=== PATIENT | male | born 1980 | race Caucasian/White ===

== ENCOUNTER 2018-07-22 00:19 | Emergency (ER) | payer OTHER, SELFPAY ==
[2018-07-22 00:20] VITALS: BP 138/93; PULSE 79; RESP 16; TEMP 35.9; O2SAT 98; BMI 34.6
--- NOTE | 2018-07-22 00:22 | ED.RN ---
RN CALLED FOR EKG, NO OLD EKGS IN MUSE
--- NOTE | 2018-07-22 01:10 | EKG12_ITS ---
Test Reason : PALPITATIONS Blood Pressure : / mmHG Vent. Rate : 069 BPM Atrial Rate : 069 BPM P-R Int : 162 ms QRS Dur : 092 ms QT Int : 386 ms P-R-T Axes : 005 063 045 degrees QTc Int : 413 ms Normal sinus rhythm Normal ECG Confirmed by INGRIS RICHMOND, RICKY ([id number]), newspaper editor DONNA AVELAR ([id number]) on 07/24/2018 1:27:05 PM Referred By: [email or web address] Confirmed By:RICKY AMADO MD
[2018-07-22 01:23] LABS: Absolute Lymphocyte Count 3.02 X10^3/ul (0.83-4.51); Absolute Neutrophil Count 2.2 X10^3/uL (2.0-7.7); Basophil# 0.04 X10^3/uL; Basophil% 0.6 % (0-1); Eosinophil# 0.26 X10^3/uL; Eosinophils% 4.1 % (0-5); Hematocrit 42.5 % (40-54); Hemoglobin 14.1 g/dl (13.0-16.5); Lymphocyte # 3.02 X10^3/ul (4.0); Mean Corp Hgb Conc 33.2 g/gl (32-36); Mean Corpuscular Hgb 27.8 pg (27.0-32.0); Mean Corpuscular Volume 83.8 fL (80-94); Mean Platelet Vol. 9.9 fl (6.2-12.0); Monocyte# 0.72 X10^3/uL; Monocyte% 11.4 % (0-10); Neutrophil # 2.24 X10^3/uL (2.7-7.7); Neutrophil % 35.7 % (47-70); Platelet Count 255 K/mm3 (150-450); RBC Distribution Width CV 13.6 % (11.6-14.6); RBC Distribution Width SD 40.9 fl (35.1-43.9); Red Blood Count 5.07 M/mm3 (4.6-6.2); White Blood Count 6.3 K/mm3 (4.4-11.0)
[2018-07-22 01:28] LABS: POSITIVE COUNT NO; POSITIVE DIFFERENTIAL NO; POSITIVE MORPHOLOGY NO
[2018-07-22 01:42] LABS: Anion Gap 4 (5-15); BUN 17 mg/dL (7-18); BUN/Creat Ratio 15.3 RATIO (10-20); Calcium,Total 8.9 mg/dL (8.5-10.1); Chloride 106 mmol/L (98-107); Creatinine, Serum 1.11 mg/dL (0.70-1.30); EST Glomerular Filtration Rate 78 mL/min (>60); Est Glom Filt Rate - Afr Amer 95 mL/min (>60); Estimated Creatinine Clearance 89.35 ml/min; Glucose 107 mg/dL (74-106); Magnesium 2.2 mg/dL (1.6-2.6); Potassium 3.9 mmol/L (3.5-5.1); Sodium Level 139 mmol/L (136-145); Thyroid Stim Hormone (TSH) 2.75 uIU/mL (0.358-3.74)
--- NOTE | 2018-07-22 02:02 | ED.DCSUM_ITS ---
- ER Visit Summary Date of Service: 07/22/18 Chief Complaint: Palpitations History of Present Illness: The patient is a 38 M who presents with palpitations. The began about 1-1/2 weeks ago. He denies any chest pain shortness of breath nausea vomiting diarrhea. No fever. He drinks a couple of sodas a week. He has low caffeine intake. He does not drink energy drinks or coffee. No history of prior similar symptoms. He denies any illicit drug use. Physical Examination: Afebrile vitals normal Moist mucous membranes Heart regular rate and rhythm Lungs are clear Abdomen soft Alert Test Results: EKG shows normal sinus rhythm at a rate of 69. CBC BMP normal. TSH normal. Magnesium normal. Emergency Department Course and Treatment: Patient has had normal rhythm on cardiac monitoring here and EKG is normal. Laboratory studies normal. He was advised that symptoms could be related to process such as PACs or PVCs. He was advised to follow-up with his primary care physician. He was advised if symptoms continue he may benefit from outpatient cardiac monitoring. He understands return for new or worsening symptoms. He was discharged. Treatment Plan: [] Disposition: Discharge Impression: Palpitations This note was generated with [employer] dictation software. It may contain incorrect words, spelling, and punctuation that were not noted in review of the chart prior to signing ED Disposition - Plan for ED Patient: Referrals: Lindy Cleveland DO [Primary Care Provider] -
--- NOTE | 2018-07-22 02:02 | ED.DEP ---
ED Disposition - Plan for ED Patient: Instructions: ED Palpitations Referrals: Lindy Cleveland DO [Primary Care Provider] -
[2018-07-22 02:09] VITALS: BP 124/81; PULSE 72; RESP 16; O2SAT 99
== END 2018-07-22 02:10 | disposition home or self-care (01) ==
LOC: ED 01:12
PROVIDERS: Emergency Provider Emergency Medicine
DX: R00.2 Palpitations (principal)
CPT/HCPCS: 80048; 83735; 84443; 85025; 93005; 99283; A4216

== ENCOUNTER → 2023-05-30 | Outpatient (CLI) | payer OTHER, SELFPAY ==
[2023-05-30 17:21] LABS: Bacteria 0 SEEN /hpf (None Seen); Mucous, Urine 0 SEEN /hpf (<or=2+); White Blood Cells 0 SEEN /hpf (0-5)
[2023-05-30 17:33] LABS: Color, Urine Yellow (Yellow); Glucose, Dipstick Normal (Normal); Ketone-Dipstick Negative (Negative); Leukocyte Esterase-Dipstick Negative /ul (Negative); Nitrite-Dipstick Negative (Negative); Occult Blood-Urine 10 /ul (Negative); Protein-Dipstick Negative (Negative); Urine Bilirubin Dipstick Negative (Negative); Urine Clarity Clear (Clear); Urine Urobilinogen Normal (Normal)
[2023-05-30 17:37] LABS: Absolute Lymphocyte Count 3.13 X10^3/uL (0.83-4.51); Absolute Neutrophil Count 4.9 X10^3/uL (2.0-7.7); Basophil# 0.05 X10^3/uL; Basophil% 0.6 % (0-1); Eosinophil# 0.26 X10^3/uL; Eosinophils% 2.9 % (0-5); Hematocrit 44.5 % (40-54); Hemoglobin 14.1 g/dL (13.0-16.5); Lymphocyte # 3.13 X10^3/ul (0.83-4.51); Lymphocyte % 35.4 % (19-41); Mean Corp Hgb Conc 31.7 g/dL (32-36); Mean Corpuscular Volume 85.2 fL (80-94); Mean Platelet Vol. 9.2 fl (6.2-12.0); Monocyte# 0.49 X10^3/uL; Monocyte% 5.5 % (0-10); NRBC Flagged by Analyzer 0 % (0-5); Neutrophil % 55.4 % (47-70); Platelet Count 295 K/mm3 (150-450); RBC Distribution Width CV 13.3 % (11.6-14.6); RBC Distribution Width SD 41.3 fl (35.1-43.9); Red Blood Count 5.22 M/mm3 (4.6-6.2); White Blood Count 8.9 K/mm3 (4.4-11.0)
[2023-05-30 17:49] LABS: Red Blood Cells-Urine 0-5 SEEN /hpf (0-5); Squamous Epithelial Cells - UA 0-5 SEEN /hpf (0-5)
[2023-05-30 18:20] LABS: ALB/GLOB Ratio 1.3 RATIO (0.9-2.4); AST(SGOT) 18 U/L (15-37); Alanine Aminotransfer ALT/SGPT 40 U/L (16-61); Albumin, Serum 4.2 g/dL (3.2-5.0); Alkaline Phosphatase 75 U/L (45-117); Anion Gap 1 (5-15); BUN 16 mg/dL (7-18); BUN/Creat Ratio 15.1 RATIO (10-20); Calcium,Total 9.4 mg/dL (8.5-10.1); Chloride 105 mmol/L (98-107); Cholesterol 162 mg/dL (200); Creatinine, Serum 1.06 mg/dL (0.70-1.30); EST Glomerular Filtration Rate 81 mL/min (>60); Est Glom Filt Rate - Afr Amer 98 mL/min (>60); Globulin 3.2 g/dL (2.2-4.2); Glucose 96 mg/dL (74-106); High Density Lipoprotein 65 mg/dL; PSA,Total- Diagnostic 0.75 ng/mL (0.0-4.0); Potassium 3.9 mmol/L (3.5-5.1); Protein, Total 7.4 g/dL (6.4-8.2); Sodium Level 135 mmol/L (136-145); Triglycerides 121 mg/dL; Very Low Density Lipoprotein 24 mg/dL (5-40)
--- OUTSIDE RECORDS SUMMARY | 2023-05-30 20:04 | XMS RPT_ITS | CCD ---
Author Name Unknown Address [address] [place] [address] Organization [facility] Care Team Providers Care Supply Chain Consultant Name Role Phone DR LINDY CLEVELAND DO Primary Care Physician Lindy Cleveland DO Primary Care Provider LINDY CLEVELAND Primary Care Unavailable LINDY CLEVELAND Primary Care Unavailable Allergies Allergy Classification Reported Allergen(s) Allergy Type Date of Onset Reaction(s) Facility (2 sources) environmental [Other] Propensity to adverse reactions 6 [facility] (1 source) OTHER; Translations: [OTHER] Propensity to adverse reactions (disorder) 6 [facility] Rep[facility] Medications Current Medications Medication Drug Class(es) Dates Sig (Normalized) Sig (Original) doxycycline monohydrate 100 mg oral tablet (1 source) Tetracycline-clas s Drug Start: 08-27-2022 End: 09-01-2022 take 1 tablet by mouth twice daily doxycycline monohydrate 100 mg tablet Take 1 tablet by mouth twice daily for 5 days. 10 tablet 0 08/27/2022 09/01/2022 Active Completed/Discontinued Medications Medication Drug Class(es) Dates Sig (Normalized) Sig (Original) [id number] 200 actuat albuterol 0.09 mg/actuat metered dose inhaler (2 sources) beta2-Adrenergic Agonist Start: 09-21-2006 take 2 puff(s) by inhalation every four hours as needed for cough Albuterol Sulfate (PROVENTIL HFA) 90 mcg/Actuation INHALATION HFAA Indications: Allergic rhinitis, cause unspecified 2 puffs every four hours as needed for cough, wheezing , chest tightness or shortness of breath and 15-20 minutes pre-exercise. Use with spacer. 1 2 09/21/2006 Active Problems Problem Classification Problem Date Documented Da te Episodic/Chronic Other upper respiratory infections (1 source) Chronic sinusitis; Translations: [Chronic sinusitis, unspecified] Chronic Other upper respiratory infections (1 source) Acute upper respiratory infection; Translations: [Acute upper respiratory infection, unspecified] 02-25-2023 Episodic Results Test Name Value Interpretation Reference Range Facil ity Vital Signs Date Time Vital Sign Value Performing Clinician Yohan jenkins 02-25-2023 09:16-0400 Body temperature 99.3 [degF] Mayra Avalos EVENT SECURITY OFFICER.REFUSE LABORER Work Phone: [facility] 02-25-2023 09:16-0400 Body weight 107.41 kg Mayra Avalos EVENT SECURITY OFFICER.REFUSE LABORER Work Phone: [facility] 02-25-2023 09:16-0400 Diastolic blood pressure 84 mm[Hg] Mayra Avalos EVENT SECURITY OFFICER.REFUSE LABORER Work Phone: [facility] 02-25-2023 09:16-0400 Heart rate 88 /min Mayra Avalos EVENT SECURITY OFFICER.REFUSE LABORER Work Phone: [facility] 02-25-2023 09:16-0400 Respiratory rate 16 /min Mayra Avalos EVENT SECURITY OFFICER.REFUSE LABORER Work Phone: [facility] 02-25-2023 09:16-0400 SaO2% (BldA) [Mass fraction] 95 % Mayra Avalos EVENT SECURITY OFFICER.REFUSE LABORER Work Phone: [facility] 02-25-2023 09:16-0400 Systolic blood pressure 132 mm[Hg] Mayra Avalos EVENT SECURITY OFFICER.REFUSE LABORER Work Phone: [facility] 08-27-2022 14:54-0400 Body temperature 98.4 [degF] Krislyn Aberegg PA Work Phone: [facility] 08-27-2022 14:54-0400 Body weight 110.41 kg Krislyn Aberegg PA Work Phone: [facility] 08-27-2022 14:54-0400 Diastolic blood pressure 82 mm[Hg] Krislyn Aberegg PA Work Phone: [facility] 08-27-2022 14:54-0400 Heart rate 90 /min Krislyn Aberegg PA Work Phone: [facility] 08-27-2022 14:54-0400 Respiratory rate 16 /min Krislyn Aberegg PA Work Phone: [facility] 08-27-2022 14:54-0400 SaO2% (BldA) [Mass fraction] 96 % Krislyn Aberegg PA Work Phone: [facility] 08-27-2022 14:54-0400 Systolic blood pressure 128 mm[Hg] Krislyn Aberegg PA Work Phone: [facility] Encounters Encounter Date Encounter Type Care Provider Facility Start: 02-25-2023 End: 02-25-2023 ambulatory LINDYKRISTOPHER CLEVELAND Facility:[facility] Start: 02-25-2023 End: 02-25-2023 Patient encounter procedure Mayra Avalos APRN.CNP Work Phone: [facility] Procedures Date Procedure Procedure Detail Performing Clinician Start: 02-25-2023 STREP A MOLECULAR (POC) Mayra Avalos APRN.REFUSE LABORER Work Phone: Plan of Treatment Date Care Activity Detail Author Start: 12-23-2022 Influenza vaccination [facility] Start: 04-24-2022 DEPRESSION ASSESSMENT DEPRESSION ASS ESSMENT [facility] Start: 2014 Lipid 1996 panel - S jose miguel or Plasma Lipid Screening [facility] Start: 2014 LIPID SCREEN LIPID SCREEN [facility] Start: 1998 Urine microalbumin profile DTAP,TDAP ,TD (1 - Tdap) [facility] Start: 08-27-1997 Urine microalbumin profile DTa P,Tdap,Td Vaccine (2 - Tdap) [facility] Start: 1997 HEPATITIS C SCREENING HEPATITIS C SC REENING [facility] Start: 1997 HIV SCREENING HIV SCREENING [facility] Start: 1979 COVID-19 VACCINE (#1) COVID-19 VACCI NE (#1) [facility] Start: 1979 HEPATITIS B (1 of 3 - 3-dose series) HEPATITIS B (1 of 3 - 3-dose series) [facility] Immunizations Immunization Date Immunization Notes Care Provider Lisa taylor 02-27-2016 influenza virus vaccine, unspecified formulation Mayra Avalos APRN.REFUSE LABORER Work Phone: [facility] 01-24-2009 influenza virus vaccine, unspecified formulation Jeremie GONZALEZ Work Phone: [facility] Work Phone: Payers Date Payer Category Payer Unknown [employer] [id number] 2020-Present [phone] [address] [place] [address] PPO [id number] 2020 Unknown [id number] Social History Date Type Detail Facility Never smoker [facility] Sex Assigned At Male [facility] Start: 08-27-2022 Tobacco smoking stat [facility] Never smoked tobacco [facility] Start: 08-27-2022 Tobacco use and exposure Smokeless tobacco non-user [facility] Start: 08-27-2022 End: 02-25-2023 Alcohol intake Current non-drinker of alcohol (finding) [facility] Start: 1980 Sex Assigned At Not on file [facility] Start: 11-05-2020 End: 02-25-2023 History of Social function [facility] Start: 11-05-2020 End: 02-25-2023 Tobacco use panel [facility] National Score (1-100), lower number is lower risk Not on file [facility] Progress note 02-25-2023 Note Date & Type Note Facility 02-25-2023 Note HNO ID: [id number] Author: Mayra Avalos APRN.CNP Service: ? Author Type: Nurse Practitioner Type: Progress Notes Filed: 02/25/2023 9:43 AM Note Text: This note was created using NoteWriter. Subjective Bryant Marks is a 42 year old male. 42 year old male with PMH GERD presents for illness. Acute onset 4 days ago +sore throat +cough +congestion + headache +stuffy nose +body aches +chills Denies N/V/D Denies fever Has used Mucinex Ibuprofen Denies tobacco usage. The history is provided by the patient. No customs collector was used. Cough This is a new problem. The current episode started more than 2 days ago. The problem occurs constantly. The problem has not changed since onset.The cough is Non-productive. There has been no fever. Associated symptoms include chills, ear congestion, headaches, rhinorrhea, sore throat and myalgias. Pertinent negatives include no chest pain, no sweats, no weight loss, no ear pain, no shortness of breath, no wheezing and no eye redness. He has tried decongestants for the symptoms. The treatment provided no relief. He is not a smoker. His past medical history does not include bronchitis, pneumonia, bronchiectasis, COPD, emphysema or asthma. History reviewed. No pertinent past medical history. No past surgical history on file. ALLERGIES Environmental [Other] MEDICATIONS OMEPRAZOLE (PRILOSEC ORAL) Take by mouth. CETIRIZINE HCL (ZYRTEC ORAL) Take by mouth. (Patient not taking: Reported on 11/05/2020 ) clotrimazole (ANTIFUNGAL, CLOTRIMAZOLE,) 1 % cream Apply 1 application to affected area twice daily. (Patient not taking: Reported on 11/05/2020 ) cetirizine-pseudoephedrine (ZYRTEC-D) 5-120 mg ORAL Tb12 one tablet twice a day as needed (Patient not taking: Reported on 11/05/2020) mometasone (NASONEX) 50 mcg/Actuation NASAL Gackle 2 sprays in each nostril once a day (Patient not taking: Reported on 11/05/2020) Albuterol Sulfate (PROVENTIL HFA) 90 mcg/Actuation INHALATION HFAA 2 puffs every four hours as needed for cough, wheezing , chest tightness or shortness of breath and 15-20 minutes pre-exercise. Use with spacer. (Patient not taking: Reported on 11/05/2020) FAMILY HISTORY Problem Relation Age of Onset Prostate Cancer Paternal Grandfather Diabetes Maternal Grandmother Hypertension Father Social History Tobacco Use Smoking status: Never Smokeless tobacco: Never Substance Use Topics Alcohol use: No Drug use: No Review of Systems Constitutional: Positive for chills and fatigue. Negative for activity change and weight loss. HENT: Positive for congestion, rhinorrhea, sinus pressure, sinus pain and sore throat. Negative for ear pain. Eyes: Negative for pain, discharge, redness and itching. Respiratory: Positive for cough. Negative for shortness of breath and wheezing. Cardiovascular: Negative for chest pain. Gastrointestinal: Negative for abdominal pain, diarrhea, nausea and vomiting. Musculoskeletal: Positive for myalgias. Skin: Negative for color change, pallor and rash. Allergic/Immunologic: Negative for environmental allergies, food allergies and immunocompromised state. Neurological: Positive for headaches. Negative for dizziness and facial asymmetry. Hematological: Negative for adenopathy. Does not bruise/bleed easily. Psychiatric/Behavioral: Negative for agitation and behavioral problems. Objective BP 132/84 Pulse 88 Temp 37.4 ?C (99.3 ?F) (Tympanic) Resp 16 Wt 107.4 kg (236 lb 12.8 oz) SpO2 95% Physical Exam Vitals and nursing note reviewed. Constitutional: General: He is not in acute distress. Appearance: Normal appearance. He is not ill-appearing, toxic-appearing or diaphoretic. HENT: Head: Normocephalic and atraumatic. Right Ear: External ear normal. Left Ear: External ear normal. Nose: Nose normal. No congestion or rhinorrhea. Mouth/Throat: Mouth: Mucous membranes are moist. Pharynx: Oropharynx is clear. Posterior oropharyngeal erythema present. No oropharyngeal exudate. Eyes: General: Right eye: No discharge. Left eye: No discharge. Extraocular Movements: Extraocular movements intact. Conjunctiva/sclera: Conjunctivae normal. Pupils: Pupils are equal, round, and reactive to light. Cardiovascular: Rate and Rhythm: Normal rate and regular rhythm. Pulses: Normal pulses. Heart sounds: Normal heart sounds. No murmur heard. No friction rub. No gallop. Pulmonary: Effort: Pulmonary effort is normal. No respiratory distress. Breath sounds: Normal breath sounds. No stridor. No wheezing, rhonchi or rales. Chest: Chest wall: No tenderness. Abdominal: General: Abdomen is flat. There is no distension. Palpations: Abdomen is soft. There is no mass. Tenderness: There is no abdominal tenderness. There is no guarding or rebound. Hernia: No hernia is present. Musculoskeletal: General: No swelling, tenderness, deformity or signs of inj (more content not included)... [facility] History of Present illness Narrative 02-25-2023 Mayra Avalos APRN.REFUSE LABORER - 02/25/2023 9:25 AM EDT Note Date & Type Note Facility 02-25-2023 History of Presen t illness Narrative This note was created using [employer]. Subjective Bryant Marks is a 42 year old male. 42 year old male with PMH GERD presents for illness. Acute onset 4 days ago +sore throat +cough +congestion + headache +stuffy nose +body aches +chills Denies N/V/D Denies fever Has used Mucinex Ibuprofen Denies tobacco usage. The history is provided by the patient. No customs collector was used. Cough This is a new problem. The current episode started more than 2 days ago. The problem occurs constantly. The problem has not changed since onset.The cough is Non-productive. There has been no fever. Associated symptoms include chills, ear congestion, headaches, rhinorrhea, sore throat and myalgias. Pertinent negatives include no chest pain, no sweats, no weight loss, no ear pain, no shortness of breath, no wheezing and no eye redness. He has tried decongestants for the symptoms. The treatment provided no relief. He is not a smoker. His past medical history does not include bronchitis, pneumonia, bronchiectasis, COPD, emphysema or asthma. History reviewed. No pertinent past medical history. No past surgical history on file. ALLERGIES Environmental [Other] MEDICATIONS OMEPRAZOLE (PRILOSEC ORAL) Take by mouth. CETIRIZINE HCL (ZYRTEC ORAL) Take by mouth. (Patient not taking: Reported on 11/05/2020 ) clotrimazole (ANTIFUNGAL, CLOTRIMAZOLE,) 1 % cream Apply 1 application to affected area twice daily. (Patient not taking: Reported on 11/05/2020 ) cetirizine-pseudoephedrine (ZYRTEC-D) 5-120 mg ORAL Tb12 one tablet twice a day as needed (Patient not taking: Reported on 11/05/2020) mometasone (NASONEX) 50 mcg/Actuation NASAL Gackle 2 sprays in each nostril once a day (Patient not taking: Reported on 11/05/2020) Albuterol Sulfate (PROVENTIL HFA) 90 mcg/Actuation INHALATION HFAA 2 puffs every four hours as needed for cough, wheezing , chest tightness or shortness of breath and 15-20 minutes pre-exercise. Use with spacer. (Patient not taking: Reported on 11/05/2020) FAMILY HISTORY Problem Relation Age of Onset Prostate Cancer Paternal Grandfather Diabetes Maternal Grandmother Hypertension Father Social History Tobacco Use Smoking status: Never Smokeless tobacco: Never Substance Use Topics Alcohol use: No Drug use: No Review of Systems Constitutional: Positive for chills and fatigue. Negative for activity change and weight loss. HENT: Positive for congestion, rhinorrhea, sinus pressure, sinus pain and sore throat. Negative for ear pain. Eyes: Negative for pain, discharge, redness and itching. Respiratory: Positive for cough. Negative for shortness of breath and wheezing. Cardiovascular: Negative for chest pain. Gastrointestinal: Negative for abdominal pain, diarrhea, nausea and vomiting. Musculoskeletal: Positive for myalgias. Skin: Negative for color change, pallor and rash. Allergic/Immunologic: Negative for environmental allergies, food allergies and immunocompromised state. Neurological: Positive for headaches. Negative for dizziness and facial asymmetry. Hematological: Negative for adenopathy. Does not bruise/bleed easily. Psychiatric/Behavioral: Negative for agitation and behavioral problems. Objective BP 132/84 Pulse 88 Temp 37.4 C (99.3 F) (Tympanic) Resp 16 Wt 107.4 kg (236 lb 12.8 oz) SpO2 95% Physical Exam Vitals and nursing note reviewed. Constitutional: General: He is not in acute distress. Appearance: Normal appearance. He is not ill-appearing, toxic-appearing or diaphoretic. HENT: Head: Normocephalic and atraumatic. Right Ear: External ear normal. Left Ear: External ear normal. Nose: Nose normal. No congestion or rhinorrhea. Mouth/Throat: Mouth: Mucous membranes are moist. Pharynx: Oropharynx is clear. Posterior oropharyngeal erythema present. No oropharyngeal exudate. Eyes: General: Right eye: No discharge. Left eye: No discharge. Extraocular Movements: Extraocular movements intact. Conjunctiva/sclera: Conjunctivae normal. Pupils: Pupils are equal, round, and reactive to light. Cardiovascular: Rate and Rhythm: Normal rate and regular rhythm. Pulses: Normal pulses. Heart sounds: Normal heart sounds. No murmur heard. No friction rub. No gallop. Pulmonary: Effort: Pulmonary effort is normal. No respiratory distress. Breath sounds: Normal breath sounds. No stridor. No wheezing, rhonchi or rales. Chest: Chest wall: No tenderness. Abdominal: General: Abdomen is flat. There is no distension. Palpations: Abdomen is soft. There is no mass. Tenderness: There is no abdominal tenderness. There is no guarding or rebound. Hernia: No hernia is present. Musculoskeletal: General: No swelling, tenderness, deformity or signs of injury. Normal range of motion. Cervical back: Normal range of motion and neck supple. No rigidity or tenderness. Right lower leg: No edema. Left lower leg: No edema. Lymphadenopathy: Cervical: Cervical adenopathy present. Skin: General: Skin is warm and dry. Capillary Refill: Capillary refill takes less than 2 seconds. Coloration: Skin is not jaundiced or pale. Findings: No bruising, lesion or rash. Neurological: General: No focal deficit present. Mental Status: He is alert and oriented to person, place, and time. Cranial Nerves: No cranial nerve deficit. Sensory: No sensory deficit. Motor: No weakness. Coordination: Coordination normal. Gait: Gait normal. Deep Tendon Reflexes: Reflexes normal. Psychiatric: Mood and Affect: Mood normal. Behavior: Behavior normal. Thought Content: Thought content normal. Assessment and Plan ASSESSMENT/PLAN: 1. URI, acute - ICD9: 465.9, ICD10: J06.9 - Discussed viral etiology and rationale for treatment. - Group A strep molecular testing negative - Symptomatic treatment with prn analgesia - Supportive care with fluids and rest - The patient may also use OTC cough and cold meds as needed, warm salt water gargles, throat lozenges and/or OTC throat spray as needed, and nasal saline gtts and suction prn. - Follow up in 3-5 days if symptoms persist or sooner if worsening of symptoms - STREP A MOLECULAR (POC) Mayra Avalos APRN.PENNIE documented in this encounter [facility] Progress note 08-27-2022 Note Date & Type Note Facility 08-27-2022 Note HNO ID: [id number] Author: LISA Berry Service: ? Author Type: Physician Tapper Hand Type: Progress Notes Filed: 08/27/2022 3:05 PM Note Text: This note was created using [employer]. Subjective Bryant Marks is a 42 year old male. HPI 42-year-old male presents for congestion, cough. Patient states he has had congestion cough for about 3 weeks. He has had some sinus congestion. He does have environmental allergies. States he has had a cough for about 3 weeks as well. He has been coughing up some phlegm. He has been taking Mucinex and Motrin. No fevers. No chest pain or shortness of breath. No history of asthma or COPD. No vomiting or diarrhea. No other complaints History reviewed. No pertinent past medical history. No past surgical history on file. ALLERGIES Environmental [Other] MEDICATIONS OMEPRAZOLE (PRILOSEC ORAL) Take by mouth. doxycycline monohydrate 100 mg tablet Take 1 tablet by mouth twice daily for 5 days. CETIRIZINE HCL (ZYRTEC ORAL) Take by mouth. (Patient not taking: Reported on 11/05/2020 ) clotrimazole (ANTIFUNGAL, CLOTRIMAZOLE,) 1 % cream Apply 1 application to affected area twice daily. (Patient not taking: Reported on 11/05/2020 ) cetirizine-pseudoephedrine (ZYRTEC-D) 5-120 mg ORAL Tb12 one tablet twice a day as needed (Patient not taking: Reported on 11/05/2020) mometasone (NASONEX) 50 mcg/Actuation NASAL Gackle 2 sprays in each nostril once a day (Patient not taking: Reported on 11/05/2020) Albuterol Sulfate (PROVENTIL HFA) 90 mcg/Actuation INHALATION HFAA 2 puffs every four hours as needed for cough, wheezing , chest tightness or shortness of breath and 15-20 minutes pre-exercise. Use with spacer. (Patient not taking: Reported on 11/05/2020) FAMILY HISTORY Problem Relation Age of Onset Prostate Cancer Paternal Grandfather Diabetes Maternal Grandmother Hypertension Father Social History Tobacco Use Smoking status: Never Smokeless tobacco: Never Substance Use Topics Alcohol use: No Drug use: No Review of Systems Constitutional: Negative for chills and fever. HENT: Positive for congestion. Negative for sore throat. Respiratory: Positive for cough. Negative for shortness of breath. Gastrointestinal: Negative for diarrhea and vomiting. Objective BP 128/82 Pulse 90 Temp 36.9 ?C (98.4 ?F) (Tympanic) Resp 16 Wt 110.4 kg (243 lb 6.4 oz) SpO2 96% Physical Exam Vitals and nursing note reviewed. Constitutional: General: He is not in acute distress. Appearance: Normal appearance. He is not toxic-appearing. HENT: Nose: Nose normal. Mouth/Throat: Mouth: Mucous membranes are moist. Eyes: Conjunctiva/sclera: Conjunctivae normal. Cardiovascular: Rate and Rhythm: Normal rate and regular rhythm. Pulmonary: Effort: Pulmonary effort is normal. Breath sounds: Normal breath sounds. Skin: General: Skin is warm and dry. Neurological: Mental Status: He is alert. Assessment and Plan ASSESSMENT/PLAN: 1. Sinobronchitis - ICD9: 473.9, 490, ICD10: J32.9, J40 - Will begin treatment with Doxycycline - The patient should also be given OTC decongestants prn for the first 5-7 days of treatment. - Supportive care with plenty of fluids, rest, and analgesia prn. Diagnosis and treatment plan were discussed and questions were answered to the patient's satisfaction. Pt acknowledged understanding of concepts and follow up plan. Specific signs and symptoms that would indicate the need for higher level of care were discussed in detail warranting prompt ER evaluation. LISA Berry [facility] History of Present illness Narrative 08-27-2022 LISA Berry - 08/27/2022 3:01 PM EDT Note Date & Type Note Facility 08-27-2022 History of Presen t illness Narrative This note was created using [employer]. Subjective Bryant Marks is a 42 year old male. HPI 42-year-old male presents for congestion, cough. Patient states he has had congestion cough for about 3 weeks. He has had some sinus congestion. He does have environmental allergies. States he has had a cough for about 3 weeks as well. He has been coughing up some phlegm. He has been taking Mucinex and Motrin. No fevers. No chest pain or shortness of breath. No history of asthma or COPD. No vomiting or diarrhea. No other complaints History reviewed. No pertinent past medical history. No past surgical history on file. ALLERGIES Environmental [Other] MEDICATIONS OMEPRAZOLE (PRILOSEC ORAL) Take by mouth. doxycycline monohydrate 100 mg tablet Take 1 tablet by mouth twice daily for 5 days. CETIRIZINE HCL (ZYRTEC ORAL) Take by mouth. (Patient not taking: Reported on 11/05/2020 ) clotrimazole (ANTIFUNGAL, CLOTRIMAZOLE,) 1 % cream Apply 1 application to affected area twice daily. (Patient not taking: Reported on 11/05/2020 ) cetirizine-pseudoephedrine (ZYRTEC-D) 5-120 mg ORAL Tb12 one tablet twice a day as needed (Patient not taking: Reported on 11/05/2020) mometasone (NASONEX) 50 mcg/Actuation NASAL Gackle 2 sprays in each nostril once a day (Patient not taking: Reported on 11/05/2020) Albuterol Sulfate (PROVENTIL HFA) 90 mcg/Actuation INHALATION HFAA 2 puffs every four hours as needed for cough, wheezing , chest tightness or shortness of breath and 15-20 minutes pre-exercise. Use with spacer. (Patient not taking: Reported on 11/05/2020) FAMILY HISTORY Problem Relation Age of Onset Prostate Cancer Paternal Grandfather Diabetes Maternal Grandmother Hypertension Father Social History Tobacco Use Smoking status: Never Smokeless tobacco: Never Substance Use Topics Alcohol use: No Drug use: No Review of Systems Constitutional: Negative for chills and fever. HENT: Positive for congestion. Negative for sore throat. Respiratory: Positive for cough. Negative for shortness of breath. Gastrointestinal: Negative for diarrhea and vomiting. Objective BP 128/82 Pulse 90 Temp 36.9 C (98.4 F) (Tympanic) Resp 16 Wt 110.4 kg (243 lb 6.4 oz) SpO2 96% Physical Exam Vitals and nursing note reviewed. Constitutional: General: He is not in acute distress. Appearance: Normal appearance. He is not toxic-appearing. HENT: Nose: Nose normal. Mouth/Throat: Mouth: Mucous membranes are moist. Eyes: Conjunctiva/sclera: Conjunctivae normal. Cardiovascular: Rate and Rhythm: Normal rate and regular rhythm. Pulmonary: Effort: Pulmonary effort is normal. Breath sounds: Normal breath sounds. Skin: General: Skin is warm and dry. Neurological: Mental Status: He is alert. Assessment and Plan ASSESSMENT/PLAN: 1. Sinobronchitis - ICD9: 473.9, 490, ICD10: J32.9, J40 - Will begin treatment with Doxycycline - The patient should also be given OTC decongestants prn for the first 5-7 days of treatment. - Supportive care with plenty of fluids, rest, and analgesia prn. Diagnosis and treatment plan were discussed and questions were answered to the patient's satisfaction. Pt acknowledged understanding of concepts and follow up plan. Specific signs and symptoms that would indicate the need for higher level of care were discussed in detail warranting prompt ER evaluation. LISA Berry documented in this encounter [facility] Evaluation + Plan note Note Date & Type Note Facility Evaluation + Plan note No data available for this section [facility] Evaluation note Note Date & Type Note Facility documented in this encounter [facility] Evaluation note Note Date & Type Note Facility documented in this encounter [facility] Discharge instructions Note Date & Type Note Facility Hospital Discharge instructions No data available for this section [facility] Summary Purpose Family History No Family History Records FoundNo Family History Records Found Advance Directives No Advanced Directives Records FoundNo Advanced Directives Records Found Additional Source Comments (unrecognized sect ion and content) No Status Records FoundNo Status Records Found INFORMATION SOURCE (unrecogn ized section and content) DATE CREATED AUTHOR AUTHOR'S ORGANIZ ATION 02/26/2023 [facility] Source Comments (unrecognize d section and content) In the event this informatio n is protected by the Federal Confidentiality of Alcohol and Drug Abuse Patient Records regulations: The Federal rules restrict any use of the information to criminally investigate or prosecute any alcohol or drug abuse patient[facility] event this information is protected by the Federal Confidentiality of Alcohol and Drug Abuse Patient Records regulations: The Federal rules restrict any use of the information to criminally investigate or prosecute any alcohol or drug abuse patient.[facility] Reason for Visit (unrecogniz ed section and content) Reason Comments Cough Cough, congestion, H A and stuffy nose x 4 days Care Teams (unrecognized sec tion and content) Supply Chain Consultant Relationship Specialty Start Date End Date Lindy Cleveland DO PCP - General Family Medicine 07/14/16 FOR RECORDS PERTAINING TO PATIENTS WHO ARE OR HAVE BEEN ENROLLED IN A CHEMICAL DEPENDENCY/SUBSTANCEABUSE PROGRAM, SOME INFORMATION MAY BE OMITTED. This clinical summary was aggregated from multiple sources. Caution should be exercised in using it in the provision of clinical care. This summary normalizes information from multiple sources, and as a consequence, information in this document may materially change the coding, format and clinical context of patient data. In addition, data may be omitted in some cases. CLINICAL DECISIONS SHOULD BE BASED ON THE PRIMARY CLINICAL RECORDS. [facility] provides no warranty or guarantee of the accuracy or completeness of information in this document.
== END | disposition home or self-care (01) ==
LOC: LAB 17:17
PROVIDERS: PCP Family Medicine; Referring Provider Family Medicine; Visit Provider Family Medicine
DX: Z00.00 Encounter for general adult medical examination without abnormal findings (principal); R10.9 Unspecified abdominal pain; G89.29 Other chronic pain; Z86.39 Personal history of other endocrine, nutritional and metabolic disease
CPT/HCPCS: 36415; 80053; 80061; 81001; 83036; 84153; 85025

== ENCOUNTER 2023-11-04 10:04 | Emergency (ER) | payer OTHER, SELFPAY ==
[2023-11-04 10:05] VITALS: BP 159/101; PULSE 68; PULSE 72; RESP 12; TEMP 36.2; O2SAT 100; O2SAT 99; BMI 34.9
--- NOTE | 2023-11-04 11:00 | US_ITS ---
INDICATION: left testicle/groin pain EXAMINATION: Ultrasound US Scrotum (Contents) TECHNIQUE: Realtime ultrasound of the testicles was performed with grayscale, Color Doppler and spectral Doppler analysis. COMPARISON: No relevant prior comparison study available FINDINGS: RIGHT: TESTIS: 4.9 x 3.7 x 3.1 cm. Normal in size and echotexture, without focal lesion. COLOR DOPPLER: Normal arterial flow present in the testicle with monophasic waveforms. EPIDIDYMIS: The right epididymal head measures about 1.1 cm. No focal lesion is seen. [Normal color Doppler flow pattern in the epididymis. HYDROCELE: There is small right hydrocele. VARICOCELE: None. LEFT: TESTIS: 4 x 3.1 x 2.6 cm. Normal in size and echotexture, without focal lesion. COLOR DOPPLER: Normal arterial flow present in the testicle with monophasic waveforms. EPIDIDYMIS: The left epididymal head measures 1.1 cm. No focal lesion is seen. [Normal color Doppler flow pattern in the epididymis. HYDROCELE: None. VARICOCELE: None. US/Testicular with Arterial Flow IMPRESSION: 1. No evidence of testicular torsion at the time this examination was performed. 2. Small right hydrocele. Electronically Signed: Michael Casper MD at 13:14 EDT ,
[2023-11-04 11:14] LABS: Bacteria 0 SEEN /hpf (None Seen); Mucous, Urine 0 SEEN /hpf (<or=2+); Red Blood Cells-Urine 0 SEEN /hpf (0-5); Squamous Epithelial Cells - UA 0 SEEN /hpf (0-5); White Blood Cells 0 SEEN /hpf (0-5)
[2023-11-04 11:18] LABS: Color, Urine Yellow (Yellow); Glucose, Dipstick Normal (Normal); Ketone-Dipstick Negative (Negative); Leukocyte Esterase-Dipstick Negative /ul (Negative); Nitrite-Dipstick Negative (Negative); Occult Blood-Urine Negative /ul (Negative); Protein-Dipstick Negative (Negative); Urine Bilirubin Dipstick Negative (Negative); Urine Clarity Clear (Clear); Urine Urobilinogen Normal (Normal)
--- NOTE | 2023-11-04 11:24 | EX.ED.GUMALE ---
HPI History of Present Illness Chief Complaint: Male Pain/Injury Narrative Narrative: 43-year-old male who denies significant past medical history presents with left testicular pain that began this morning. He states that throughout the week, he felt pinching in his left groin/testicle that was very transient. He awoke this morning, and had to urinate, and when he went to get up, felt exquisite pain in his left testicle. He denies any fevers or chills, no nausea or vomiting, no abdominal or flank pain. He denies dysuria or hematuria, no problems with bowel movements. No penile discharge. His pain is worsened with any movement and relieved by remaining still. It was more of a constant pain this morning because after getting up to go to the bathroom, he had to lay on the floor secondary to the pain. [facility] Medical History (Updated 11/04/23 @ 13:25 by Braeden Mohan MD) Sleep apnea Asthma Chronic migraine Skin cancer Contact with and (suspected) exposure to other viral communicable diseases Acute pharyngitis, unspecified Home Medications ?Medication ?Instructions ?Recorded ?Last Taken ?Type omeprazole 20 mg capsule,delayed 20 mg PO DAILY 11/07/15 Unknown History release hydrocodone-acetaminophen 5-325mg 1 tab PO Q6H PRN PRN Pain 3 days 11/04/23 Unknown Rx 5mg-325mg #12 TABLETS Allergy/AdvReac Type Severity Reaction Status Date / Time No Known Allergies Allergy Verified 11/04/23 10:04 Family History (Updated 05/30/23 @ 16:36 by Avis Vaughan MA) Grandfather Parkinson disease Surgical History (Updated 05/30/23 @ 16:38 by Avis Vaughan MA) S/P skin biopsy Social History (Updated 05/30/23 @ 16:40 by Avis Vaughan MA) adopted: No household members: spouse and children number of children: 4 current occupational status: employed current occupation: [employer] pets and animals: Yes pets and animals: dog(s) Smoking Status: Never smoker alcohol intake: never substance use type: does not use caffeine: Yes (1) Type: coffee frequency: does not exercise seatbelt use: always do you feel safe at home: Yes ROS ROS ED ROS Narrative Constitutional: No fever, no chills. HEENT: No sore throat. No neck pain. No loss of vision. No rhinorrhea. Cardiovascular: No chest pain. No palpitations. No pedal edema. Respiratory: No cough, no shortness of breath. Abdominal: No abdominal pain. No nausea. No vomiting. Genitourinary: No dysuria. No hematuria. Positive left testicular pain/left groin pain, worse with movement and relieved by remaining still. Musculoskeletal: No myalgias. No arthralgias. Neurologic: No headaches. No dizziness. No lightheadedness. Skin: No rash. No change in color. Psychiatric: No depression. No anxiety. EXAM Physical Exam Narrative Exam Narrative: Afebrile. Vital signs noted. Regular rate and rhythm. Lungs are clear to auscultation bilaterally. Abdomen soft and nontender with normal active bowel sounds. No CVA tenderness to percussion bilaterally. Chaperoned genitourinary examination reveals no evidence of palpable inguinal hernia. There is mild epididymal tenderness, no testicular tenderness. No noted penile discharge. Const Vital Signs: 11/04/23 10:05 11/04/23 10:05 Temperature 97.1 F L Temperature Source Temporal Pulse Rate 68 72 Respiratory Rate 12 12 Blood Pressure 159/101 H 159/101 H Blood Pressure Mean 120 120 Pulse Ox 99 100 Oxygen Delivery Method Room Air Room Air MDM MDM MDM Narrative Medical decision making narrative: In the differential diagnosis is orchitis versus testicular torsion versus epididymitis. History and physical is more supportive of epididymitis. Patient has been sexually active within the last week. Urinalysis will be obtained to help rule out any infection, and additionally testicular ultrasound was ordered. I reviewed his urinalysis and is negative for infection. There are 0 WBCs. I do not feel antibiotics are indicated. I reviewed the radiology report of the testicular ultrasound and there is no evidence of torsion. He does have a small right hydrocele which I think is not pertinent to his left testicular pain. At this point in time, upon repeat examination at approximately 1:25 PM, he is resting comfortably using his tablet, states he feels improved prior to when he came. While I am unsure as to the cause of his left testicular pain, I do feel he can be discharged to follow-up with urology. He was given a prescription for 12 [place] tablets. He was told he may need to wear more supportive undergarments. Return instructions to the emergency department were reviewed. Disposition is discharged home in stable condition. History & Record Review Discussion w/independent historian: Patient Lab Data Attestation: I reviewed the patient's lab results. Labs: Laboratory Results - last 24 hr 11/04/23 11:10 Urine Color Yellow Urine Clarity Clear Urine pH 7.0 Ur Specific [place] 1.030 Urine Protein Negative Urine Glucose (UA) Normal Urine Ketones Negative Urine Occult Blood Negative Urine Nitrite Negative Urine Bilirubin Negative Urine Urobilinogen Normal Ur Leukocyte Esterase Negative Urine RBC 0 SEEN Urine WBC 0 SEEN Ur Squamous Epith Cells 0 SEEN Urine Bacteria 0 SEEN Urine Mucus 0 SEEN Radiography Diagnostic Testing: Clinical Impression(s) from Imaging Studies Testicular Ultrasound 11/04/23 11:00 IMPRESSION: 1. No evidence of testicular torsion at the time this examination was performed. 2. Small right hydrocele. Electronically Signed: Michael Casper MD at 13:14 EDT Reading Location ID and State: [facility] / [place] Tel , Service support , Discharge Plan Triage Chief Complaint: Male Pain/Injury ED Provider: Braeden Mohan Dx/Rx/DC Orders Clinical Impression: Left testicular pain Instructions: ED Testicular Pain, Unclear Cause Prescriptions: New hydrocodone-acetaminophen 5-325 mg tablet 1 tab PO Q6H PRN PRN (Reason: Pain) 3 Days Qty: 12 0RF No Action omeprazole 20 MG capsule,delayed release(DR/EC) 20 mg PO DAILY Patient Comments: Primary Care Provider: Nando Segovia Referrals: Nando Segovia, DO [Primary Care Provider] - 3-5 Days if not improving Chas Hernandez MD [Med Staff - Active Staff] - As soon as possible Activity Restrictions/Additional Instructions: You may want to consider wearing more supportive undergarments. Return with increased pain, new or worsening symptoms. Follow-up with urology. Print Language: Faroese Disposition Disposition: Home, Self Care
== END 2023-11-04 13:34 | disposition home or self-care (01) ==
PROVIDERS: Emergency Provider Emergency Medicine; PCP Family Medicine; Visit Provider Emergency Medicine
DX: N50.812 Left testicular pain (principal); Z85.828 Personal history of other malignant neoplasm of skin
CPT/HCPCS: 76870; 81001; 93976; 99282

== ENCOUNTER → 2024-06-04 | Outpatient (CLI) | payer OTHER, SELFPAY ==
[2024-06-04 17:07] LABS: PSA,Total- Diagnostic 0.86 ng/mL (0.0-4.0)
[2024-06-04 21:16] LABS: Hemoglobin A1c 6.2 % (3.8-5.6)
== END | disposition home or self-care (01) ==
LOC: BIMLAB 15:15
PROVIDERS: PCP Family Medicine; Referring Provider Family Medicine; Visit Provider Family Medicine
DX: R35.0 Frequency of micturition (principal); Z86.39 Personal history of other endocrine, nutritional and metabolic disease
CPT/HCPCS: 36415; 83036; 84153

== ENCOUNTER 2024-06-18 10:31 | Day surgery (SDC) | payer OTHER, SELFPAY ==
[2024-06-18] VITALS (8 sets, daily range): BP systolic 116–133; BP diastolic 74–90; PULSE 68–79; RESP 12–18; TEMP 36.2–36.9; O2SAT 93–100; BMI 35.4
--- NOTE | 2024-06-18 10:47 | EKG12_ITS ---
Test Reason : PREOP Blood Pressure : */* mmHG Vent. Rate : 67 BPM Atrial Rate : 67 BPM P-R Int : 178 ms QRS Dur : 94 ms QT Int : 386 ms P-R-T Axes : 16 61 42 degrees QTcB Int : 407 ms Normal sinus rhythm Normal ECG When compared with ECG of 22-Jul-2018 00:27, No significant change was found Confirmed by Octavio Santoyo ([id number]), editor trade journal GILBERT HEBERT ([id number]) on 06/20/2024 9:26:16 AM Referred By: Bob Gan Confirmed By: Octavio Santoyo
--- NOTE | 2024-06-18 11:00 | PCM.HP.BLA ---
History and Physical Date of Admission: 06/18/24 Intake Vital Signs 05/28/2515:10 06/10/2513:16 Height 5 ft 9 in 5 ft 9 in Weight: 248 lb 8 oz 248 lb BMI 36.6 36.6 BP 132/78 H 147/90 H Blood Pressure Location Lt brachial Rt brachial Position Sitting Sitting Respiration 18 18 Pulse 104 H 72 Pulse Source Monitor Monitor Temp 96.1 F L 97.2 F L Temp Source Temporal Temporal Pulse Oximetry (%) 94 100 Oxygen Delivery Method room air room air Intake Visit Reasons: UMBILICAL HERNIA & VASECTOMY Chief Complaint: umbilical hernia and vasectomy Is patient in pain?: No Allergies No Known Allergies Allergy (Verified 06/10/24 14:17) Medications ?Medication ?Instructions ?Recorded ?Confirmed ?Type omeprazole 20 mg capsule,delayed 20 mg PO DAILY 11/07/15 06/10/24 History release CPAP and supplies #1 ea 05/28/24 06/10/24 Rx sildenafil 50 mg tablet (Viagra) 50 mg PO QDAY PRN sexual activity 05/28/24 06/10/24 Rx #7 tabs PFSH Medical History (Updated 06/10/24 @ 14:[address] Bob Gan MD) Encounter for vasectomy Sleep apnea Asthma Chronic migraine Skin cancer Contact with and (suspected) exposure to other viral communicable diseases Acute pharyngitis, unspecified Surgical History S/P skin biopsy Family History Grandfather Parkinson disease Social History adopted: No household members: spouse and children number of children: 4 current occupational status: employed current occupation: [employer] pets and animals: Yes pets and animals: dog(s) Smoking Status: Never smoker alcohol intake: never substance use type: does not use caffeine: Yes (1) Type: coffee frequency: does not exercise seatbelt use: always do you feel safe at home: Yes HPI HPI HPI: Patient is a 44-year-old male here for 2 issues. He would like his umbilical hernia repaired and he would like a vasectomy. He reports that the hernia has been for 7 to 8 years. He says it does grow a little bit larger. He denies any other issues. His is on board with vasectomy. He would like these done at the same time. ROS General General: No weight change, appetite, fatigue, colon cancer, breast cancer or weakness HEENT HEENT: No difficulty swallowing, eye injury, eye surgery, swollen glands or hoarseness Endo Endocrine: No thyroid disease, diabetes mellitus, thyroid cancer, Hair loss, heat intolerance or cold intolerance Skin Skin: Yes changing moles; No rash Musc Musculoskeletal: No back problems, arthritis, rheumatoid arthritis, gout or joint pain Cardio Cardiovascular: No murmur, pacemaker, heart disease, atrial fibrillation, high blood pressure, heart attack, heart stent, palpitations, shortness of breat with exertion or chest pain Psych Psychiatric: No depression, anxiety or hearing voices Resp Respiratory: No shortness of breath, Yes sleep apnea, No cough, No COPD, No asthma, No emphysema and No wheezing Gastro Gastrointestinal: No abdominal pain, No nausea or vomiting, No diarrhea, No constipation, No blood in stool, Yes acid reflux, No hemorrhoids, No ulcers, No gallbladder problem and No black,tarry stools [place] Hematologic: No blood thinners, No blood disorders, No bleeding, No anemia and No blood clots Neuro Neurologic: No numbness, No tingling and No weakness Exam Const General: cooperative Orientation: alert and oriented x3 HENMT Head: normal to inspection Neck Neck: normal visual inspection and full ROM Chest Chest palpation & inspection: normal inspection of the chest Resp Effort & Inspection: normal respiratory effort Auscultation: clear to auscultation bilaterally Cardio Rate: regular rate Rhythm: regular rhythm GI Inspection: non-distended Palpation: soft, hernia umbilical and nontender Skin General: no rashes or lesions noted Neuro General: patient alert and patient oriented x3 Extrem General: full ROM Psych Appearance: grossly normal Mental Status: mental status grossly normal Assessment and Plan Assessment and Plan (1) Umbilical hernia: Status: Acute Qualifiers: Obstruction and gangrene presence: without obstruction or gangrene Qualified Code(s): K42.9 - Umbilical hernia without obstruction or gangrene Plan: Patient has a small umbilical hernia which may require mesh if it is over 1 cm. I discussed surgery with him in detail. I discussed the risks including but not limited to bleeding, infection, injury underlying organs, recurrence and need for mesh use. Patient understands all the risks and is willing to proceed. Bob Gan MD Pager: [facility] [address] [place] [address] [address] [place] [address] Office: (2) Encounter for vasectomy: Status: Acute Plan: I discussed bilateral partial vasectomy with the patient in detail. I discussed the procedure in detail as well as the risks of the procedure. I discussed the risks including but not limited to bleeding, infection, injury to spermatic cord, spermatocele. I discussed that this procedure is not perfect and there was a very small failure rate and I also discussed that this is a nonreversible procedure and that he would not be immediately sterile. I discussed that he would be considered sterile after two consecutive negative semen analysis tests. I recommended that the patient continue to use control until these tests are performed. The patient understands the risks and has has agreed to proceed with bilateral partial vasectomy in the office and will schedule appointment for procedure. The patient was provided with postoperative care instructions. I have examined the patient and the H&P has been reviewed. There are no clinical changes since date of exam.
[2024-06-18] MEDS: 0.9% Normal Saline (1000mL) 1,000 ML 15 ML IV (11:10)
[2024-06-18 11:12] LABS: Hematocrit 43.8 % (40-54); Hemoglobin 14.2 g/dL (13.0-16.5); Mean Corp Hgb Conc 32.4 g/dL (32-36); Mean Corpuscular Hgb 27.8 pg (27.0-32.0); Mean Corpuscular Volume 85.9 fL (80-94); Mean Platelet Vol. 9.6 fl (6.2-12.0); Platelet Count 284 K/mm3 (150-450); RBC Distribution Width CV 13.1 % (11.6-14.6); RBC Distribution Width SD 40.6 fl (35.1-43.9); White Blood Count 6.9 K/mm3 (4.4-11.0)
--- NOTE | 2024-06-18 11:20 | PCM.PRE.AN2 ---
ASA Classification* ASA Classification ASA Classification: 2 Assessment & Plan Anesthesia* Anesthesia Assessment Anesthesia Assessment: Discussed sedation and/or anesthesia options, risks, benefits, and alternatives with patient/parents/legal guardian/POA. Questions invited. The patient/parents/legal guardian/POA seems to understand and agrees to proceed with anesthesia plan. Reviewed the physical assessment, medical history, allergy history and patient home medications list prior to surgery/procedure/anesthetic and documented any changes. Performed airway and anesthesia risk assessments. Anesthesia Type Anesthesia Type: General History Source History Obtained from:: Patient and Chart Anesthesia Focused Assessment* Temperature: 97.8 F Pulse Rate: 76 Blood Pressure: 133/90 Respiratory Rate: 16 Pulse Ox: 100 Oxygen Delivery Method: Room Air Airway Assessment Mouth opens: >3 cm Mallampati Score: I Teeth Condition: Intact Neck Range of motion (ROM): Limited ROM (Somewhat decreased extension) Focused Labs Anesthesia Preop lab: CBC WBC 6.9 K/mm3 (4.4-11.0) 06/18/24 11:00 06/18/24 RBC 5.10 M/mm3 (4.6-6.2) 06/18/24 11:00 06/18/24 Hgb 14.2 g/dL (13.0-16.5) 06/18/24 11:00 06/18/24 Hct 43.8 % (40-54) 06/18/24 11:00 06/18/24 Plt Count 284 K/mm3 (150-450) 06/18/24 11:00 06/18/24 CHEMISTRY Potassium 3.9 mmol/L (3.5-5.1) 05/30/23 17:21 05/30/23 Sodium 135 mmol/L (136-145) L 05/30/23 17:21 05/30/23 Magnesium 2.2 mg/dL (1.6-2.6) 07/22/18 00:20 07/22/18 BUN 16 mg/dL (7-18) 05/30/23 17:21 05/30/23 Creatinine 1.06 mg/dL (0.70-1.30) 05/30/23 17:21 05/30/23 Glucose 96 mg/dL (74-106) 05/30/23 17:21 05/30/23 TSH 2.75 uIU/mL (0.358-3.74) 07/22/18 00:20 07/22/18 COAG Pre-Assessment Diagnosis/Proposed Procedure Planned Operative Procedure(s): OPEN UMBILICAL HERNIA WITH MESH AND VASECTOMY Anesthesia History 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 When Was Last Pacemaker Check QUESTION #4 FULL TEXT: You/Your Family Experience fever (hyperthermia) with Anesthesia Last Oral Intake Last Oral intake: Last Oral Intake NPO since 21:00 06/18/24 10:53 Meds taken in AM with sips of No 06/18/24 10:53 water? 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 Female No 06/13/24 15:12 HX of Motion Sickness No 06/13/24 15:12 HX of N/V After Surgery No 06/13/24 15:12 Non-Smoker Yes 06/13/24 15:12 Duration of Surgery greater No 06/13/24 15:12 than 60 minutes Number of Risk Factors 1 06/13/24 15:12 PONV Score Low Risk 06/13/24 15:12 Height & Weight Height & Weight: Anesthesia: Height & Weight Height 5 ft 9 in 06/18/24 10:53 Weight: 109 kg 06/18/24 10:53 Body Mass Index (BMI) 35.4 06/18/24 10:53 Respiratory Assessment Respiratory Assessment - beveling and edging machine operator: Respiratory Tract Infection Hx - beveling and edging machine operator Hx Respiratory Tract Infection No 06/13/24 15:12 STOP Sleep Apnea STOP Sleep Apnea - beveling and edging machine operator: STOP Sleep Apnea - beveling and edging machine operator Hx Hypertension No 06/13/24 15:12 Hx Sleep Apnea Yes 06/13/24 15:12 CPAP Yes 06/13/24 15:12 BIPAP No 06/13/24 15:12 Do you snore loudly (louder than talking or can be heard Do you often feel tired/ fatigued/ sleepy during daytime? Has anyone observed you stop breathing during sleep? STOP Results Positive 06/13/24 15:12 QUESTION #5 FULL TEXT : Do you snore loudly (louder than talking or can be heard through closed doors)? 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 Specify any problems Hx of Preganancy in last 3 N/A 06/13/24 15:12 Months Nurse Filling Out Transfusion DSCHRIBER 06/13/24 15:12 & Questions: Date: 06/13/24 06/13/24 15:12 Time: 15:13 06/13/24 15:12 Patient unable to answer at this time (ie. 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: /Reproductive Hx- beveling and edging machine operator Hx Now No 06/13/24 15:12 Gestational Age (in weeks): EDC: Hx Hx Para Hx Section SAB No 06/13/24 15:12 Active Medications Active Medications: Current Medications Generic Name Dose Route Start Last Admin Trade Name Freq PRN Reason Stop Dose Admin Cefotetan Disodium 2 gm/ 100 mls @ 200 mls/hr 06/18/24 12:00 Sodium Chloride IV 06/18/24 12:29 PREOP ONE Sodium Chloride 1,000 mls @ 15 mls/hr 06/18/24 10:40 06/18/24 11:10 IV 06/23/24 23:59 15 mls/hr .Q48H DELISA Administration Protocol PFSH Medical History Wears glasses Migraine headache Gastric reflux CPAP (continuous positive airway pressure) dependence Encounter for vasectomy Asthma Skin cancer Contact with and (suspected) exposure to other viral communicable diseases Acute pharyngitis, unspecified Home Medications ?Medication ?Instructions ?Recorded ?Last Taken ?Type omeprazole 20 mg capsule,delayed 20 mg PO DAILY 11/07/15 06/17/24 History release CPAP and supplies #1 ea 05/28/24 Unknown Rx sildenafil 50 mg tablet (Viagra) 50 mg PO QDAY PRN sexual activity 05/28/24 06/16/24 Rx #7 tabs Allergy/AdvReac Type Severity Reaction Status Date / Time No Known Allergies Allergy Verified 06/18/24 10:51 Family History Grandfather Parkinson disease Surgical History Hx of oral surgery S/P skin biopsy Social History adopted: No household members: spouse and children number of children: 4 current occupational status: employed current occupation: [employer] pets and animals: Yes pets and animals: dog(s) Smoking Status: Never smoker alcohol intake: never substance use type: does not use caffeine: Yes (1) Type: coffee frequency: does not exercise seatbelt use: always do you feel safe at home: Yes Review of Systems (Anesthesia) ROS Narrative System reviewed and no additional complaints, except as documented.
[2024-06-18] MEDS: Cefotetan 2 GM in 0.9% Normal Saline (100mL MB+) 100 ML IV (11:39)
--- NOTE | 2024-06-18 12:00 | VAS_PTH ---
PATIENT: BRYANT WHYTE LOC: [facility] – [place] U#:[id number] AGE/SX: 44/M ROOM: RE06/18/[address]: Dr. Bob Gan MD : 1980 BED: DIS: 06/18/2024 SPEC #: [id number] RECD: 06/18/24 13:34 STATUS: HARISH REViet #: [id number] ODALYS: 06/18/24 12:[address]: Bob Gan DEPT: SURGICAL PATHOLOGY RECD BY: Dirk Gardiner ENTERED: 06/19/24 08:29 SP TYPE: VAS OTHR DR: Dr. Nando Segovia, DO Tissues: A - Vas deferens, NOS B - Vas deferens, NOS Procedures: Surgery Specimen Level II HEADER OPERATION: Hernia, open umbilical repair with mesh and vasectomy PRE-OP DIAGNOSIS: Umbilical hernia, encounter for vasectomy TISSUE SUBMITTED: A- Left vas deferens, B- Right vas deferens MICROSCOPIC DIAGNOSIS A. Left vas deferens, partial vasectomy: Completely transected segment of vas deferens, no pathologic diagnosis. B. Right vas deferens, partial vasectomy: Completely transected segment of vas deferens, no pathologic diagnosis. SJ: 06/20/2024 MICROSCOPIC DESCRIPTION Slides are reviewed. GROSS DESCRIPTION A - Received is one container designated Left vas deferens. The specimen consists of a tubular segment of la soft tissue measuring 0.5 cm in length and 0.2 cm in diameter. The specimen is sectioned and submitted entirely in one cassette. B - Received is one container designated Right vas deferens. The specimen consists of a tubular segment of la soft tissue measuring 0.7 cm in length and 0.3 cm in diameter. The specimen is sectioned and submitted entirely in one cassette. / SJ: 06/19/2024 TC:4 CPT: 63578 x2
[2024-06-18] MEDS: Bupiv/Epi 0.25% 30 ML Vial (12:17)
--- NOTE | 2024-06-18 12:31 | OP.PCM_ITS ---
Operative Report (Standard) Operative Information Date of Procedure: 06/18/24 Pre-Operative Diagnosis: 1. Umbilical hernia 2. Request for sterilization via vasectomy Post-Operative Diagnosis: Same Surgery/Procedure Performed: 1. Umbilical hernia repair 2. Bilateral partial vasectomy for sterilization river transportation worker: Yes Wine Sales Representative: Sabina Wood Tasks completed by director of first impressions: Opening & closing and Retracting Type of Anesthesia: General/Regional RN Documented Start/Stop Times: Operation Date: 06/18/24 12:00 Case Time Into Pre-Op 06/18/24 10:37 Out of Pre-Op 06/18/24 11:30 Anesthesia Start 06/18/24 11:34 Into Room 06/18/24 11:34 Procedure Start 06/18/24 11:58 Procedure End 06/18/24 12:22 Anesthesia End 06/18/24 12:30 Out of Room 06/18/24 12:30 Procedure Start Time: 11:58 Procedure Stop Time: 12:22 Select all DRAINS/GRAFTS/IMPLANTS that apply: None Estimated Blood Loss: 2 Specimen collected: Yes Description of specimen(s) removed: Right and left vas deferens segments Description of surgery: Patient was brought back to the operating room and general anesthesia was induced. The abdomen was prepped and draped in usual sterile fashion. A curvilinear incision was marked above the umbilicus and then injected with local anesthetic. Incision was incised using a scalpel and then the umbilical stalk was from the hernia sac and the hernia sac was dissected free from surrounding contents. It was then reduced. The hernia appeared to be about half a centimeter in diameter. It was closed with two 0-Nurolon sutures. The area was irrigated and then the skin was closed with interrupted 3-0 Vicryl sutures. Steri-Strips and bandage were applied. Next the scrotum was prepped and draped on the right side first a small incision was made in the side of the scrotum and injected with local anesthetic. Next the vas was grasped and retracted out of the scrotum. It was from the vein that runs with the vas and then the vas segment was removed. Each end was clamped and crushed and then tied with 3-0 chromic suture and returned to the scrotum. The scrotum was then closed with 3-0 chromic suture. Next attention was paid to the left side and in the same fashion the scrotum was injected with local anesthetic and then incised. The left vas was brought through the incision and then clamped and the segment was removed. Each end was tied with 3-0 chromic suture and then the vas was allowed to return into the scrotum. The scrotum was then closed with a 3-0 chromic suture. Dressings were applied to the bilateral scrotum. Patient was then awoken and taken to PACU in stable condition and tolerated the procedure well. Surgical Findings: Small umbilical hernia less than 1 cm Complications Complications: No Admit VTE Documentation VTE Mechan Device Prophylaxis: SCD's
--- NOTE | 2024-06-18 12:33 | PCM.POST.ANE ---
Anesthesia: Postop Eval I Current Vital Signs Temperature: 97.2 F Pulse Rate: 73 Blood Pressure: 117/74 Respiratory Rate: 16 Pulse Ox: 93 Oxygen Delivery Method: Room Air Assessment Airway patent: Yes Spontaneous unlabored respirations: Yes Mental status: Awake and Calm nausea: No Vomiting: No Anesthesia Complication: No Fluid Hydration Crystalloid volume administer (ml): 500 Total IV fluid infused: 500 Progress Note Anesthesia document: Postop Eval 1 completed: Yes
--- NOTE | 2024-06-18 12:35 | DCINST_ITS ---
Discharge Instructions Procedure Hernia Diet Discharge Diet: Light diet - advance as tolerated Activity Discharge Activity: May Not Drive (for 2-3 days or while taking narcotic pain meds.) and May Shower (with the bandage in place 1-2 days after surgery.) Lifting Restrictions: 20 pounds for 2 weeks. Additional Activity Instructions:: Climbing stairs is fine, walking is encouraged. Sitting in bed may be uncomfortable. Sitting up using your lateral muscles (sitting up sideways) is usually more comfortable. Do not drive, work heavy equipment of sign legal documents for 24 hours. Pain medications may cause nausea, you should typically eat light foods as you take your pain medications. Pain medications may also cause constipation. If you have difficulty with this, discuss with your doctor. Ice the scrotum 20 minutes on 20 minutes off for pain Alternate ibuprofen and Tylenol for pain, oxycodone for breakthrough pain Please see postoperative instructions that were given already for vasectomy care Dressing / Incision Call your doctor if your incision/area has: Continuous Slow Oozing, Sudden Increased Bleeding, Increased Pain/ Swelling, Increased Redness and Foul Smelling Discharge Call your doctor if you observe: Fever of 101 or Higher Suture Line Care: Avoid Pulling/Pushing and Avoid Pinching/Bending Remove Dressing in: 2 days (Remove clear bandages in 2 days, remove Steri-Strips in 7 to 10 days.) Cleanse incision/area with: Soap & Water Follow Up Care Please Follow Up With: Bob Gan MD When: Please call to schedule 2 week follow up appointment. [phone] Test Results: Test results from this visit will be discussed in further detail at your follow- up appointment, if applicable. Discharge Plan Admission Attending Provider: Bob Gan Primary Care Provider: Nando Segovia Instructions Print Language: Bengali Discharge Orders/Prescriptions Prescriptions: New oxycodone 5 mg Tablet 5 - 10 mg PO Q4H PRN PRN (Reason: Pain Score 4-10) 5 Days Qty: 14 0RF No Action (DME) CPAP and supplies See Rx Instructions .Route .MEDSUPPLY Qty: 1 0RF Rx Instructions: As directed for Sleep apnea sildenafil [Viagra] 50 mg tablet 50 mg PO QDAY PRN (Reason: sexual activity) Qty: 7 3RF Rx Instructions: administer 30 minutes to 4 hours before activity omeprazole 20 MG capsule,delayed release(DR/EC) 20 mg PO DAILY Patient Comments: Referrals / Follow Up: Nando Segovia DO [Primary Care Provider] - Disposition Disposition (needs filled in before D/C Order can be placed): Home, Self Care
[2024-06-18] MEDS: Acetaminophen 325 MG Tablet 650 MG PO (13:19)
[2024-06-18] MEDS: oxyCODONE 5 MG Tablet PO (14:20)
--- NOTE | 2024-06-18 18:54 | POSTOPAN2_ITS ---
Anesthesia Postop Eval I Sum Postop Eval Completion status Anesthesia document: Postop Eval 1 completed: Yes Anesthesia Postop Eval I Summary Anesthesia Postop Eval I Summary: Anesthesia Postop Eval I: Assessment Summary Airway patent Yes 06/18/24 12:41 APPEALS [email or web address] Spontaneous unlabored Yes 06/18/24 12:41 APPEALS [email or web address] respirations Mental status Awake,Calm 06/18/24 12:41 APPEALS [email or web address].[email or web address] nausea No 06/18/24 12:41 APPEALS EXAMINER.[email or web address] Vomiting No 06/18/24 12:41 APPEALS [email or web address].[email or web address] Anesthesia Postop Eval I: Fluid Summary Crystalloid volume administer 500 06/18/24 12:41 APPEALS [email or web address].GDOTT (ml) Colloids volume administered ( ml) Blood Product volume administered (ml) Total IV fluid infused 500 06/18/24 12:41 APPEALS [email or web address].[email or web address] Anesthesia Postop Eval I: Summary Notes Anesthesia Complication No 06/18/24 12:41 APPEALS [email or web address].[email or web address] Anesthesia Complication Comment: Post-operative progress note Anesthesia: Postop Eval II Evaluation Mental status: Awake and Calm Pain Level: 1 nausea: No Vomiting: No Complications Anesthesia Complication: No
--- NOTE | 2024-06-18 18:54 | PCM.POSTANE2 ---
Anesthesia Postop Eval I Sum Postop Eval Completion status Anesthesia document: Postop Eval 1 completed: Yes Anesthesia Postop Eval I Summary Anesthesia Postop Eval I Summary: Anesthesia Postop Eval I: Assessment Summary Airway patent Yes 06/18/24 12:41 ELECTRON BEAM [email or web address].[email or web address] Spontaneous unlabored Yes 06/18/24 12:41 ELECTRON BEAM WELDER.[email or web address] respirations Mental status Awake,Calm 06/18/24 12:41 ELECTRON BEAM WELDER.[email or web address] nausea No 06/18/24 12:41 ELECTRON BEAM WELDER.GDOTT Vomiting No 06/18/24 12:41 ELECTRON BEAM WELDER.GDOTT Anesthesia Postop Eval I: Fluid Summary Crystalloid volume administer 500 06/18/24 12:41 ELECTRON BEAM WELDER.GDOTT (ml) Colloids volume administered ( ml) Blood Product volume administered (ml) Total IV fluid infused 500 06/18/24 12:41 ELECTRON BEAM WELDER.GDOTT Anesthesia Postop Eval I: Summary Notes Anesthesia Complication No 06/18/24 12:41 ELECTRON BEAM WELDER.GDOTT Anesthesia Complication Comment: Post-operative progress note Anesthesia: Postop Eval II Evaluation Mental status: Awake and Calm Pain Level: 1 nausea: No Vomiting: No Complications Anesthesia Complication: No
== END 2024-06-18 15:08 | disposition home or self-care (01) ==
LOC: SDC 10:35 → AC 10:42
PROVIDERS: Anesthesiology; PCP Family Medicine; Referring Provider Surgery; Visit Provider Surgery
PROC: (CPT 49591; principal; 2024-06-18 11:45)
DX: K42.9 Umbilical hernia without obstruction or gangrene (principal); Z30.2 Encounter for sterilization
CPT/HCPCS: 49591; 55250; 00750; 85027; 88302; 93005; J2405

== ENCOUNTER → 2024-07-26 | Outpatient (CLI) | payer OTHER, SELFPAY ==
[2024-07-26 15:00] LABS: Cytology, Semen SEE PATHOLOGY REPORT
== END | disposition home or self-care (01) ==
LOC: LAB 09:05
PROVIDERS: PCP Family Medicine; Referring Provider Surgery; Visit Provider Surgery
DX: Z30.2 Encounter for sterilization (principal)

== ENCOUNTER → 2024-07-27 | Outpatient (CLI) | payer OTHER, SELFPAY | END | disposition home or self-care (01) | LOC: LABSPEC 10:59 | PROVIDERS: PCP Family Medicine; Referring Provider Surgery; Visit Provider Surgery | DX: Z30.2 Encounter for sterilization (principal) ==

== ENCOUNTER → 2024-07-29 | Outpatient (CLI) | payer OTHER, SELFPAY ==
[2024-08-01 16:09] LABS: Cytology, Semen SEE PATHOLOGY REPORT
== END | disposition home or self-care (01) ==
PROVIDERS: PCP Family Medicine; Referring Provider Surgery; Visit Provider Surgery
DX: Z30.2 Encounter for sterilization (principal)

== ENCOUNTER 2024-08-06 15:13 | Outpatient (CLI) | payer OTHER, SELFPAY ==
[2024-08-07 16:29] LABS: Semen Analysis Post Vas ABSENT
== END 2024-08-06 23:59 | disposition home or self-care (01) ==
LOC: LABSPEC 15:14
PROVIDERS: PCP Family Medicine; Referring Provider Surgery; Visit Provider Surgery
DX: Z98.52 Vasectomy status (principal)
CPT/HCPCS: 89321

== ENCOUNTER → 2024-09-27 | Outpatient (CLI) | payer OTHER, SELFPAY ==
--- OUTSIDE RECORDS SUMMARY | 2024-09-27 06:44 | XMS RPT_ITS | CCD ---
Author Organization [facility] Care Team Providers Care Flight Follower Name Role Phone DR ELIANA RIVERA DO Primary Care Physician [phone] Eliana Rivera DO Primary Care Provider ELIANA RIVERA Primary Care Unavailable ELIANA RIVERA Primary Care Unavailable Dr. Eliana Rivera Primary Care Provider [phone] Dr. Eliana Rivera Referring Provider LISA Chavez Attending Provider Dr. Nando Segovia Primary Care Provider Dr. Nando Segovia Attending Provider Eliana Rivera DO Primary Care Provider [phone] Dr. Nando Segovia DO Primary Care Provider Dr. Nando Segovia DO Attending Provider Dr. Nando Segovia DO Referring Provider Dr. Bob Gan MD Attending Provider Dr. Bob Gan MD Referring Provider [phone] Dr. Bob Gan MD Other Provider [phone] Dr. Octavio Santoyo MD Attending Provider Aidee RICHMOND, Dr. Salomon Referring Provider Bob Gan Referring Unavailable Bob Gan Attending Unavailable Nando Segovia Primary Care Unavailable Nando Segovia Attending Unavailable Nando Segovia Referring Unavailable Nando Segovia Primary Care Unavailable Nando Segovia Primary Care Unavailable Braeden Mohan Attending Unavailable Bob Gan Attending Unavailable Calabretta, Bob Referring Unavailable Brown, Nando R Primary Care Unavailable Calabretta, Bob Attending Unavailable Calabretta, Bob Referring Unavailable Brown, Nando R Primary Care Unavailable Calabretta, Bob Attending Unavailable Brown, Nando R Referring Unavailable Brown, Nando R Primary Care Unavailable Calabretta, Bob Attending Unavailable Brown, Nando R Referring Unavailable Brown, Nando R Primary Care Unavailable Brown, Nando R Primary Care Unavailable Brown, Nando R Attending Unavailable Brown, Nando R Referring Unavailable Aime Hoskins Referring Unavailable Octavio Santoyo Attending Unavailable Brown, Nando R Primary Care Unavailable Calabretta, Bob Attending Unavailable Calabretta, Bob Referring Unavailable Calabretta, Bob Consulting Unavailable Brown, Nando R Primary Care Unavailable Brown, Nando R Primary Care Unavailable Brown, Nando R Attending Unavailable Brown, Nando R Referring Unavailable Calabretta, Bob Attending Unavailable Calabretta, Bob Referring Unavailable Brown, Nando R Primary Care Unavailable Calabretta, Bob Referring Unavailable Calabretta, Bob Attending Unavailable Brown, Nando R Primary Care Unavailable Allergies Allergy Classification Reported Allergen(s) Allergy Type Date of Onset Reaction(s) Facility (3 sources) environmental [Other] Propensity to adverse reactions [address] [facility] (1 source) OTHER; Translations: [OTHER] Propensity to adverse reactions (disorder) 6 [facility] Repository Medications Current Medications Medication Drug Class(es) Dates Sig (Normalized) Sig (Original) [id number] 200 actuat albuterol 0.09 mg/actuat metered dose inhaler (3 sources) beta2-Adrenergic Agonist Start: 09-21-2006 take 2 puff(s) by inhalation every four hours as needed for cough Albuterol Sulfate (PROVENTIL HFA) 90 mcg/Actuation INHALATION HFAA Indications: Allergic rhinitis, cause unspecified 2 puffs every four hours as needed for cough, wheezing , chest tightness or shortness of breath and 15-20 minutes pre-exercise. Use with spacer. 1 2 09/21/2006 Active Comment on above: 2 puffs every four h ours as needed for cough, wheezing , chest tightness or shortness of breath and 15-20 minutes pre-exercise. Use with spacer. Cetirizine (3 sources) Histamine-1 Receptor Antagonist CETIRIZINE HCL (ZYRTEC ORAL) Take by mouth. Active CETIRIZINE HCL ( ZYRTEC ORAL) Take by mouth. 0 Active Comment on above: Take by mouth. 12 hr cetirizine hydrochloride 5 mg / pseudoephedrine hydrochloride 120 mg extended release oral tablet (3 sources) alpha-Adrenergic Agonist, Histamine-1 Receptor Antagonist Start: 007 take 1 tablet by mouth twice daily as needed cetirizine-pseudoep hedrine (ZYRTEC-D) 5-120 mg ORAL Tb12 Indications: Allergic rhinitis, cause unspecified one tablet twice a day as needed 60 11 09/21/2006 Active Comment on above: one tablet twice a d ay as needed clotrimazole 10 mg/ml topical cream (3 sources) Azole Antifungal Start: 015 clotrimazole (ANTIFUNGAL, CLOTRIMAZOLE,) 1 % cream Indications: Tinea cruris Apply 1 application to affected area twice daily. 15 g 0 01/17/2015 Active Comment on above: Apply 1 application to affected area twice daily. CPAP and supplies (4 sources) Start: 025 CPAP and supplies Active 0 .Route .MEDSUPPLY May 28, 2024 1:00am As directed for Sleep apnea doxycycline monohydrate 100 mg oral tablet (1 source) Tetracycline-class Drug Start: 023 End: 023 take 1 tablet by mouth twice daily doxycycline monohydrate 100 mg tablet Take 1 tablet by mouth twice daily for 5 days. 10 tablet 0 08/27/2022 09/01/2022 Active Comment on above: Take 1 tablet by [facility] twice daily for 5 days. mometasone furoate 0.05 mg/actuat metered dose nasal spray (3 sources) Corticosteroid Start: 007 take 2 spray(s) nasal route once daily mometasone (NASONEX) 50 mcg/Actuation NASAL [place] Indications: Allergic rhinitis, cause unspecified 2 sprays in each nostril once a day 1 09/21/2006 Active Comment on above: 2 sprays in each nos tril once a day omeprazole 20 mg delayed release oral capsule (9 sources) Proton Pump Inhibitor Start: 016 take 1 capsule by mouth once daily Omeprazole 20 MG capsule,delayed release(DR/EC) Active 20 mg PO DAILY November 07, 2015 12:00am OMEPRAZOLE (PRIL OSEC ORAL) Take by mouth. Active OMEPRAZOLE (PRIL OSEC ORAL) Take by mouth. 0 Active Comment on above: Take by mouth. sildenafil 50 mg oral tablet (4 sources) Phosphodiesterase 5 Inhibitor Start: 05-28-2024 Sildenafil (Viagra) 50 mg tablet Active 50 mg PO daily as needed for sexual activity May 28, 2024 1:00am administer 30 minutes to 4 hours before activity Completed/Discontinued Medications Medication Drug Class(es) Dates Sig (Normalized) Sig (Original) acetaminophen 325 mg / HYDROcodone bitartrate 5 mg oral tablet (4 sources) Opioid Agonist Start: 4 End: 5 Hydrocodone-Acetamino phen 5-325 mg tablet Discontinued 1 {tbl} PO EVERY 6 HOURS NEEDED as needed for Pain 12 November 04, 2023 May 28, 2024 5:15pm methylPREDNISolone 4 mg oral tablet (5 sources) Corticosteroid Start: 2 End: 4 take 1 tablet by mouth once Methylprednisolone (Medrol (Tony)) 4 mg tablets,dose pack Discontinued 0 PO per package directions April 07, 2022 1:00am May 30, 2023 5:35pm PO PER PKG DIR montelukast 10 mg oral tablet (5 sources) Leukotriene Receptor Antagonist Start: 9 End: 4 take 1 tablet by mouth once daily Montelukast 10 MG tablet Discontinued 10 mg PO DAILY July 22, 2018 12:00am May 30, 2023 5:37pm oxyCODONE hydrochloride 5 mg oral tablet (4 sources) Opioid Agonist Start: 5 End: 5 take 5-10 mg by mouth every four hours as needed for pain Oxycodone 5 mg Tablet Discontinued 5 - 10 mg PO EVERY 4 HOURS NEEDED as needed for Pain Score 4-10 14 5 June 18, 2024 June 27, 2024 3:26pm Problems Active Problems Problem Classification Problem Date Documented Date Episodic/Chronic Abdominal hernia (13 sources) Umbilical hernia; Translations: [Umbilical hernia without obstruction or gangrene] Onset: 07-02-2024 06-27-2024 Episodic Abdominal pain (6 sources) Flank pain; Translations: [Unspecified abdominal pain] 05-30-2023 Episodic Comment on above: UA and labs ordered to evaluate this. Administrative/social admission (6 sources) Administrative reason for encounter; Translations: [Encounter for other administrative examinations] 03-24-2023 Episodic Contraceptive and procreative management (14 sources) Patient encounter status; Translations: [Encounter for sterilization] Onset: 08-01-2024 06-27-2024 Episodic Genitourinary symptoms and ill-defined conditions (9 sources) Increased frequency of urination; Translations: [Frequency of micturition] Onset: 06-19-2024 05-28-2024 Episodic Immunizations and screening for infectious disease (5 sources) Contact with and (suspected) exposure to other viral communicable diseases; Translations: [Contact with or suspected exposure to other viral communicable disease] 04-07-2022 Episodic Other aftercare (8 sources) History of repair of umbilical hernia; Translations: [Encounter for follow-up examination after completed treatment for conditions other than malignant neoplasm] 06-27-2024 Episodic Other male genital disorders (8 sources) Male erectile dysfunction, unspecified; Translations: [Erectile dysfunction] 05-28-2024 Chronic Other male genital disorders (4 sources) Pain of left testicle; Translations: [Left testicular pain] 11-12-2023 Episodic Other nutritional; endocrine; and metabolic disorders (9 sources) History of clinical finding in subject; Translations: [Personal history of other endocrine, nutritional and metabolic disease] 05-30-2023 Episodic Other nutritional; endocrine; and metabolic disorders (2 sources) Personal history of other endocrine, nutritional and metabolic disease; Translations: [Personal history of other endocrine, metabolic, and immunity disorders] Onset: 05-28-2024 05-30-2023 Episodic Other upper respiratory infections (1 source) Chronic sinusitis; Translations: [Chronic sinusitis, unspecified] Chronic Other upper respiratory infections (6 sources) Acute upper respiratory infection; Translations: [Acute upper respiratory infection, unspecified] 02-25-2023 Episodic Past or Other Problems Problem Classification Problem Date Documented Da te Episodic/Chronic Other male genital disorders (1 source) Left testicular pain; Translations: [Left testicular pain] Onset: 11-04-2023 Episodic Results Test Name Value Interpretation Reference Range Facility L200.0900on 08-07-2024 PATH REV Normal [facility] Comment on above: Result Comment: Yonis Sims MD 08/07/24 Performed By: #### L 200.0900 #### [facility] [address] [place], [address] SEMEN POST VAS ABSENT Normal [facility] Comment on above: Result Comment: CYTO SPIN PREPARATION USED FOR CONCENTRATION OF SPECIMEN PRIOR TO STAINING AND EXAMINATION Performed By: #### L 200.0900 #### [facility] [address] [place], [address] L350.1150on 08-06-2024 CYTOLOGY,SEMEN SEE PATHOLOGY REPORT Normal [facility] Comment on above: Result Comment: Spec imen submitted to Anatomical Pathology Department for testing. Slide has been reviewed by Dr. Cespedes. No spermatozoa identified. Ritu Cespedes MD 08/01/2024 AMENDED REPORT: The amended diagnosis was called to Dr. Gan's office ([place]) at 1:14pm on 08/05/2024. A second slide was prepared and examined revealing rare degenerated spermatozoa. Ritu Cespedes MD 08/05/2024 The amended diagnosis was called to Dr. Gan's office ([place]) at 1:14pm on 08/05/2024. A second slide was prepared and examined revealing rare degenerated spermatozoa. AMENDED REPORT 08/06/24 1040 CYTOLOGY,SEMEN previously reported as: SEE PATHOLOGY REPORT Specimen submitted to Anatomical Pathology Department for testing. Slide has been reviewed by Dr. Cespedes. No spermatozoa identified. Ritu Cespedes MD 08/01/2024 AMENDED REPORT: A second slide was prepared and examined revealing rare degenerated spermatozoa. Ritu Cespedes MD 08/05/2024 Performed By: #### L 350.1150 ####[facility] [id number] [place], [address] Pathologist review Sheldon (Unsp spec) [Interp]Ordered By: Bob Gan on 08-06-2024 Semen Pathologist Review See comment [facility] Comment on above: Absent.Bethany RICHMOND 08/07/24 Spermatozoa post vasectomy L M Ql (Debbie)Ordered By: Bob Gan on 08-06-2024 Post Vasectomy Sperm Presence ABSENT [facility] Comment on above: CYTOSPIN PREPARATION USED FOR CONCENTRATIONOF SPECIMEN PRIOR TO STAINING AND EXAMINATION Spermatozoa post vasectomy L M Ql (Debbie)Ordered By: Bob Gan on 07-29-2024 Vasectomy Semen SEE PATHOLOGY REPORT [facility] Comment on above: Specimen submitted t o Anatomical Pathology Department for testing. Slide has been reviewed by Dr. Cespedes.No spermatozoa identified.Ritu Cespedes MD 08/01/2024MENDED REPORT:The amended diagnosis was called to Dr. Gan's office ([place]) at 1:14pm on 08/05/2024. A second slide was prepared and examined revealing rare degenerated spermatozoa.Ritu Cespedes MD 08/05/2024Previous reported result: SEE PATHOLOGY REPORT Edited by: MARIO on 08/05/24:1609A second slide was prepared and examined revealing rare degenerated spermatozoa. Ritu Cespedes MD 08/05/2024 AMENDED REPORT 08/05/24 1609 CYTOLOGY,SEMEN previously reported as: SEE PATHOLOGY REPORT Specimen submitted to Anatomical Pathology Department for testing. Slide has been reviewed by Dr. Cespedes.No spermatozoa identified.Ritu Cespedes MD 08/01/2024mended report.Previous reported result: SEE PATHOLOGY REPORT Edited by: AMRIO on 08/06/24:1040The amended diagnosis was called to Dr. Gan's office ([place]) at 1:14pm on 08/05/2024. A second slide was prepared and examined revealing rare degenerated spermatozoa. AMENDED REPORT 08/06/24 1040 CYTOLOGY,SEMEN previously reported as: SEE PATHOLOGY REPORT Specimen submitted to Anatomical Pathology Department for testing. Slide has been reviewed by Dr. Cespedes.No spermatozoa identified.Ritu Cespedes MD 08/01/2024MENDED REPORT:A second slide was prepared and examined revealing rare degenerated spermatozoa.Ritu Cespedes MD 08/05/2024 L350.1150on 07-26-2024 CYTOLOGY,SEMEN SEE PATHOLOGY REPORT Normal [facility] Comment on above: Order Comment: Reaso n for Exam: sterilization Result Comment: Spec imen submitted to Anatomical Pathology Department for testing. Slide has been reviewed by Dr. Cespedes. No spermatozoa identified. Ritu Cespedes MD 07/26/2024 AMENDED REPORT 07/26/24 1459 CYTOLOGY,SEMEN previously reported as: SEE PATHOLOGY REPORT Specimen submitted to Anatomical Pathology Department for testing. Performed By: #### L 350.1150 ####[facility] [id number] [place], [place], [address] Spermatozoa post vasectomy L M Ql (Debbie)Ordered By: Bob Gan on 07-26-2024 Vasectomy Semen SEE PATHOLOGY REPORT [facility] Comment on above: Specimen submitted t o Anatomical Pathology Department for testing. Slide has been reviewed by Dr. Cespedes.No spermatozoa identified.Ritu Cespedes MD 07/26/2024Previous reported result: SEE PATHOLOGY REPORT Edited by: MARIO on 07/26/24:1459 AMENDED REPORT 07/26/24 1459 CYTOLOGY,SEMEN previously reported as: SEE PATHOLOGY REPORT Specimen submitted to Anatomical Pathology Department for testing. Surgery Visit Reporton 06-27 Surgery Visit Report [facility] [address] [place], [place] [address] OFFICE VISIT Date of Service: 06/27/24 MR#: [id number] Acct: [id number] Name: JAZIEL MARKS Rep #: [id number] : 1980 Provider: Dr. Bob zimmerman MD Age/Sex: 44/M Location: [facility] Status: Signed Intake Vital Signs 06/18/24 10:53 Height 5 ft 9 in Intake Visit Reasons: HERNIA / VASECTOMY 06-18 Chief Complaint: umbilical hernia and vasectomy Allergies No Known Allergies Allergy (Verified 06/18/24 10:51) Medications ???Medication ???Instructions ???Recorded ???Confirmed ???Type omeprazole 20 mg capsule,delayed 20 mg PO DAILY 11/07/15 06/18/24 H istory release CPAP and supplies #1 ea 05/28/24 06/10/24 Rx sildenafil 50 mg tablet (Viagra) 50 mg PO QDAY PRN sexual activity 05/28/24 06/18/24 Rx #7 tabs Subjective Details: Patient is doing well with no complaints Objective Details: Incisions are healing well with no signs of ecchymosis or erythema Coding Level of Care Code Global Post Op Diagnoses S/P vasectomy Z98.52 S/P umbilical hernia repair, follow-up exam Z09 [facility] Medical History (Updated 06/27/24 @ 14:27 by Kathi Singh LPN) Encounter for sterilization Wears glasses Migraine headache Gastric reflux CPAP (continuous positive airway pressure) dependence Encounter for vasectomy Asthma Skin cancer Contact with and (suspected) exposure to other viral communicable diseases Acute pharyngitis, unspecified Surgical History (Updated 06/27/24 @ 14:27 by Kathi Singh LPN) S/P vasectomy S/P umbilical hernia repair, follow-up exam Hx of oral surgery S/P skin biopsy Family History Grandfather Parkinson disease Social History adopted: No household members: spouse and children number of children: 4 current occupational status: employed current occupation: [employer] pets and animals: Yes pets and animals: dog(s) Smoking Status: Never smoker alcohol intake: never substance use type: does not use caffeine: Yes (1) Type: coffee frequency: does not exercise seatbelt use: always do you feel safe at home: Yes Assessment and Plan (No Qualifiers) Assessment and Plan (1) S/P vasectomy: Status: Acute Plan: Patient was given postoperative semen analysis cups for testing. He was given postoperative instructions that he is not sterile yet. He will submit semen for analysis in 1 month. (2) S/P umbilical hernia repair, follow-up exam: Status: Acute Plan: Umbilical hernia appears to be healing well. He may return to full activity in 2 weeks. Bob aGn MD Pager: [facility] [address] [place] [address], [address] [place] [address] Office: 06/27/24 8534 Date Bob Stevens Signature: Date (if applicable) CC: [facility] 12 Lead EKGon 06-18-2024 12 Lead EKG [facility] [address] [place] [address] 12 Lead EKG 06/18/24 1102 MR#: [id number] Acct: [id number] Name: JAZIEL MARKS Rep #: [id number] : 1980 44 From: Octavio Santoyo MD Attending Dr: Dr. Bob Gan MD Status: [facility] Ordering Dr: Aime Hoskins MD Date: 06/18/24 Location[place] [facility] Sex: M C Admitted: Test Reason : PREOP Blood Pressure : */* mmHG Vent. Rate : 67 BPM Atrial Rate : 67 BPM P-R Int : 178 ms QRS Dur : 94 ms QT Int : 386 ms P-R-T Axes : 16 61 42 degrees QTcB Int : 407 ms Normal sinus rhythm Normal ECG When compared with ECG of 22-Jul-2018 00:27, No significant change was found Confirmed by Octavio Santoyo ([id number]), department editor GILBERT HEBERT ([id number]) on 06/20/2024 9:26:16 AM Referred By: Bob Gan Confirmed By: Octavio Santoyo 06/20/24 0926 Date Octavio Santoyo MD CC: Dr. Aime Hoskins MD; Dr. Bob Gan MD; Dr. Nando Segovia, DO Signed [facility] Automated blood erythrocyte countOrdered By: Aime Hoskins on 06-18-2024 RBC (Bld) [#/Vol] 5.10 10*6/uL Normal 4.6-6.2 [facility] Comment on above: Performed By: #### L 100.0500 #### [facility] [address] [place], [address] Automated blood hematocrit ( percentage)Ordered By: Aime Georgekobi on 06-18-2024 Hematocrit (Bld) [Volume fraction] 43.8 % Normal 40-54 [facility] Comment on above: Performed By: #### L 100.0500 #### [facility] [address] [place], [address] CBC-Complete Blood Cnt No Di ffon 06-18-2024 RDW SD 40.6 fl Normal 35.1-43.9 [facility] Comment on above: Performed By: #### L 100.0500 #### [facility] [address] [place], [address] Discharge Instructionon 05-26 Discharge Instruction [facility] Medical Records Department [address] [place] [address] Instructions for Home/Discharge Instructions 06/18/24 1235 MR#: [id number] Acct: [id number] Name: JAZIEL MARKS Rep #: [id number] : 1980 44 From: Bob Gan MD PCP: Dr. Nando Segovia, DO Status:REG [facility] Discharge Instructions Procedure Hernia Diet Discharge Diet: Light diet - advance as tolerated Activity Discharge Activity: May Not Drive (for 2-3 days or while taking narcotic pain meds.) and May Shower (with the bandage in place 1-2 days after surgery.) Lifting Restrictions: 20 pounds for 2 weeks. Additional Activity Instructions:: Climbing stairs is fine, walking is encouraged. Sitting in bed may be uncomfortable. Sitting up using your lateral muscles (sitting up sideways) is usually more comfortable. Do not drive, work heavy equipment of sign legal documents for 24 hours. Pain medications may cause nausea, you should typically eat light foods as you take your pain medications. Pain medications may also cause constipation. If you have difficulty with this, discuss with your doctor. Ice the scrotum 20 minutes on 20 minutes off for pain Alternate ibuprofen and Tylenol for pain, oxycodone for breakthrough pain Please see postoperative instructions that were given already for vasectomy care Dressing / Incision Call your doctor if your incision/area has: Continuous Slow Oozing, Sudden Increased Bleeding, Increased Pain/ Swelling, Increased Redness and Foul Smelling Discharge Call your doctor if you observe: Fever of 101 or Higher Suture Line Care: Avoid Pulling/Pushing and Avoid Pinching/Bending Remove Dressing in: 2 days (Remove clear bandages in 2 days, remove Steri-Strips in 7 to 10 days.) Cleanse incision/area with: Soap Water Follow Up Care Please Follow Up With: Bob Gan MD When: Please call to schedule 2 week follow up appointment. [phone] Test Results: Test results from this visit will be discussed in further detail at your follow-up appointment, if applicable. Discharge Plan Admission Attending Provider: Bob Gan Primary Care Provider: Nando Segovia Instructions Print Language: Malagasy Discharge Orders/Prescriptions Prescriptions: New oxycodone 5 mg Tablet 5 - 10 mg PO Q4H PRN PRN (Reason: Pain Score 4-10) 5 Days Qty: 14 0RF No Action (DME) CPAP and supplies See Rx Instructions .Route .MEDSUPPLY Qty: 1 0RF Rx Instructions: As directed for Sleep apnea sildenafil [Viagra] 50 mg tablet 50 mg PO QDAY PRN (Reason: sexual activity) Qty: 7 3RF Rx Instructions: administer 30 minutes to 4 hours before activity omeprazole 20 MG capsule,delayed release(DR/EC) 20 mg PO DAILY Patient Comments: Referrals / Follow Up: Nando Segovia DO [Primary Care Provider] - Disposition Disposition (needs filled in before D/C Order can be placed): Home, Self Care 06/18/24 9157 Bob Gan MD CC: Dr. Nando Segovia DO Signed Normal [facility] Erythrocyte distribution wid th (RBC) [Ratio]Ordered By: Aime Hoskins on 06-18-2024 Erythrocyte distribution width (RBC) [Entitic vol] 40.6 fL 35.1-43.9 [facility] Erythrocyte distribution wid th ratioOrdered By: Aime Hoskins on 06-18-2024 Erythrocyte distribution width (RBC) [Ratio] 13.1 % Normal 11.6-14.6 [facility] Comment on above: Performed By: #### L 100.0500 #### [facility] [address] [place], [address] Hemoglobin measurementOrdere d By: Aime Hoskins on 06-18-2024 Hemoglobin (Bld) [Mass/Vol] 14.2 g/dL Normal 13.0-16.5 [facility] Comment on above: Performed By: #### L 100.0500 #### [facility] [address] [place], [address] MCV (mean corpuscular volume ) determinationOrdered By: Aime Hoskins on 06-18-2024 MCV (RBC) [Entitic vol] 85.9 fL Normal 80-94 [facility] Comment on above: Performed By: #### L 100.0500 #### [facility] [address] [place], [address] MR/POSTOP.ANEon 06-18-2024 MR/POSTOP.ANE [facility] Medical Records Department [address] [place] [address] Anesthesia Postop Eval I 06/18/24 1233 MR#: [id number] Acct: [id number] Name: JZAIEL MARKS TEZ Rep #: [id number] : 1980 44 From: Zahida Pink PCP: Dr. Nando Segovia, DO Status:REG SDC Y Race: C Location: [place] [address] Anesthesia: Postop Eval I Current Vital Signs Temperature: 97.2 F Pulse Rate: 73 Blood Pressure: 117/74 Respiratory Rate: 16 Pulse Ox: 93 Oxygen Delivery Method: Room Air Assessment Airway patent: Yes Spontaneous unlabored respirations: Yes Mental status: Awake and Calm nausea: No Vomiting: No Anesthesia Complication: No Fluid Hydration Crystalloid volume administer (ml): 500 Total IV fluid infused: 500 Progress Note Anesthesia document: Postop Eval 1 completed: Yes 06/18/24 1241 Date Zahida Damonigner Signature: Date CC: Signed Normal [facility] MR/[id number] 06-18-2024 MR/POSTOPAN2 [facility] Medical Records Department [address] [place] [address] Anesthesia Postop Eval II 06/18/24 1854 MR#: [id number] Acct: [id number] Name: JAZIEL MARKS Rep #: [id number] : 1980 44 From: Aime Hoskins MD PCP: Dr. Nando Segovia, DO Status:[facility] Y Race: C [place] [facility] [place]esthesia Postop Eval I Sum Postop Eval Completion status Anesthesia document: Postop Eval 1 completed: Yes Anesthesia Postop Eval I Summary Anesthesia Postop Eval I Summary: Anesthesia Postop Eval I: Assessment Summary Airway patent Yes 06/18/24 12:41 BEN DAY ARTIST.GDOTT Spontaneous unlabored Yes 06/18/24 12:41 BEN DAY ARTIST.GDOTT respirations Mental status Awake,Calm 06/18/24 12:41 BEN DAY ARTIST.GDOTT nausea No 06/18/24 12:41 BEN DAY ARTIST.GDOTT Vomiting No 06/18/24 12:41 BEN DAY ARTIST.GDOTT Anesthesia Postop Eval I: Fluid Summary Crystalloid volume administer 500 06/18/24 12:41 BEN DAY ARTIST.GDOTT (ml) Colloids volume administered ( ml) Blood Product volume administered (ml) Total IV fluid infused 500 06/18/24 12:41 BEN DAY ARTIST.GDOTT Anesthesia Postop Eval I: Summary Notes Anesthesia Complication No 06/18/24 12:41 BEN DAY ARTIST.GDOTT Anesthesia Complication Comment: Post-operative progress note Anesthesia: Postop Eval II Evaluation Mental status: Awake and Calm Pain Level: 1 nausea: No Vomiting: No Complications Anesthesia Complication: No 06/18/24 1854 Date Aime Stevens Signature: Date CC: Signed Normal [facility] Mean corpuscular hemoglobin (MCH) determinationOrdered By: Aime Hoskins on 06-18-2024 MCH (RBC) [Entitic mass] 27.8 pg Normal 27.0-32.0 [facility] Comment on above: Performed By: #### L 100.0500 #### [facility] Laboratory [address] [place], [place], [id number] Mean corpuscular hemoglobin concentration (MCHC) determinationOrdered By: Aime Hoskins on 06-18-2024 MCHC (RBC) [Mass/Vol] 32.4 g/dL Normal 32-36 [facility] Comment on above: Performed By: #### L 100.0500 #### [facility] [address] [place], [address] Mean platelet volume determi nationOrdered By: Aime Hoskins on 06-18-2024 Platelet mean volume (Bld) [Entitic vol] 9.6 fL Normal 6.2-12.0 [facility] Comment on above: Performed By: #### L 100.0500 #### [facility] [address] [place], [address] Operative Reporton Operative Report [facility] Medical Records Department [address] [place] [address] Operative Report 06/18/24 1231 MR#: [id number] Acct: [id number] Name: JAZIEL MARKS Rep #: [id number] : 1980 44 From: Bob Gan MD PCP: Dr. Nando Segovia, DO Status:REG [facility] Location: [address] Operative Report (Standard) Operative Information Date of Procedure: 06/18/24 Pre-Operative Diagnosis: 1. Umbilical hernia 2. Request for sterilization via vasectomy Post-Operative Diagnosis: Same Surgery/Procedure Performed: 1. Umbilical hernia repair 2. Bilateral partial vasectomy for sterilization speeder frame tender: Yes Jewelry Sales Coordinator: Sabina Wood Tasks completed by cardiology physician assistant: Opening closing and Retracting Type of Anesthesia: General/Regional RN Documented Start/Stop Times: Operation Date: 06/18/24 12:00 Case Time Into Pre-Op 06/18/24 10:37 Out of Pre-Op 06/18/24 11:30 Anesthesia Start 06/18/24 11:34 Into Room 06/18/24 11:34 Procedure Start 06/18/24 11:58 Procedure End 06/18/24 12:22 Anesthesia End 06/18/24 12:30 Out of Room 06/18/24 12:30 Procedure Start Time: 11:58 Procedure Stop Time: 12:22 Select all DRAINS/GRAFTS/IMPLANTS that apply: None Estimated Blood Loss: 2 Specimen collected: Yes Description of specimen(s) removed: Right and left vas deferens segments Description of surgery: Patient was brought back to the operating room and general anesthesia was induced. The abdomen was prepped and draped in usual sterile fashion. A curvilinear incision was marked above the umbilicus and then injected with local anesthetic. Incision was incised using a scalpel and then the umbilical stalk was from the hernia sac and the hernia sac was dissected free from surrounding contents. It was then reduced. The hernia appeared to be about half a centimeter in diameter. It was closed with two 0-Nurolon sutures. The area was irrigated and then the skin was closed with interrupted 3-0 Vicryl sutures. Steri-Strips and bandage were applied. Next the scrotum was prepped and draped on the right side first a small incision was made in the side of the scrotum and injected with local anesthetic. Next the vas was grasped and retracted out of the scrotum. It was from the vein that runs with the vas and then the vas segment was removed. Each end was clamped and crushed and then tied with 3-0 chromic suture and returned to the scrotum. The scrotum was then closed with 3-0 chromic suture. Next attention was paid to the left side and in the same fashion the scrotum was injected with local anesthetic and then incised. The left vas was brought through the incision and then clamped and the segment was removed. Each end was tied with 3-0 chromic suture and then the vas was allowed to return into the scrotum. The scrotum was then closed with a 3-0 chromic suture. Dressings were applied to the bilateral scrotum. Patient was then awoken and taken to PACU in stable condition and tolerated the procedure well. Surgical Findings: Small umbilical hernia less than 1 cm Complications Complications: No Admit VTE Documentation VTE Mechan Device Prophylaxis: SCD's 06/18/24 1235 Cosigner Signature (if applicable): CC: Dr. Bob Gan MD; Dr. Nando Segovia DO Signed Normal [facility] Platelet countOrdered By: Leann on 06-18-2024 Platelets (Bld) [#/Vol] 284 10*3/uL Normal 150-450 [facility] Comment on above: Performed By: #### L 100.0500 #### [facility] Laboratory [facility] [address] [place], [place], [id number] Surgery Specimen Level IIon 06-18-2024 Surgery Specimen Level II ---- Patient Age/Sex Location Account Attending Physician ---- JAZIEL MARKS 44/M [facility] [id number]. Bob Gan MD ---- Specimen: [id number] Received: 06/18/24 Status: HARISH Calles Num: [id number] Spec Type: VAS Subm Dr: Dr. Bob Gan MD HEADER OPERATION: Hernia, open umbilical repair with mesh and vasectomy PRE-OP DIAGNOSIS: Umbilical hernia, encounter for vasectomy TISSUE SUBMITTED: A- Left vas deferens, B- Right vas deferens ---- MICROSCOPIC DIAGNOSIS A. Left vas deferens, partial vasectomy: Completely transected segment of vas deferens, no pathologic diagnosis. B. Right vas deferens, partial vasectomy: Completely transected segment of vas deferens, no pathologic diagnosis. SJ: 06/20/2024 MICROSCOPIC DESCRIPTION Slides are reviewed. GROSS DESCRIPTION A - Received is one container designated Left vas deferens. The specimen consists of a tubular segment of la soft tissue measuring 0.5 cm in length and 0.2 cm in diameter. The specimen is sectioned and submitted entirely in one cassette. B - Received is one container designated Right vas deferens. The specimen consists of a tubular segment of la soft tissue measuring 0.7 cm in length and 0.3 cm in diameter. The specimen is sectioned and submitted entirely in one cassette. / SJ: 06/19/2024 TC:4 CPT: 99088 x2 ---- Patient Age/Sex Location Account Attending Physician ---- JAZIEL MARKS 44/M [facility] [id number] Dr. Bob Gan MD ---- Signed (signature on file) Dr. Sam Salazar MD 06/20/24 1355 ---- Normal [facility] Comment on above: Performed By: #### P JAMES ####[facility] [address] [place], [place], [id number] White blood cell (WBC) count Ordered By: Aime Hoskins on 06-18-2024 WBC (Bld) [#/Vol] 6.9 10*3/uL Normal 4.4-11.0 [facility] Comment on above: Performed By: #### L 100.0500 #### [facility] [address] [place], [address] Surgery Visit Reporton 06-10 Surgery Visit Report [facility] [address] [place] [address] OFFICE VISIT Date of Service: 06/10/24 MR#: [id number] Acct: [id number] Name: JAZIEL MARKS Rep #: [id number] : 1980 Provider: Dr. Bob zimmerman MD Age/Sex: 44/M Location: [facility] Status: Signed Intake Vital Signs 05/28/24 16:10 06/10/24 14:16 Height 5 ft 9 in 5 ft 9 in Weight: 248 lb 8 oz 248 lb BMI 36.6 36.6 BP 132/78 H 147/90 H Blood Pressure Location Lt brachial Rt brachial Position Sitting Sitting Respiration 18 18 Pulse 104 H 72 Pulse Source Monitor Monitor Temp 96.1 F L 97.2 F L Temp Source Temporal Temporal Pulse Oximetry (%) 94 100 Oxygen Delivery Method room air room air Intake Visit Reasons: UMBILICAL HERNIA VASECTOMY Chief Complaint: umbilical hernia and vasectomy Is patient in pain?: No Allergies No Known Allergies Allergy (Verified 06/10/24 14:17) Medications ???Medication ???Instructions ???Recorded ???Confirmed ???Type omeprazole 20 mg capsule,delayed 20 mg PO DAILY 11/07/15 06/10/24 H istory release CPAP and supplies #1 ea 05/28/24 06/10/24 Rx sildenafil 50 mg tablet (Viagra) 50 mg PO QDAY PRN sexual activity 05/28/24 06/10/24 Rx #7 tabs PFSH Medical History (Updated 06/10/24 @ 14:[address] Bob Gan MD) Encounter for vasectomy Sleep apnea Asthma Chronic migraine Skin cancer Contact with and (suspected) exposure to other viral communicable diseases Acute pharyngitis, unspecified Surgical History S/P skin biopsy Family History Grandfather Parkinson disease Social History adopted: No household members: spouse and children number of children: 4 current occupational status: employed current occupation: [employer] pets and animals: Yes pets and animals: dog(s) Smoking Status: Never smoker alcohol intake: never substance use type: does not use caffeine: Yes (1) Type: coffee frequency: does not exercise seatbelt use: always do you feel safe at home: Yes HPI HPI HPI: Patient is a 44-year-old male here for 2 issues. He would like his umbilical hernia repaired and he would like a vasectomy. He reports that the hernia has been for 7 to 8 years. He says it does grow a little bit larger. He denies any other issues. His is on board with vasectomy. He would like these done at the same time. ROS General General: No weight change, appetite, fatigue, colon cancer, breast cancer or weakness HEENT HEENT: No difficulty swallowing, eye injury, eye surgery, swollen glands or hoarseness Endo Endocrine: No thyroid disease, diabetes mellitus, thyroid cancer, Hair loss, heat intolerance or cold intolerance Skin Skin: Yes changing moles; No rash Musc Musculoskeletal: No back problems, arthritis, rheumatoid arthritis, gout or joint pain Cardio Cardiovascular: No murmur, pacemaker, heart disease, atrial fibrillation, high blood pressure, heart attack, heart stent, palpitations, shortness of breat with exertion or chest pain Psych Psychiatric: No depression, anxiety or hearing voices Resp Respiratory: No shortness of breath, Yes sleep apnea, No cough, No COPD, No asthma, No emphysema and No wheezing Gastro Gastrointestinal: No abdominal pain, No nausea or vomiting, No diarrhea, No constipation, No blood in stool, Yes acid reflux, No hemorrhoids, No ulcers, No gallbladder problem and No black,tarry stools [place] Hematologic: No blood thinners, No blood disorders, No bleeding, No anemia and No blood clots Neuro Neurologic: No numbness, No tingling and No weakness Exam Const General: cooperative Orientation: alert and oriented x3 HENMT Head: normal to inspection Neck Neck: normal visual inspection and full ROM Chest Chest palpation inspection: normal inspection of the chest Resp Effort Inspection: normal respiratory effort Auscultation: clear to auscultation bilaterally Cardio Rate: regular rate Rhythm: regular rhythm GI Inspection: non-distended Palpation: soft, hernia umbilical and nontender Skin General: no rashes or lesions noted Neuro General: patient alert and patient oriented x3 Extrem General: full ROM Psych Appearance: grossly normal Mental Status: mental status grossly normal Assessment and Plan Assessment and Plan (1) Umbilical hernia: Status: Acute Qualifiers: Obstruction and gangrene presence: without obstruction or gangrene Qualified Code(s): K42.9 - Umbilical hernia without obstruction or gangrene Plan: Patient has a small umbilical hernia which may require mesh if it is over 1 cm. I discussed (more content not included)... Normal [facility] Diagnostic total prostate sp ecific antigen (PSA) measurementOrdered By: Nando Segovia on 06-04-2024 Prostate Specific Antigen Total 0.86 ng/mL 0.0-4.0 [facility] Comment on above: This test was perfor med using the TPSA assay method for [employer] chemistry system. Values obtained with differentassay methods cannot be used interchangably.When changing PSA assays in the course of monitoring apatient, additional sequential testing should be carriedout to confirm baseline values. Hemoglobin A1con 06-04-2024 HbA1c (Bld) [Mass fraction] 6.2 % High 3.8-5.6 [facility] Comment on above: Result Comment: Norm al < 5.7 % Prediabetic 5.7 - 6.4 % Diabetic >or= 6.5 % Please note range changes. Performed By: #### L 501.2000, L501.9930 #### [facility] [address] [place], [address] Hemoglobin A1c percentageOrd ered By: Nando Segovia on 06-04-2024 HbA1c (Bld) [Mass fraction] 6.2 % High 3.8-5.6 [facility] Comment on above: Normal < 5.7 % Predi abetic 5.7 - 6.4 % Diabetic >or= 6.5 % Please note range changes. PSA,Total- Diagn[employer]icon - PSA, DIAGNOSTIC 0.86 ng/mL Normal 0.0-4.0 [facility] Comment on above: Result Comment: This test was performed using the TPSA assay method for the [employer] chemistry system. Values obtained with different assay methods cannot be used interchangably. When changing PSA assays in the course of monitoring a patient, additional sequential testing should be carried out to confirm baseline values. Performed By: #### L 501.9940, L501.9985 #### [facility] [address] [place], [address] Internal Medicine Office Vis iton 05-28-2024 Internal Medicine Office Visit [facility] [address] [place] [address] [place] [address] OFFICE VISIT Date of Service: 05/28/24 MR#: [id number] Acct: [id number] Name: JAZIEL MARKS Rep #: [id number] : 1980 Provider: Dr. Nando bonilla, DO Age/Sex: 44/M Location[place] [facility] Status: Signed Intake Vital Signs 11/04/23 10:05 05/28/24 16:10 Height 5 ft 9 in 5 ft 9 in Weight: 248 lb 8 oz BMI 36.6 BP 132/78 H Blood Pressure Location Lt brachial Position Sitting Respiration 18 Pulse 104 H Pulse Source Monitor Temp 96.1 F L Temp Source Temporal Pulse Oximetry (%) 94 Oxygen Delivery Method room air Intake Visit Reasons: 1 Y FU Chief Complaint: yearly Conductor/Engineer Required: No Accompanied by: Self Is patient in pain?: No Allergies No Known Allergies Allergy (Verified 05/28/24 16:06) Medications ???Medication ???Instructions ???Recorded ???Confirmed ???Type omeprazole 20 mg capsule,delayed 20 mg PO DAILY 11/07/15 05/28/24 H istory release CPAP and supplies #1 ea 05/28/24 05/28/24 Rx sildenafil 50 mg tablet (Viagra) 50 mg PO QDAY PRN sexual activity 05/28/24 05/28/24 Rx #7 tabs Have you fallen in the past year?: No Nurse's Note: discuss ordering sleep apnea machine supplies possible umbilical hernia had for 6 years no pain or issues [facility] Medical History Sleep apnea Asthma Chronic migraine Skin cancer Contact with and (suspected) exposure to other viral communicable diseases Acute pharyngitis, unspecified Surgical History S/P skin biopsy Family History Grandfather Parkinson disease Social History adopted: No household members: spouse and children number of children: 4 current occupational status: employed current occupation: [employer] pets and animals: Yes pets and animals: dog(s) Smoking Status: Never smoker alcohol intake: never substance use type: does not use caffeine: Yes (1) Type: coffee frequency: does not exercise seatbelt use: always do you feel safe at home: Yes HPI HPI Chief Complaint: yearly Details: JAZIEL MARKS, is a 44 M who presents to the office today for a recheck on his mildly elevated blood sugars. This patient had a hemoglobin A1c of 6.0 when it was done in the summer putting him in the prediabetic range. He is also having some trouble with erectile dysfunction and he wants a vasectomy. He also has a small umbilical hernia that he would like repaired. ROS Const Constitutional: No body ache, excessive sweating, fatigue, fever(s), frequent falls, headache(s), snoring, weakness, weight change, sleep problems or change in appetite Eyes Eyes: No blurry vision, change in vision, eye pain or Light sensitivity ENT ENT: No abnormal hearing, ear or mastoid pain, tinnitus, nasal congestion, headache(s), neck pain or sore throat Resp Respiratory: No cough, shortness of breath, snoring or wheezing Cardio Cardiology: No chest pain at rest, chest pain with exertion, excessive sweating, shortness of breath, dyspnea on exertion, lightheadedness, orthopnea or palpitations Gastro GI: No abdominal pain, change in bowel habits, constipation, cramping, diarrhea, nausea/dyspepsia or vomiting Genitourinary Male: No burning urination, painful urination, urinary incontinence, urinary frequency or blood in urine Musc Musculoskeletal: No abnormal gait, joint pain, back pain, limited range of motion, neck pain, numbness, stiffness, tingling or Arthritis Skin Skin: No dry skin, redness, lesions, itchy eyes, rash or wounds Neuro Neurology: No abnormal gait, abnormal hearing, abnormal speech, dizziness, weakness, frequent falls, headache(s), memory loss, numbness or tingling Psych Psychiatric: No anxiety, No change in appetite, No depression, No memory loss and No Thoughts of harming yourself/Others Endo Endocrine: No cold intolerance, excessive sweating, fatigue, flushing, heat intolerance, increased thirst/drinking, increased hunger or weight change Aller/Imm Allergy/Immunologic: No itchy eyes, seasonal allergy symptoms, hives or wheezing [place]/Lymp Hematologic/Lymphatic: No easy bleeding, easy bruising or enlarged lymph nodes Exam Const General: cooperative and healthy appearing Nutritional Appearance: average body habitus Orientation: oriented x3 HENMT Head: normal to inspection Ears: hearing grossly normal bilaterally and TM's normal bilaterally Face and sinus: normal facial exam Mouth: oral mucosae normal Eyes General: appearance normal, both eyes and all related structures Neck Neck: normal visual inspection Resp Effort Inspection: nor (more content not included)... Normal [facility] Emergency Department Summary on 11-04-2023 Emergency Department Summary [facility] Medical Records Department [address] [place] [address] Emergency Department Summary 11/04/23 MR#: [id number] Acct: [id number] Name: JAZIEL MARKS Rep #: [id number] : 1980 43 From: Braeden Mohan MD PCP: Dr. Nando Segovia, DO Status:REG ER Location: ED HPI History of Present Illness Chief Complaint: Male Pain/Injury Narrative Narrative: 43-year-old male who denies significant past medical history presents with left testicular pain that began this morning. He states that throughout the week, he felt pinching in his left groin/testicle that was very transient. He awoke this morning, and had to urinate, and when he went to get up, felt exquisite pain in his left testicle. He denies any fevers or chills, no nausea or vomiting, no abdominal or flank pain. He denies dysuria or hematuria, no problems with bowel movements. No penile discharge. His pain is worsened with any movement and relieved by remaining still. It was more of a constant pain this morning because after getting up to go to the bathroom, he had to lay on the floor secondary to the pain. [facility] Medical History (Updated 11/04/23 @ 13:25 by Braeden Mohan MD) Sleep apnea Asthma Chronic migraine Skin cancer Contact with and (suspected) exposure to other viral communicable diseases Acute pharyngitis, unspecified Home Medications ???Medication ???Instructions ???Recorded ???Last Taken ???Type omeprazole 20 mg capsule,delayed 20 mg PO DAILY 11/07/15 Unknown History release hydrocodone-acetaminop hen 5-325mg 1 tab PO Q6H PRN PRN Pain 3 days 11/04/23 Unknown Rx 5mg-325mg #12 TABLETS Allergy/AdvReac Type Severity Reaction Status Date / Time No Known Allergies Allergy Verified 11/04/23 10:04 Family History (Updated 05/30/23 @ 16:36 by Avis Vaughan MA) Grandfather Parkinson disease Surgical History (Updated 05/30/23 @ 16:38 by Avis Vaughan MA) S/P skin biopsy Social History (Updated 05/30/23 @ 16:40 by Avis Vaughan MA) adopted: No household members: spouse and children number of children: 4 current occupational status: employed current occupation: [employer] pets and animals: Yes pets and animals: dog(s) Smoking Status: Never smoker alcohol intake: never substance use type: does not use caffeine: Yes (1) Type: coffee frequency: does not exercise seatbelt use: always do you feel safe at home: Yes ROS ROS ED ROS Narrative Constitutional: No fever, no chills. HEENT: No sore throat. No neck pain. No loss of vision. No rhinorrhea. Cardiovascular: No chest pain. No palpitations. No pedal edema. Respiratory: No cough, no shortness of breath. Abdominal: No abdominal pain. No nausea. No vomiting. Genitourinary: No dysuria. No hematuria. Positive left testicular pain/left groin pain, worse with movement and relieved by remaining still. Musculoskeletal: No myalgias. No arthralgias. Neurologic: No headaches. No dizziness. No lightheadedness. Skin: No rash. No change in color. Psychiatric: No depression. No anxiety. EXAM Physical Exam Narrative Exam Narrative: Afebrile. Vital signs noted. Regular rate and rhythm. Lungs are clear to auscultation bilaterally. Abdomen soft and nontender with normal active bowel sounds. No CVA tenderness to percussion bilaterally. Chaperoned genitourinary examination reveals no evidence of palpable inguinal hernia. There is mild epididymal tenderness, no testicular tenderness. No noted penile discharge. Const Vital Signs: 11/04/23 10:05 11/04/23 10:05 Temperature 97.1 F L Temperature Source Temporal Pulse Rate 68 72 Respiratory Rate 12 12 Blood Pressure 159/101 H 159/101 H Blood Pressure Mean 120 120 Pulse Ox 99 100 Oxygen Delivery Method Room Air Room Air MDM MDM MDM Narrative Medical decision making narrative: In the differential diagnosis is orchitis versus testicular torsion versus epididymitis. History and physical is more supportive of epididymitis. Patient has been sexually active within the last week. Urinalysis will be obtained to help rule out any infection, and additionally testicular ultrasound was ordered. I reviewed his urinalysis and is negative for infection. There are 0 WBCs. I do not feel antibiotics are indicated. I reviewed the radiology report of the testicular ultrasound and there is no evidence of torsion. He does have a small right hydrocele which I think is not pertinent to his left testicular pain. At this point in time, upon repeat examination at approximately 1:25 PM, he is resting comfortably using his tablet, states he feels improved prior to when he came. While I am unsure as to the cause of his left testicular pain, I do feel he can be discharged to follow-up with urology. He was g (more content not included)... Normal [facility] Testicular with Arterial Rigo won 11-04-2023 Testicular with Arterial Flow [facility] Imaging Services [address] [place] [address] Testicular with Arterial Flow MR#: [id number] Acct: [id number] Name: JAZIEL MARKS Rep #: [id number] : 1980 M 43 From: Michael Mendez PCP: Dr. Nando Segovia, DO Status: REG ER Study: Testicular with Arterial Flow Date of Exam: Exam# [id number] Ordering Dr: Braeden Mohan MD [id number] INDICATION: left testicle/groin pain EXAMINATION: Ultrasound US Scrotum (Contents) TECHNIQUE: Realtime ultrasound of the testicles was performed with grayscale, Color Doppler and spectral Doppler analysis. COMPARISON: No relevant prior comparison study available FINDINGS: RIGHT: TESTIS: 4.9 x 3.7 x 3.1 cm. Normal in size and echotexture, without focal lesion. COLOR DOPPLER: Normal arterial flow present in the testicle with monophasic waveforms. EPIDIDYMIS: The right epididymal head measures about 1.1 cm. No focal lesion is seen. [Normal color Doppler flow pattern in the epididymis. HYDROCELE: There is small right hydrocele. VARICOCELE: None. LEFT: TESTIS: 4 x 3.1 x 2.6 cm. Normal in size and echotexture, without focal lesion. COLOR DOPPLER: Normal arterial flow present in the testicle with monophasic waveforms. EPIDIDYMIS: The left epididymal head measures 1.1 cm. No focal lesion is seen. [Normal color Doppler flow pattern in the epididymis. HYDROCELE: None. VARICOCELE: None. US/Testicular with Arterial Flow IMPRESSION: 1. No evidence of testicular torsion at the time this examination was performed. 2. Small right hydrocele. Electronically Signed: Michael Casper MD at 13:14 EDT , CC: Dr. Braeden Mohan MD; Dr. Nando Segovia DO Supervisor Unloading: Signed Normal [facility] Urinalysis, Completeon 11-03 BACTERIA 0 SEEN Normal None Seen [facility] Comment on above: Order Comment: COLLE CTOR TO SPECIFY Performed By: #### L [id number] #### [facility] [address] [place], [address] EPI,SQUAMOUS 0 SEEN Normal 0-5 [facility] Comment on above: Order Comment: COLLE CTOR TO SPECIFY Performed By: #### L [id number] #### [facility] [address] [place], [address] Mucus Ql (Urine sed) 0 SEEN Normal [facility] Comment on above: Order Comment: COLLE CTOR TO SPECIFY Performed By: #### L [id number] #### [facility] [address] [place], [address] RBC 0 SEEN Normal 0-5 [facility] Comment on above: Order Comment: DEBORAH CTOR TO SPECIFY Performed By: #### L [id number] #### [facility] [address] [place], [address] WBC 0 SEEN Normal 0-5 [facility] Comment on above: Order Comment: DEBORAH CTOR TO SPECIFY Performed By: #### L [id number] #### [facility] [address] [place], [address] Absolute lymphocyte countOrd ered By: Nando Segovia on 05-30-2023 Lymphocytes Auto (Unsp spec) [#/Vol] 3.13 10*3/uL 0.83-4.51 [facility] Automated lymphocyte count a s percentage of total leukocytesOrdered By: Nando Segovia on 05-30-2023 Lymphocytes/100 WBC Auto (Unsp spec) 35.4 % 19-41 [facility] Basophil percentageOrdered B y: Nando Segovia on 05-30-2023 Basophil percentage 0.75 ng/mL 0.0-4.0 [facility] Comment on above: This test was perfor med using the TPSA assay method for the[employer] chemistry system. Values obtained with differentassay methods cannot be used interchangably.When changing PSA assays in the course of monitoring apatient, additional sequential testing should be carriedout to confirm baseline values. Basophils/100 WBC (Bld) 0.6 % 0-1 [facility] Bilirubin [Mass/Vol] 0.70 mg/dL 0.20-1.00 [facility] Comment on above: For patients on eltr ombopag therapy, use of Dimension [place] TBIL is not recommended. Chloride [Moles/Vol] 105 mmol/L 98-107 [facility] Cholesterol [Mass/Vol] 162 mg/dL <200 [facility] Comment on above: <200 mg/dL Desirable 200-240 mg/dL Borderline >240 mg/dL High Risk Eosinophils/100 WBC (Bld) 2.9 % 0-5 [facility] Glucose [Mass/Vol] 96 mg/dL 74-106 [facility] Hemoglobin (Bld) [Mass/Vol] 14.1 g/dL 13.0-16.5 [facility] Monocytes/100 WBC (Bld) 5.5 % 0-10 [facility] Neutrophils (Bld) [#/Vol] 4.9 10*3/uL 2.0-7.7 [facility] Neutrophils/100 WBC (Bld) 55.4 % 47-70 [facility] Potassium [Moles/Vol] 3.9 mmol/L 3.5-5.1 [facility] Protein [Mass/Vol] 7.4 g/dL 6.4-8.2 [facility] Sodium [Moles/Vol] 135 mmol/L 136-145 [facility] Triglyceride [Mass/Vol] 121 mg/dL <199 [facility] Comment on above: The drugs N-Acetylcy steine and Metamizole may falsely depress this assay.Serum Triglycerides Reference Interval Normal <150 mg/dL Borderline high 150 - 199 mg/dL High 200 - 499 mg/dL Very High > or = 500 mg/dL WBC (Bld) [#/Vol] 8.9 10*3/uL 4.4-11.0 [facility] Basophil percentage 0 SEEN /hpf 0-5 [facility] Bilirubin Test strip Ql (U)O rdered By: Nando Segovia on 05-30-2023 Bilirubin Ql (U) Negative Negative [facility] Determination of erythrocyte mean corpuscular volume (MCV)Ordered By: Nando Segovia on 05-30-2023 MCV (RBC) [Entitic vol] 85.2 fL 80-94 [facility] Erythrocyte distribution wid th ratioOrdered By: Nando Segovia on 05-30-2023 Erythrocyte distribution width (RBC) [Ratio] 13.3 % 11.6-14.6 [facility] Erythrocyte distribution wid th standard deviationOrdered By: Nando Segovia on 05-30-2023 Erythrocyte distribution width (RBC) [Entitic vol] 41.3 fL 35.1-43.9 [facility] Hematocrit Auto (Bld) [Volum e fraction]Ordered By: Nando Segovia on 05-30-2023 Hematocrit (Bld) [Volume fraction] 44.5 % 40-54 [facility] Immature granulocytes/100 WB C Auto (Bld)Ordered By: Nando Segovia on 05-30-2023 Immature granulocytes/100 WBC (Bld) 0.200 % 0.0-0.9 [facility] Comment on above: IG% - Immature Granu locytes (promyelocytes, myelocytes and metamyelocytes) > 1% indicates that a LEFT SHIFT is Present. Ketones Test strip Ql (U)Ord ered By: Nando Segovia on 05-30-2023 Ketones Ql (U) Negative Negative [facility] - Chemistry and C hemistry - challengeOrdered By: Nando Segovia on 05-30-2023 Albumin/Globulin [Mass ratio] 1.3 {ratio} 0.9-2.4 [facility] ALP [Catalytic activity/Vol] 75 U/L 45-117 [facility] ALT [Catalytic activity/Vol] 40 U/L 16-61 [facility] Cholesterol in HDL [Mass/Vol] 65 mg/dL >40 [facility] Comment on above: The drugs N-Acetylcy steine and Metamizole may falsely depress this assay. Reference Range HDL <40 mg/dL Low HDL Cholesterol HDL >or= 60 mg/dL High HDL Cholesterol Cholesterol in LDL [Mass/Vol] 73 mg/dL 0-130 [facility] CO2 [Moles/Vol] 29.0 mmol/L 21.0-32.0 [facility] Globulin (S) [Mass/Vol] 3.2 g/dL 2.2-4.2 [facility] Urea nitrogen/Creatinine [Mass ratio] 15.1 mg/mg 10-20 [facility] - Hematology and Cell countsOrdered By: Nando Segovia on 05-30-2023 MCH (RBC) [Entitic mass] 27.0 pg 27.0-32.0 [facility] MCHC (RBC) [Mass/Vol] 31.7 g/dL 32-36 [facility] Nucleated RBC/100 WBC (Bld) [Ratio] 0 % 0-5 [facility] Platelet mean volume (Bld) [Entitic vol] 9.2 fL 6.2-12.0 [facility] Platelets (Bld) [#/Vol] 295 10*3/uL 150-450 [facility] Mucus LM Ql (Urine sed)Order ed By: Nando Segovia on 05-30-2023 Mucus Ql (Urine sed) 0 SEEN /hpf [facility] Nitrite Test strip Ql (U)Ord ered By: Nando Segovia on 05-30-2023 Nitrite Ql (U) Negative Negative [facility] No Panel InformationOrdered By: Nando Segovia on 05-30-2023 Estimated GFR (MDRD) Amer 98 mL/min >60 [facility] Comment on above: GFR Calc Estimated GFR (MDRD) Non-Af Amer 81 mL/min >60 [facility] Comment on above: Non- GFR Calc VLDL Cholesterol 24 mg/dL 5-40 [facility] Urine RBC 0-5 SEEN /hpf 0-5 [facility] Protein Test strip Ql (U)Ord ered By: Nando Segovia on 05-30-2023 Protein Ql (U) Negative Negative [facility] RBC Auto (Bld) [#/Vol]Ordere d By: Nando Segovia on 05-30-2023 RBC (Bld) [#/Vol] 5.22 10*6/uL 4.6-6.2 [facility] [place] [place] Serum or plasma calcium aleena urement (mass/volume)Ordered By: Nando Segovia on 05-30-2023 Calcium [Mass/Vol] 9.4 mg/dL 8.5-10.1 [place] [facility] [place] [place] Serum or plasma creatinine m easurement (mass/volume)Ordered By: Nando Segovia on 05-30-2023 Creatinine [Mass/Vol] 1.06 mg/dL 0.70-1.30 [facility] Comment on above: The validity of the calculated GFR & GFRAA in patients over 70 years has not been determined. Clinical correlation is essential. Serum or plasma urea nitroge n measurement (mass/volume)Ordered By: Nando Segovia on 05-30-2023 Urea nitrogen [Mass/Vol] 16 mg/dL 7-18 [facility] Squamous epithelial cells de tection in urine sediment by light microscopyOrdered By: Nando Segovia on 05-30-2023 Epithelial cells.squamous LM Ql (Urine sed) 0-5 SEEN /hpf 0-5 [facility] Thin prep Papanicolaou smear with manual screeningOrdered By: Nanod Segovia on 05-30-2023 Thin prep Papanicolaou smear with manual screening 4.2 g/dL 3.2-5.0 [facility] Thin prep Papanicolaou smear with manual screening 18 U/L 15-37 [facility] Thin prep Papanicolaou smear with manual screening 1 5-15 [facility] Urine blood detectionOrdered By: Nando Segovia on 05-30-2023 RBC Ql (U) 10 /ul Negative [facility] Urine clarityOrdered By: Joon Segovia on 05-30-2023 Clarity (U) Clear Clear [facility] Urine color determinationOrd ered By: Nando Segovia on 05-30-2023 Color (U) Yellow Yellow [facility] Urine glucose detectionOrder ed By: Nando Segovia on 05-30-2023 Glucose Ql (U) Normal mg/dl Normal [facility] Urine leukocyte esterase det ection by dipstickOrdered By: Nando Segovia on 05-30-2023 Leukocyte esterase Test strip Ql (U) Negative Negative [facility] Urine pHOrdered By: Nando Segovia on 05-30-2023 pH (U) 7.0 [pH] 5.0 - 8.0 [facility] Urine sediment bacteria coun t by microscopy (number/high power field)Ordered By: Nando Segovia on 05-30-2023 Bacteria LM.HPF (Urine sed) [#/Area] 0 /[HPF] None Seen [facility] Urine specific gravity measu rementOrdered By: Nando Segovia on 05-30-2023 Specific gravity (U) [Rel density] 1.010 1.002-1.030 [facility] Urine urobilinogen measureme ntOrdered By: Nandojuan Segovia on 05-30-2023 Urobilinogen Ql (U) Normal mg/dl Normal [facility] Whole blood hemoglobin A1c/t otal hemoglobin ratio (mass fraction)Ordered By: Nando Segovia on 05-30-2023 HbA1c (Bld) [Mass fraction] 6.0 % 3.8-5.6 [facility] Comment on above: Normal < 5.7 % Predi abetic 5.7 - 6.4 % Diabetic >or= 6.5 % Please note range changes. CNOVon 02-25-2023 CNOV Office Visit ([facility] ) JAZIEL MARKS ([id number]) 1980 M Date Time Provider Department 02/25/23 9:15 AM THOMAS ARORA [facility] During your visit today, we recorded the following information about you: Temperature Pulse Respiration Blood pressure 99.3 degrees 88/minute 16/minute 132/84 Weight 107.4 kg Thomas Arora APRN.CNP 02/25/2023 9:43 AM Signed This note was created using NoteWriter. Subjective Jaziel Adamser is a 42 year old male. 42 year old male with PMH GERD presents for illness. Acute onset 4 days ago +sore throat +cough +congestion + headache +stuffy nose +body aches +chills Denies N/V/D Denies fever Has used Mucinex Ibuprofen Denies tobacco usage. The history is provided by the patient. No speech language specialist was used. Cough This is a new [...] (Patient not taking: Reported on 11/05/2020 ) cetirizine-pseudoephed rine (ZYRTEC-D) 5-120 mg ORAL Tb12 one tablet twice a day as needed (Patient not taking: Reported on 11/05/2020) mometasone (NASONEX) 50 mcg/Actuation NASAL [place] 2 sprays in each nostril once a [...] Negative for adenopathy. Does not bruise/bleed easily. Psychiatric/Behavioral : Negative for agitation and behavioral problems. Objective [...] rales. Chest: Chest wall: No tenderness. Abdominal: Gener (more content not included)... Normal [facility] STREP A MOLECULAR (POC)on Procedural Control Valid [facility] Strep A (POCT) Negative Negative [facility] CNOVon 08-27-2022 CNOV Office Visit ([facility] ) JAZIEL MARKS ([id number]) 1980 M Date Time Provider Department 08/27/22 3:00 PM JEREMIE SANDERS [facility] During your visit today, we recorded the following information about you: Temperature Pulse Respiration Blood pressure 98.4 degrees 90/minute 16/minute 128/82 Weight 110.4 kg LISA Berry 08/27/2022 3:05 PM Signed This note was created using ShipBob. Subjective Jaziel Marks is a 42 year old male. [...] (Patient not taking: Reported on 11/05/2020 ) cetirizine-pseudoephed rine (ZYRTEC-D) 5-120 mg ORAL Tb12 one tablet twice a day as needed (Patient not taking: Reported on 11/05/2020) mometasone (NASONEX) 50 mcg/Actuation NASAL [place] 2 sprays in each nostril once a [...] detail warranting prompt ER evaluation. LISA Berry Allergies As of Date: 08/27/2022 Noted Allergy Reaction environmental [Other] 08/23/2005 Comments: Cockroaches, dust mites, weeds, ragweed Date Reviewed: 08/27/2022 Reviewed by: Wendi Yun LPN - Fully Assessed Reason for Visit: Cough [28] Cmt: Cough and congestion x 3 weeks Primary Visit Diagnosis:Sinobronchit is [J32.9, J40] Order(s):doxycycline monohydrate 100 mg tabletTake 1 tablet by mouth twice daily for 5 days.Disp: 10 tabletRfl: 0 Prescriptions as of 08/27/2022 - doxycycline monohydrate 100 mg tablet Take 1 tablet by mouth twice daily for 5 days. - CETIRIZINE HCL (ZYRTEC ORAL) Take by mouth. - OMEPRAZOLE (PRILOSEC ORAL) Take by mouth. - clotrimazole (ANTIFUNGAL, CLOTRIMAZOLE,) 1 % cream Apply 1 application to affected area twice daily. - cetirizine-pseudoephed rine (ZYRTEC-D) 5-120 mg ORAL Tb12 one tablet twice a day as needed - mometasone (NASONEX) 50 mcg/Actuation NASAL [place] 2 sprays in each nostril once a day - Albuterol Sulfate (PROVENTIL HFA) 90 mcg/Actuation INHALATION HFAA 2 puffs every four hours as needed for (more content not included)... Normal [facility] XR ANKLE MINIMUM 3 VIEWS LEF Ton 04-26-2021 XR ANKLE MINIMUM 3 VIEWS LEFT ORIGINAL EXAMINATION: THREE XRAY VIEWS OF THE LEFT ANKLE04/26/2021 3:15 pm ANKLE 3 VIEWS LEFT COMPARISON: None HISTORY: ORDERING SYSTEM PROVIDED HISTORY: Reason for Exam: peroneal tendinitis left foot/ankle; pain left foot/ankl FINDINGS: No acute fracture or dislocation is identified. The ankle mortise and talar dome are normal. The joint spaces are maintained. There is no radiopaque foreign body. Sclerotic density is seen in the anterior calcaneus, likely a bone island. IMPRESSION: No acute fracture or dislocation. Interpreted by: Nehemias Aden MD Preliminary Report By: Nehemias Aden MD Electronically signed By Nehemias Aden MD Dictated Date: 04/26/2021 4:20:13 PM Prelim Date: 04/26/2021 4:20:49 PM Sign Date: 04/26/2021 4:20:49 PM Ordering Provider: [facility] ([place]) XR FOOT MINIMUM 3 VIEWS LEFT on 04-26-2021 XR FOOT MINIMUM 3 VIEWS LEFT ORIGINAL EXAMINATION: THREE XRAY VIEWS OF THE LEFT FOOT04/26/2021 3:15 pm FOOT 3 VIEWS LEFT COMPARISON: None HISTORY: ORDERING SYSTEM PROVIDED HISTORY: Reason for Exam: peroneal tendinitis left foot/ankle; pain left foot/ankle FINDINGS: No acute fracture or dislocation is identified. The joint spaces are maintained. There is no radiopaque foreign body. IMPRESSION: No acute fracture or dislocation. Interpreted by: Nehemias Aden MD Preliminary Report By: Nehemias Aden MD Electronically signed By Nehemias Aden MD Dictated Date: 04/26/2021 4:20:52 PM Prelim Date: 04/26/2021 4:21:28 PM Sign Date: 04/26/2021 4:21:28 PM [facility] Foot - left AP and Latera l and obliqueon 11-05-2020 IMPRESSION: Refer to the result. Supervisor Unloading: PSCB Transcribe Date/Time: Nov 05 2020 7:13P Dictated by : LAURIE ROPER MD This examination was interpreted and the report reviewed and electronically signed by: LAURIE ROPER MD on Nov 05 2020 7:16PM [facility] DIVISION OF RADIOLOGY * * *Final Report* * * DATE OF EXAM: Nov 05 2020 6:39PM [id number] - XR FOOT 3V AP/LAT/OBL LT / PROCEDURE REASON: Foot pain, left * * * * Physician Interpretation * * * * EXAMINATION: XR FOOT 3V AP/LAT/OBL LT CLINICAL HISTORY: pt. states Lt heel and arch pain for 2 weeks. No injury. Foot pain, left Technique: XR FOOT 3V AP/LAT/OBL LT -- LEFT foot with 3 views on 3 images Comparison: Not RESULT: No acute fracture or dislocation is identified. Mild degenerative spurring is present at the 1st metatarsophalangeal joint. There is also narrowing and degenerative spurring at the 2nd proximal interphalangeal joint. No calcaneal spur or radiopaque foreign body is identified. DIVISION OF RADIOLOGY Provider, [facility] - 11/05/2020 * * *Final Report* * * DATE OF EXAM: Nov 05 2020 6:39PM [id number] - XR FOOT 3V AP/LAT/OBL LT / PROCEDURE REASON: Foot pain, left * * * * Physician Interpretation * * * * EXAMINATION: XR FOOT 3V AP/LAT/OBL LT CLINICAL HISTORY: pt. states Lt heel and arch pain for 2 weeks. No injury. Foot pain, left Technique: XR FOOT 3V AP/LAT/OBL LT -- LEFT foot with 3 views on 3 images Comparison: Not RESULT: No acute fracture or dislocation is identified. Mild degenerative spurring is present at the 1st metatarsophalangeal joint. There is also narrowing and degenerative spurring at the 2nd proximal interphalangeal joint. No calcaneal spur or radiopaque foreign body is identified. IMPRESSION IMPRESSION: Refer to the result. Supervisor Unloading: PSCB Transcribe Date/Time: Nov 05 2020 7:13P Dictated by : LAURIE ROPER MD This examination was interpreted and the report reviewed and electronically signed by: LAURIE ROPER MD on Nov 05 2020 7:16PM EST [facility] Radiology Study observation (narrative) [facility] XR Foot - left AP and Latera l and obliqueOrdered By: Ccf Provider on 11-05-[address] [facility] Vital Signs Date Time Vital Sign Value Performing Clinician Faci anamikay 06-18-2024 14:48-0500 Body temperature 98.5 [degF] Dr. Nando Segovia DO Work Phone: [facility] 06-18-2024 14:48-0500 Diastolic blood pressure 78 mm[Hg] Dr. Nando Segovia DO Work Phone: [facility] 06-18-2024 14:48-0500 Heart rate 74 /min Dr. Nando Segovia DO Work Phone: [facility] 06-18-2024 14:48-0500 Respiratory rate 16 /min Dr. Nando Segovia DO Work Phone: [facility] 06-18-2024 14:48-0500 SaO2% (BldA) [Mass fraction] 98 % Dr. Nando Segovia DO Work Phone: [facility] 06-18-2024 14:48-0500 Systolic blood pressure 128 mm[Hg] Dr. Nando Segovia DO Work Phone: [facility] 06-18-2024 10:53-0500 Body height 175.[address] Nando Segovia DO Work Phone: [facility] 06-18-2024 10:53-0500 Body mass index (BMI) [Ratio] 35.4 kg/m2 Dr. Nando Segovia DO Work Phone: [facility] 06-18-2024 10:53-0500 Body weight [address] Nando Segovia DO Work Phone: [facility] 06-10-2024 14:16-0500 Body mass index (BMI) [Ratio] 36.6 kg/m2 Dr. Nando Segovia DO Work Phone: [facility] 06-10-2024 14:16-0500 Body temperature 97.2 [degF] Dr. Nando Segovia DO Work Phone: [facility] 06-10-2024 14:16-0500 Body weight 112.[address] Nando Segovia DO Work Phone: [facility] 06-10-2024 14:16-0500 Diastolic blood pressure 90 mm[Hg] Dr. Nando Segovia DO Work Phone: [facility] 06-10-2024 14:16-0500 Heart rate 72 /min Dr. Nando Segovia DO Work Phone: [facility] 06-10-2024 14:16-0500 Respiratory rate 18 /min Dr. Nando Segovia DO Work Phone: [facility] 06-10-2024 14:16-0500 SaO2% (BldA) [Mass fraction] 100 % Dr. Nando Segoiva DO Work Phone: [facility] 06-10-2024 14:16-0500 Systolic blood pressure 147 mm[Hg] Dr. Nando Segovia DO Work Phone: [facility] 05-28-2024 16:10-0500 Body mass index (BMI) [Ratio] 36.6 kg/m2 Dr. Nando Segovia DO Work Phone: [facility] 05-28-2024 16:10-0500 Body temperature 96.1 [degF] Dr. Nando Segovia DO Work Phone: [facility] 05-28-2024 16:10-0500 Body weight 112.[address] Nando Segovia DO Work Phone: [facility] 05-28-2024 16:10-0500 Diastolic blood pressure 78 mm[Hg] Dr. Nando Segovia DO Work Phone: [facility] 05-28-2024 16:10-0500 Heart rate 104 /min Dr. Nando Segovia DO Work Phone: [facility] 05-28-2024 16:10-0500 Respiratory rate 18 /min Dr. Nando Segovia DO Work Phone: [facility] 05-28-2024 16:10-0500 SaO2% (BldA) [Mass fraction] 94 % Dr. Nando Segovia DO Work Phone: [facility] 05-28-2024 16:10-0500 Systolic blood pressure 132 mm[Hg] Dr. Nando Segovia DO Work Phone: [facility] 05-30-2023 16:40-0500 Body height 176.[address] Eliana Rivera Work Phone: [facility] 05-30-2023 16:40-0500 Body mass index (BMI) [Ratio] 35 kg/m2 Dr. Eilana Rivera Work Phone: [facility] 05-30-2023 16:40-0500 Body temperature 98.8 [degF] Dr. Eliana Rivera Work Phone: [facility] 05-30-2023 16:40-0500 Body weight 109.[address] Eliana Rivera Work Phone: [facility] 05-30-2023 16:40-0500 Diastolic blood pressure 80 mm[Hg] Dr. Eliana Rivera Work Phone: [facility] 05-30-2023 16:40-0500 Heart rate 78 /min Dr. Eliana Rivera Work Phone: [facility] 05-30-2023 16:40-0500 Respiratory rate 16 /min Dr. Eliana Rivera Work Phone: [facility] 05-30-2023 16:40-0500 SaO2% (BldA) [Mass fraction] 98 % Dr. Eliana Rivera Work Phone: [facility] 05-30-2023 16:40-0500 Systolic blood pressure 120 mm[Hg] Dr. Eliana Rivera Work Phone: [facility] 02-25-2023 09:16-0400 Body temperature 99.3 [degF] Thomas Arora [employer] Work Phone: [facility] 02-25-2023 09:16-0400 Body weight 107.41 kg Thomas Raora [employer]ING [employer] PERSON.[employer] K[employer]PER Work Phone: [facility] 02-25-2023 09:16-0400 Diastolic blood pressure 84 mm[Hg] Thomas Arora [employer]ING [employer] PERSON.[employer] K[employer] Work Phone: [facility] 02-25-2023 09:16-0400 Heart rate 88 /min Thomas Arora [employer]ING [employer] PERSON.[employer] K[employer]PER Work Phone: [facility] 02-25-2023 09:16-0400 Respiratory rate 16 /min Thomas Arora [employer]ING [employer] PERSON.[employer] K[employer]PER Work Phone: [facility] 02-25-2023 09:16-0400 SaO2% (BldA) [Mass fraction] 95 % Thomas Arora [employer]ING [employer] PERSON.[employer] K[employer] Work Phone: [facility] 02-25-2023 09:16-0400 Systolic blood pressure 132 mm[Hg] Thomas Arora [employer]NING B[employer] PERSON.[employer] K[employer] Work Phone: [facility] 08-27-2022 14:54-0400 Body temperature 98.4 [degF] Jeremie Sanders PA Work Phone: [facility] 08-27-2022 14:54-0400 Body weight 110.41 kg Jeremie Sanders PA Work Phone: [facility] 08-27-2022 14:54-0400 Diastolic blood pressure 82 mm[Hg] Krislyn Aberegg PA Work Phone: [facility] 08-27-2022 14:54-0400 Heart rate 90 /min Krislyn Aberegg PA Work Phone: [facility] 08-27-2022 14:54-0400 Respiratory rate 16 /min Krislyn Aberegg PA Work Phone: [facility] 08-27-2022 14:54-0400 SaO2% (BldA) [Mass fraction] 96 % Krislyn Aberegg PA Work Phone: [facility] 08-27-2022 14:54-0400 Systolic blood pressure 128 mm[Hg] Krislyn Aberegg PA Work Phone: [facility] Encounters Encounter Date Encounter Type Care Provider Facility Start: 08-06-2024 End: 08-06-[address] Bob Gan MD -Laboratory, Specimen Work Phone: Start: 08-06-2024 End: 08-06-[address] Nando Segovia DO Work Phone: [facility] Work Phone: Start: 07-29-2024 End: 07-29-[address] Nando Segovia DO Work Phone: [facility] Work Phone: Start: 07-29-2024 End: 07-29-[address] Bob Gan MD -Laboratory, Specimen Work Phone: Start: 07-29-2024 End: 07-29-2024 ambulatory Bob Gan Facility:[facility] Start: 07-27-2024 End: 07-27-[address] Nando Segovia DO Work Phone: [facility] Work Phone: Start: 07-27-2024 End: 07-27-[address] Bob Gan MD -Laboratory, Specimen Work Phone: Start: 07-26-2024 End: 07-27-[address] Nando Segovia DO Work Phone: [facility] Work Phone: Start: 07-26-2024 End: 07-26-[address] Bob Gan MD -Laboratory Work Phone: Start: 07-26-2024 End: 07-26-2024 ambulatory Bob Gan Facility:[facility] Start: 07-02-2024 Encounter for other preprocedural examination Bob Gan [facility] Start: 06-27-2024 End: 06-27-[address] Bob Gan MD -[facility] Work Phone: Start: 06-27-2024 End: 06-27-2024 ambulatory Bob Gan Facility:[facility] Start: 06-18-2024 End: 06-18-2024 Non-patient / Non-visit Dr. Octavio Santoyo MD -[facility] Work Phone: Start: 06-18-2024 End: 06-18-2024 Admission to same day surgery center Dr. Bob Gan MD [facility] Start: 06-18-2024 End: 06-18-2024 ambulatory Bob Gan Facility:[facility] Start: 06-10-2024 End: 06-10-[address] Bob Gan MD -[facility] Work Phone: Start: 06-10-2024 End: 06-10-2024 ambulatory Bob Gan Facility:[facility] Start: 06-04-2024 End: 06-04-[address] Nando Morris DO -[facility] Start: 06-04-2024 End: 06-04-2024 ambulatory Nando Segovia Facility:[facility] Start: 05-28-2024 End: 05-28-[address] Nando Morris DO -[facility] Work Phone: Start: 05-28-2024 End: 05-28-2024 ambulatory Nando Segovia Facility[facility] Start: 05-01-2024 ambulatory Nando Segovia Facilit y:[facility] Start: 11-04-2023 End: 11-04-2023 Emergency department patient visit Nando Segovia Facility:[facility] Start: 05-30-2023 End: 05-30-[address] Eliana Rivera Work Phone: [facility] Work Phone: Start: 05-30-2023 End: 05-30-[address] Eliana Rivera Work Phone: [facility] Work Phone: Start: 05-30-2023 End: 05-30-[address] Eliana Rivera Work Phone: [facility] Start: 03-24-2023 End: 03-24-[address] Eliana Rivera Work Phone: [facility] Work Phone: Start: 02-25-2023 End: 02-25-2023 ambulatory ELIANA RIVERA Facility:[facility] Start: 02-25-2023 End: 02-25-2023 Patient encounter procedure Thomas Arora APRN.CNP Work Phone: [facility] Comment on above: URI, acute (Primary Dx) Start: 08-27-2022 End: 08-27-2022 ambulatory ELIANA RIVERA Facility:[facility] Start: 08-27-2022 End: 08-27-2022 Patient encounter procedure Jeremie GONZALEZ Work Phone: [facility] Comment on above: Sinobronchitis (Prim angelina Dx) Start: 04-26-2021 End: 04-26-[address] DARA KHAN DPM [facility] Start: 11-05-2020 End: 11-05-2020 Subsequent hospital visit by physician Xr [facility] Work Phone: Radiology Comment on above: Foot pain, left [M79 .672] Procedures Date Procedure Procedure Detail Performing Clinician Start: 02-25-2023 STREP A MOLECULAR (POC) Thomas Arora SPINNING BATH PERSON.PARK KEEPER Work Phone: Start: 11-05-2020 Radex foot complete minimum 3 views Kvng Gutiérrez SPINNING BATH PERSON.PARK KEEPER Work Phone: H/O: vasectomy S/P vasectomy Dr. Bob Gan MD Plan of Treatment Date Care Activity Detail Author Start: 06-18-2024 Anesthesia hernia re pair upper abdomen nos ANES HRNA RPR UPR ABD NOS [facility] Start: 06-18-2024 RPR AA HRN 1ST < 3 CM RDC RPR AA HRN 1ST < 3 CM RDC [facility] Start: 06-18-2024 Vasectomy uni/bi spx w/postop semen exams REMOVAL OF SPERM DUCT(S) [facility] Start: 06-18-2024 Patient discharge [facility] Start: 05-28-2024 Patient referral [facility] Work Phone: Start: 12-24-2023 Covid-19 Vaccine ( season) Covid-19 Vaccine ( season) [facility] Start: 12-24-2023 Influenza vaccination Influenza Vacc ine (#1) [facility] Start: 12-23-2022 Influenza vaccination C [facility] Start: 04-24-2022 DEPRESSION ASSESSMENT DEPRESSION ASS ESSMENT [facility] Start: 2014 Lipid 1996 panel - S jose miguel or Plasma Lipid Screening [facility] Start: 2014 Lipid panel Lipid Screening [facility] Start: 2014 LIPID SCREEN LIPID SCREEN [facility] Start: 1998 Urine microalbumin profile DTAP,TDAP,TD (1 - Tdap) [facility] Start: 08-27-1997 Urine microalbumin profile DTaP,Tdap,Td Vaccine (2 - Tdap) [facility] Start: 1997 Anxiety Screening Anxiety Screening [facility] Start: 1997 Depression Screening Depression Scre gunnar [facility] Start: 1997 HEPATITIS C SCREENING HEPATITIS C [facility] Start: 1997 Hepatitis C screening Hepatitis C [facility] Start: 1997 HIV SCREENING HIV SCREENING [facility] Start: 1997 HIV screening HIV Screening [facility] Start: 1979 COVID-19 VACCINE (#1) COVID-19 VACCI NE (#1) [facility] Start: 1979 HEPATITIS B (1 of 3 - 3-dose series) HEPATITIS B (1 of 3 - 3-dose series) [facility] Patient referral [facility] Work Phone: Spermatozoa [Presenc e] in Semen by Light microscopy --post vasectomy [facility] Immunizations Immunization Date Immunization Notes Care Provider Lisa taylor 02-27-2016 influenza virus vaccine, unspecified formulation Thomas Arora SPINNING BATH PERSON.PARK KEEPER Work Phone: [facility] 01-24-2009 influenza virus vaccine, unspecified formulation Jeremie GONZALEZ Work Phone: [facility] Work Phone: Payers Date Payer Category Payer Self-pay [id number] 2020 Unknown [employer] P[employer] [id number] 2020-Present [phone] [address] [place] [address] PPO [id number] 2009 Unknown [id number] Unknown [id number] Unknown [id number] Unknown [id number] Unknown [id number] Unknown [id number] Unknown [id number] Unknown [id number] Unknown [id number] Unknown [id number] Unknown [id number] Unknown [id number] Unknown [id number] Unknown [id number] Social History Date Type Detail Facility Never smoker [facility] Start: 1980 Sex Assigned At Male [facility] Start: 08-27-2022 End: 06-13-2024 Tobacco smoking status AZIS Never smoked tobacco [facility] Start: 04-24-2017 End: 08-27-2022 Tobacco use and exposure Smokeless tobacco non-user [facility] Start: 11-05-2020 End: 08-27-2022 Alcohol intake Current non-drinker of alcohol (finding) [facility] Start: 1980 Sex Assigned At Not on file [facility] Start: 11-05-2020 End: 02-25-2023 History of Social function [facility] Start: 11-05-2020 End: 02-25-2023 Tobacco use panel [facility] National Score (1-100), lower number is lower risk Not on file [facility] Start: 05-30-2023 Tobacco smoking stat us NHIS Unknown if ever smoked [facility] Start: 10-06-2020 End: 11-05-2020 Exposure to SARS-CoV-2 (event) Not sure [facility] Start: 07-31-2024 End: 08-08-2024 Sex Male (finding) [facility] Goals Date Patient Goal Desired Activity /State Mental Status Date Assessment Result Facility 06-18-2024 Cognitive function Voice/Name [facility] Work Phone: Clinical Notes 11-05-2020 to 06-18-2024 Note Date & Type Note Facility 06-18-2024 Note [facility] Medical Records Department [address] [place] [address] History Physical Exam 06/18/24 1100 MR#: [id number] Acct: [id number] Name: JAZIEL MARKS Rep #: [id number] : 1980 44 From: Bob Gan MD PCP: Dr. Nando Segovia, DO Status:[facility] Location: [place] [address] History and Physical Date of Admission: 06/18/24 Intake Vital Signs 05/28/2515:10 06/10/2513:16 Height 5 ft 9 in 5 ft 9 in Weight: 248 lb 8 oz 248 lb BMI 36.6 36.6 BP 132/78 H 147/90 H Blood Pressure Location Lt brachial Rt brachial Position Sitting Sitting Respiration 18 18 Pulse 104 H 72 Pulse Source Monitor Monitor Temp 96.1 F L 97.2 F L Temp Source Temporal Temporal Pulse Oximetry (%) 94 100 Oxygen Delivery Method room air room air Intake Visit Reasons: UMBILICAL HERNIA VASECTOMY Chief Complaint: umbilical hernia and vasectomy Is patient in pain?: No Allergies No Known Allergies Allergy (Verified 06/10/24 14:17) Medications ???Medication ???Instructions ???Recorded ???Confirmed ???Type omeprazole 20 mg capsule,delayed 20 mg PO DAILY 11/07/15 06/10/24 History release CPAP and supplies #1 ea 05/28/24 06/10/24 Rx sildenafil 50 mg tablet (Viagra) 50 mg PO QDAY PRN sexual activity 05/28/24 5 Rx #7 tabs [facility] Medical History (Updated 06/10/24 @ 14:[address] Bob Gan MD) Encounter for vasectomy Sleep apnea Asthma Chronic migraine Skin cancer Contact with and (suspected) exposure to other viral communicable diseases Acute pharyngitis, unspecified Surgical History S/P skin biopsy Family History Grandfather Parkinson disease Social History adopted: No household members: spouse and children number of children: 4 current occupational status: employed current occupation: [employer] pets and animals: Yes pets and animals: dog(s) Smoking Status: Never smoker alcohol intake: never substance use type: does not use caffeine: Yes (1) Type: coffee frequency: does not exercise seatbelt use: always do you feel safe at home: Yes HPI HPI HPI: Patient is a 44-year-old male here for 2 issues. He would like his umbilical hernia repaired and he would like a vasectomy. He reports that the hernia has been for 7 to 8 years. He says it does grow a little bit larger. He denies any other issues. His is on board with vasectomy. He would like these done at the same time. ROS General General: No weight change, appetite, fatigue, colon cancer, breast cancer or weakness HEENT HEENT: No difficulty swallowing, eye injury, eye surgery, swollen glands or hoarseness Endo Endocrine: No thyroid disease, diabetes mellitus, thyroid cancer, Hair loss, heat intolerance or cold intolerance Skin Skin: Yes changing moles; No rash Musc Musculoskeletal: No back problems, arthritis, rheumatoid arthritis, gout or joint pain Cardio Cardiovascular: No murmur, pacemaker, heart disease, atrial fibrillation, high blood pressure, heart attack, heart stent, palpitations, shortness of breat with exertion or chest pain Psych Psychiatric: No depression, anxiety or hearing voices Resp Respiratory: No shortness of breath, Yes sleep apnea, No cough, No COPD, No asthma, No emphysema and No wheezing Gastro Gastrointestinal: No abdominal pain, No nausea or vomiting, No diarrhea, No constipation, No blood in stool, Yes acid reflux, No hemorrhoids, No ulcers, No gallbladder problem and No black,tarry stools [place] Hematologic: No blood thinners, No blood disorders, No bleeding, No anemia and No blood clots Neuro Neurologic: No numbness, No tingling and No weakness Exam Const General: cooperative Orientation: alert and oriented x3 HENMT Head: normal to inspection Neck Neck: normal visual inspection and full ROM Chest Chest palpation inspection: normal inspection of the chest Resp Effort Inspection: normal respiratory effort Auscultation: clear to auscultation bilaterally Cardio Rate: regular rate Rhythm: regular rhythm GI Inspection: non-distended Palpation: soft, hernia umbilical and nontender Skin General: no rashes or lesions noted Neuro General: patient alert and patient oriented x3 Extrem General: full ROM Psych Appearance: grossly normal Mental Status: mental status grossly normal Assessment and Plan Assessment and Plan (1) Umbilical hernia: Status: Acute Qualifiers: Obstruction and gangrene presence: without obstruction or gangrene Qualified Code(s): K42.9 - Umbilical hernia without obstruction or gangrene Plan: Patient has a small umbilical hernia which may require mesh if it is over 1 (more content not included)... [facility] 05-28-2024 Evaluation note Diagnosis Onset Date Resolution Erectile dysfunction acute uary 2024 4:06pm History of elevated glucose acute May 28 4:06pm Urinary frequency acute uar y 2024 4:06pm Umbilical hernia resolved May 28, 2024 4:06pm Encounter for vasectomy acute F ebruary 2024 2:00pm Umbilical hernia resolved June 10, 2024 2:00pm S/P umbilical hernia repair, follow-up exam acute June 2:22pm S/P vasectomy acute June 27, 2024 2:22pm [facility] Work Phone: [phone] 145-445711-04-2023 NoteHNO ID: [id number] Author: Thomas Arora APRN.PARK KEEPER Service: ? Author Type: Nurse Practitioner Type: Progress Notes Filed: 02/25/2023 9:43 AM Note Text: This note was created using NoteWriter. Subjective Jaziel Marks is a 42 year old male. 42 year old male with PMH GERD presents for illness. Acute onset 4 days ago +sore throat +cough +congestion + headache +stuffy nose +body aches +chills Denies N/V/D Denies fever Has used Mucinex Ibuprofen Denies tobacco usage. The history is provided by the patient. No speech language specialist was used. Cough This is a new [...] on 11/05/2020) mometasone (NASONEX) 50 mcg/Actuation NASAL [place] 2 sprays in each nostril once a [...] or signs of inj (more content not included)...[facility]11-04-2023 History of Present illness Narrative* Thomas Arora APRN.PARK KEEPER - 02/25/2023 9:25 AM EDT This note was created using KILTRriter. Subjective Jaziel Marks is a 42 year old male. 42 year old male with PMH GERD presents for illness. Acute onset 4 days ago +sore throat +cough +congestion + headache +stuffy nose +body aches +chills Denies N/V/D Denies fever Has used Mucinex Ibuprofen Denies tobacco usage. The history is provided by the patient. No speech language specialist was used. Cough This is a new [...] on 11/05/2020) mometasone (NASONEX) 50 mcg/Actuation NASAL [place] 2 sprays in each nostril once a [...] pressure, sinus pain and sore throat. Negative forear pain. Eyes: Negative for pain, discharge, redness [...] of symptoms - STREP A MOLECULAR (POC) Thomas Arora APRN.PARK KEEPER documented in this encounter[facility]23 NoteHNO ID: [id number] Author: LISA Berry Service: ? Author Type: Physician Decision Support Manager Type: Progress Notes Filed: 08/27/2022 3:05 PM Note Text: This note was created using KILTRriter. Subjective Jaziel Marks is a 42 year old male. [...] on 11/05/2020) mometasone (NASONEX) 50 mcg/Actuation NASAL [place] 2 sprays in each nostril once a [...] discussed in detail warranting prompt ER evaluation. Jeremie Sanders [facility]05-06-2023 History of Present illness Narrative* LISA Berry - 08/27/2022 3:01 PM EDT This note was created using NoteWriter. Subjective Jaziel Marks is a 42 year old male. HPI 42-year-old male presents for congestion, cough. Patient states he has had congestion cough forabout 3 weeks. He has had some sinus [...] on 11/05/2020) mometasone (NASONEX) 50 mcg/Actuation NASAL [place] 2 sprays in each nostril once a [...] ER evaluation. LISA Berry documented in this encounter[facility] History of Present illness Narrative* Vega Fenton RT(R) - 11/05/2020 6:30 PM EDT Radiology Service Progress Note PATIENT NAME: Jaziel Marks DATE OF SERVICE: November 05, 2020 TIME: 6:29 PM PATIENT IDENTITY VERIFICATION COMPLETED USING TWO (2) IDENTIFIERS: Name and Date of confirmedby patient verbally. FALL SCREENING: Has the patient had 2 falls in the last year or 1 fall with injury or currently using an Ambulatory Assistive Device (Walker, Cane, Wheelchair, Crutches, etc.)? No PATIENT GENDER DATA: Male PATIENT RELEVANT IMPLANT DATA REVIEWED: Not Applicable RADIOLOGY DEPARTMENT: General X-ray: Exam(s) Completed: Lower Extremity X- Ray(s): Foot, Left and Wt. Bearing PERIPHERAL IV DATA: Not applicable SIGNED BY: RT Hardy(R) November 05, 2020 6:29 PM documented in this encounterUniversity Hospitals St. [facility] CenterEvaluation + Plan note No data available for this section [facility] Evaluation note* Diagnosis Sinobronchitis- Primary Unspecified sinusitis (chronic) documented in this encounter 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 History of elevated glucose acute Physical exam acute Flank pain, chronic chronic [facility] Work Phone: Hospital Discharge instructions No data available for this section [facility] Reason for referral (narrative)No reason for referral information [facility] Work Phone: Summary Purpose Family History No Family History Records Found Relationship Condition Age at Onset Recorded Date/T raisa grandfather Parkinson's disease Unknown Advance Directives No Advanced Directives Records Found Advance Directive Response Recorded Date/ Time Living Will No July 21, 2018 11:25pm Power of Manager Of Internal No July 21 11:25pm Advance Directive Response Recorded Date/ Time Living Will Yes June 13 4:12pm Do you have a Healthcare Power of Manager Of Internal? 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 EST NEW PT - PPW SENT Reason for Visit Encounter for examin ation required by Department of Transportation (DOT) History of elevated glucose Physical exam Flank pain, chronic Chief Complaint Admit Date 1 Y FU May 28, 2024 4 :06pm UMBILICAL HERNIA & VASECTOMY June 102024 2:00pm Hernia, Open Umbilical Repair w/ Mesh & vastectomy June 18, 2024 10:31am Hernia, Open Umbilical Repair w/ Mesh & vastectomy June 18, 2024 11:00am PREOP June 18, 2024 11:02am HERNIA / VASECTOMY 06-18June 27, 2024 2:22pm EORDERS July 26, 2024 9:04 am Reason for Visit Admit Date Erectile dysfunction May 28, 2024 4:06pm History of elevated glucose May 4:06pm Urinary frequency May 28, 2024 4 :06pm Umbilical hernia May 28, 2024 4 :06pm Encounter for vasectomy June 10, 025 2:00pm Umbilical hernia June 10, 2024 2:00pm S/P umbilical hernia repair, follow-up e xam June 27, 2024 2:22pm S/P vasectomy June 27, 2024 2:22 pm Additional Source Comments (unrecognized sect ion and content) No Status Records FoundNo Status Records FoundNo Status Records Found INFORMATION SOURCE (unrecogn ized section and content) DATE CREATED AUTHOR 04/27/2021 [facility] ([place]) DATE CREATED AUTHOR AUTHOR'S ORGANIZ ATION 02/26/2023 [facility] DATE CREATED AUTHOR AUTHOR'S ORGANIZ ATION 08/10/2024 [facility] Source Comments (unrecognize d section and content) In the event this informatio n is protected by the Federal Confidentiality of Alcohol and Drug Abuse Patient Records regulations: The Federal rules restrict any use of the information to criminally investigate or prosecute any alcohol or drug abuse patient.[facility] CenterIn the event this information is protected by the Federal Confidentiality of Alcohol and Drug Abuse Patient Records regulations: The Federal rules restrict any use of the information to criminally investigate or prosecute any alcohol or drug abuse patient.[facility] CenterIn the event this information is protected by the Federal Confidentiality of Alcohol and Drug Abuse Patient Records regulations: The Federal rules restrict any use of the information to criminally investigate or prosecute any alcohol or drug abuse patient.[facility] Reason for Visit (unrecogniz ed section and content) Reason Comments Cough Cough and congestion x 3 weeks Reason Comments Cough Cough, congestion, H A and stuffy nose x 4 days Specialty Diagnoses / Procedures Referred By Angie cole Referred To Contact Radiology / [facility] Diagnoses Foot pain, left Foot pain, left [M79.672] ROOM 10 Procedures X-RAY FOOT MINIMUM 3 VIEWS XR GENERAL 7 Kvng Gutiérrez APRN.PARK KEEPER [address] [place] [address] Radio [facility] [address] [place] [address] Referral ID Status Reason Start Date Expiration Date Visits Re quested Visits Authorized [id number] Closed 11/05/2020 11/05/2021 99 99 Care Teams (unrecognized sec tion and content) Flight Follower Relationship Specialty Start Date End Date Eliana Rivera DO PCP - General Family Medicine 07/14/16 Flight Follower Relationship Specialty Start Date End Date Eliana Rivera DO PCP - General Family Medicine 07/14/16 Team Status: Active Member Role Status Dates Dr. Eliana Rivera , DO Family Provider Active Dr. Nando Segovia , DO Primary Care Provider Active Team Status: Inactive Member Role Status Dates Dr. Eliana Rivera , DO Primary Care Provider, Refe rring Provider Active Nacho GONZALEZ, PA Attending Provider Active Team Status: Inactive Member Role Status Dates Dr. Eliana Rivera , DO Referring Provider Active Dr. Nando Segovia , DO Primary Care Provider, Attend ing Provider Active Team Status: Inactive Member Role Status Dates Dr. Nando R Brown , DO Primary Care Pr ovider, Attending Provider, Referring Provider Active Flight Follower Relationship Specialty Start Date End Date Eliana Rivera DO PCP - General Family Medicine 07/14/16 Team Status: Active Member Role Status Dates Dr. Nando Segovia DO Primary Care Provider Active Team Status: Inactive Member Role Status Dates Dr. Nando Segovia DO Primary Care Provider Active Start: May 28, 2024 End: May 28, 2024 Dr. Nando Segovia DO Attending Provider Active Start: May 28, 2024 End: May 28, 2024 Dr. Nando Segovia DO Referring Provider Active Start: May 28, 2024 End: May 28, 2024 Team Status: Inactive Member Role Status Dates Dr. Nando Segovia DO Primary Care Provider Active Start: June 04, 2024 End: June 04, 2024 Dr. Nando Segovia DO Attending Provider Active Start: June 04, 2024 End: June 04, 2024 Dr. Nando Segovia DO Referring Provider Active Start: June 04, 2024 End: June 04, 2024 Team Status: Inactive Member Role Status Dates Dr. Nando Segovia DO Primary Care Provider Active Start: June 10, 2024 End: June 10, 2024 Dr. Nando Segovia DO Referring Provider Active Start: June 10, 2024 End: June 10, 2024 Dr. Bob Gan MD Attending Provider Active Start: June 10, 2024 End: June 10, 2024 Team Status: Inactive Member Role Status Dates Dr. Nando Segovia DO Primary Care Provider Active Start: June 18, 2024 End: June 18, 2024 Dr. Bob Gan MD Attending Provider Active Start: June 18, 2024 End: June 18, 2024 Dr. Bob Gan MD Referring Provider Active Start: June 18, 2024 End: June 18, 2024 Team Status: Active Member Role Status Dates Dr. Nando Segovia DO Primary Care Provider Active Start: June 18, 2024 Dr. Bob Gan MD Attending Provider Active Start: June 18, 2024 Dr. Bob Gan MD Referring Provider Active Start: June 18, 2024 Dr. Bob Gan MD Other Provider Active Start: June 18, 2024 Team Status: Active Member Role Status Dates Dr. Nando Segovia DO Primary Care Provider Active Start: June 18, 2024 End: June 18, 2024 Dr. Octavio Santoyo MD Attending Provider Active Start: June 18, 2024 End: June 18, 2024 Dr. Aime Hoskins MD Referring Provider Active Start: June 18, 2024 End: June 18, 2024 Team Status: Inactive Member Role Status Dates Dr. Nanod Segovia DO Primary Care Provider Active Start: June 27, 2024 End: June 27, 2024 Dr. Nanod Segovia DO Referring Provider Active Start: June 27, 2024 End: June 27, 2024 Dr. Bob Gan MD Attending Provider Active Start: June 27, 2024 End: June 27, 2024 Team Status: Inactive Member Role Status Dates Dr. Nando Segovia DO Primary Care Provider Active Start: July 26, 2024 End: July 26, 2024 Dr. Bob Gan MD Attending Provider Active Start: July 26, 2024 End: July 26, 2024 Dr. Bob Gan MD Referring Provider Active Start: July 26, 2024 End: July 26, 2024 Team Status: Active Member Role Status Dates Dr. Nando Segovia DO Primary Care Provider Active Start: July 27, 2024 Dr. Bob Gan MD Attending Provider Active Start: July 27, 2024 Dr. Bob Gan MD Referring Provider Active Start: July 27, 2024 Team Status: Active Member Role Status Dates Dr. Nando Segovia DO Primary Care Provider Active Start: July 29, 2024 Dr. Bob Gan MD Attending Provider Active Start: July 29, 2024 Dr. Bob Gan MD Referring Provider Active Start: July 29, 2024 Team Status: Inactive Member Role Status Dates Dr. Nando Segovia DO Primary Care Provider Active Start: July 27, 2024 End: July 27, 2024 Dr. Bob Gan MD Attending Provider Active Start: July 27, 2024 End: July 27, 2024 Dr. Bob Gan MD Referring Provider Active Start: July 27, 2024 End: July 27, 2024 Team Status: Inactive Member Role Status Dates Dr. Nando Segovia DO Primary Care Provider Active Start: July 29, 2024 End: July 29, 2024 Dr. Bob Gan MD Attending Provider Active Start: July 29, 2024 End: July 29, 2024 Dr. Bob Gan MD Referring Provider Active Start: July 29, 2024 End: July 29, 2024 Team Status: Inactive Member Role Status Dates Dr. Nando Segovia DO Primary Care Provider Active Start: August 06, 2024 End: August 06, 2024 Dr. Bob Gan MD Attending Provider Active Start: August 06, 2024 End: August 06, 2024 Dr. Bob Gan MD Referring Provider Active Start: August 06, 2024 End: August 06, 2024 Goals (unrecognized section and content) Goals may be documented in a n alternate section FOR RECORDS PERTAINING TO PATIENTS WHO ARE [...] BE BASED ON THE PRIMARY CLINICAL RECORDS. [employer] provides no warranty or guarantee of the accuracy or completeness of information in this document.
[2024-09-27 08:49] LABS: Pathologist Review Will follow; Semen Analysis Post Vas ABSENT
== END | disposition home or self-care (01) ==
LOC: LABSPEC 06:42
PROVIDERS: PCP Family Medicine; Referring Provider Surgery; Visit Provider Surgery
DX: Z98.52 Vasectomy status (principal)
CPT/HCPCS: 89321

== ENCOUNTER 2024-12-21 10:08 | Emergency (ER) | payer OTHER, SELFPAY ==
[2024-12-21 10:09] VITALS: BP 146/87; PULSE 74; RESP 20; TEMP 36.9; O2SAT 100
--- OUTSIDE RECORDS SUMMARY | 2024-12-21 10:28 | XMS RPT_ITS | CCD ---
Author Organization [facility]ini[facility] Care Team Providers Care Party Coordinator Name Role Phone DR ELIANA RIVERA DO Primary Care Physician [phone] Eliana Rivera DO Primary Care Provider ELIANA RIVERA Primary Care Unavailable ELIANA RIVERA Primary Care Unavailable Dr. Eliana Rivera Primary Care Provider [phone] Dr. Eliana Rivera Referring Provider LISA Chavez Attending Provider Dr. Nando Segovia Primary Care Provider [phone] Dr. Nando Segovia Attending Provider [phone] Eliana Rivera DO Primary Care Provider [phone] Dr. Nando Segovia DO Primary Care Provider Dr. Nando Segovia DO Attending Provider [phone] Dr. Nando Segovia DO Referring Provider Dr. Bob Gan MD Attending Provider Dr. Bob Gan MD Referring Provider Elvia RICHMOND, Dr. Rojas Other Provider Dr. Octavio Santoyo MD Attending Provider Aidee RICHMOND, Dr. Salomon Referring Provider Dr. Nando Segovia DO Primary Care Provider Dr. Nando Segovia DO Attending Provider Dr. Nando Segovia DO Referring Provider Braeden Mhoan Attending Unavailable Brown, Nando R Primary Care Unavailable Brown, Nando R Primary Care Unavailable Calabretta, Bob Referring Unavailable Calabretta, Bob Attending Unavailable Brown, Nando R Primary Care Unavailable Calabretta, Bob Attending Unavailable Calabretta, Bob Referring Unavailable Brown, Nando R Primary Care Unavailable Calabretta, Bob Attending Unavailable Calabretta, Bob Referring Unavailable Brown, Nando R Primary Care Unavailable Brown, Nnado R Referring Unavailable Calabretta, Bob Attending Unavailable Brown, Nando R Primary Care Unavailable Brown, Nando R Referring Unavailable Brown, Nando R Attending Unavailable Brown, Nando R Primary Care Unavailable Octavio Santoyo Attending Unavailable Aime Hoskins Referring Unavailable Brown, Nando R Primary Care Unavailable Calabretta, Bob Consulting Unavailable Calabretta, Bob Referring Unavailable Calabretta, Bob Attending Unavailable Brown, Nando R Primary Care Unavailable Brown, Nando R Referring Unavailable Brown, Nando R Attending Unavailable Brown, Nando R Primary Care Unavailable Brown, Nando R Referring Unavailable Calabretta, Bob Attending Unavailable Brown, Nando R Primary Care Unavailable Calabretta, Bob Attending Unavailable Calabretta, Bob Referring Unavailable Brown, Nando R Primary Care Unavailable Brown, Nando R Referring Unavailable Brown, Nando R Attending Unavailable Brown, Nando R Primary Care Unavailable Calabretta, Bob Referring Unavailable Calabretta, Bob Attending Unavailable Brown, Nando R Primary Care Unavailable Calabretta, Bob Attending Unavailable Calabretta, Bob Referring Unavailable Allergies Allergy Classification Reported Allergen(s) Allergy Type Date of Onset Reaction(s) Facility (3 sources) environmental [Other] Propensity to adverse reactions 6 [facility] (1 source) OTHER; Translations: [OTHER] Propensity to adverse reactions (disorder) 6 [facility] Repository Medications Current Medications Medication Drug Class(es) Dates Sig (Normalized) Sig (Original) [id number] 200 actuat albuterol 0.09 mg/actuat metered dose [...] affected area twice daily. CPAP and supplies (5 sources) Start: 025 CPAP and supplies Active [...] Comment on above: Take 1 tablet by bogdan twice daily for 5 days. mometasone furoate 0.05 mg/actuat metered dose nasal spray (3 sources) Corticosteroid Start: 007 take 2 spray(s) nasal route once daily mometasone (NASONEX) 50 mcg/Actuation NASAL [place] Indications: Allergic rhinitis, cause unspecified 2 sprays in each nostril once a day 1 09/21/2006 Active Comment on above: 2 sprays in each nos tril once a day omeprazole 20 mg delayed release oral capsule (10 sources) Proton Pump Inhibitor Start: 016 take 1 capsule by mouth once daily Omeprazole 20 MG capsule,delayed release(DR/EC) Active 20 mg PO DAILY November 07, 2015 12:00am OMEPRAZOLE (PRIL OSEC ORAL) Take by mouth. Active OMEPRAZOLE (PRIL OSEC ORAL) Take by mouth. 0 Active Comment on above: Take by mouth. sildenafil 50 mg oral tablet (5 sources) Phosphodiesterase 5 Inhibitor Start: 05-28-2024 Sildenafil (Viagra) 50 mg tablet Active 50 mg PO daily as needed for sexual activity May 28, 2024 1:00am administer 30 minutes to 4 hours before activity Completed/Discontinued Medications Medication Drug Class(es) Dates Sig (Normalized) Sig (Original) acetaminophen 325 mg / HYDROcodone bitartrate 5 mg oral tablet (5 sources) Opioid Agonist Start: 4 End: 5 Hydrocodone-Acetamino phen 5-325 mg tablet Discontinued 1 {tbl} PO EVERY 6 HOURS NEEDED as needed for Pain 03 26November 04, 2023 May 28, 2024 5:15pm methylPREDNISolone 4 mg oral tablet (6 sources) Corticosteroid Start: 2 End: 4 take 1 tablet by mouth once Methylprednisolone (Medrol (Tony)) 4 mg tablets,dose pack Discontinued 0 PO per package directions April 07, 2022 1:00am May 30, 2023 5:35pm PO PER PKG DIR montelukast 10 mg oral tablet (6 sources) Leukotriene Receptor Antagonist Start: 9 End: 4 take 1 tablet by mouth once daily Montelukast 10 MG tablet Discontinued 10 mg PO DAILY July 22, 2018 12:00am May 30, 2023 5:37pm oxyCODONE hydrochloride 5 mg oral tablet (5 sources) Opioid Agonist Start: 5 End: 5 take 5-10 mg by mouth every four hours as needed for pain Oxycodone 5 mg Tablet Discontinued 5 - 10 mg PO EVERY 4 HOURS NEEDED as needed for Pain Score 4-10 14 5 June 18, 2024 June 27, 2024 3:26pm Problems Active Problems Problem Classification Problem Date Documented Date Episodic/Chronic Abdominal pain (7 sources) Flank pain; Translations: [Unspecified abdominal pain] 05-30-2023 Episodic Comment on above: UA and labs ordered to evaluate this. Administrative/social admission (7 sources) Administrative reason for encounter; Translations: [Encounter for other administrative examinations] 03-24-2023 Episodic Contraceptive and procreative management (17 sources) Patient encounter status; Translations: [Encounter for sterilization] Onset: 08-01-2024 06-27-2024 Episodic Immunizations and screening for infectious disease (6 sources) Contact with and (suspected) exposure to other viral communicable diseases; Translations: [Contact with or suspected exposure to other viral communicable disease] 04-07-2022 Episodic Other aftercare (10 sources) History of repair of umbilical hernia; Translations: [Encounter for follow-up examination after completed treatment for conditions other than malignant neoplasm] 06-27-2024 Episodic Other male genital disorders (9 sources) Male erectile dysfunction, unspecified; Translations: [Erectile dysfunction] 05-28-2024 Chronic Other male genital disorders (5 sources) Pain of left testicle; Translations: [Left testicular pain] 11-12-2023 Episodic Other nutritional; endocrine; and metabolic disorders (10 sources) History of clinical finding in subject; Translations: [Personal history of other endocrine, nutritional and metabolic disease] 05-30-2023 Episodic Other upper respiratory infections (1 source) Chronic sinusitis; Translations: [Chronic sinusitis, unspecified] Chronic Other upper respiratory infections (7 sources) Acute upper respiratory infection; Translations: [Acute upper respiratory infection, unspecified] 02-25-2023 Episodic Past or Other Problems Problem Classification Problem Date Documented Da te Episodic/Chronic Abdominal hernia (15 sources) Umbilical hernia; Translations: [Umbilical hernia without obstruction or gangrene] Onset: 07-02-2024 06-27-2024 Episodic Genitourinary symptoms and ill-defined conditions (10 sources) Increased frequency of urination; Translations: [Frequency of micturition] Onset: 06-19-2024 05-28-2024 Episodic Other male genital disorders (1 source) Left testicular pain; Translations: [Left testicular pain] Onset: 11-04-2023 Episodic Other nutritional; endocrine; and metabolic disorders (2 sources) Personal history of other endocrine, nutritional and metabolic disease; Translations: [Personal history of other endocrine, metabolic, and immunity disorders] Onset: 05-28-2024 05-30-2023 Episodic Results Test Name Value Interpretation Reference Range Facility L200.0900on 10-03-2024 PATH REV Reviewed [facility] Comment on above: Result Comment: NO I NTACT SPERMATAZOA OBSERVED. Ritu Cespedes MD 10/03/2024 AMENDED REPORT 10/03/24 1629 PATH REV previously reported as: Will follow Performed By: #### L 200.0900 #### [facility] [address] [place], [address] Review by pathologistOrdered By: Bob Gan on 09-27-2024 Pathologist review Sheldon (Unsp spec) [Interp] Will follow [facility] Spermatozoa detection in debbie en by light microscopy post vasectomyOrdered By: Bob Gan on 09-27-2024 Spermatozoa post vasectomy LM Ql (Debbie) ABSENT [facility] Comment on above: CYTOSPIN PREPARATION USED FOR CONCENTRATIONOF SPECIMEN PRIOR TO STAINING AND EXAMINATION L200.0900on 08-07-2024 PATH REV Normal [facility] Comment on above: Result Comment: Yonis Sims MD 08/07/24 Performed By: #### L 200.0900 ####[facility] [address] [place], [address] SEMEN POST VAS ABSENT [facility] Comment on above: Result Comment: CYTO SPIN PREPARATION USED FOR CONCENTRATION OF SPECIMEN PRIOR TO STAINING AND EXAMINATION Performed By: #### L 200.0900 ####[facility] [address] [place], [address] L350.1150on 08-06-2024 CYTOLOGY,SEMEN SEE PATHOLOGY REPORT [facility] Comment on above: Result Comment: Spec [...] MD 08/05/2024 Performed By: #### L 350.1150 #### [facility] [address] [place] [address], [address] Pathologist review Sheldon (Unsp spec) [Interp]Ordered By: Bob Gan on 08-06-2024 Semen Pathologist Review See comment [facility] Comment on above: Absent.Bethany RICHMOND 08/07/24 Review by pathologistOrdered By: Bob Gan on 08-06-2024 Pathologist review Sheldon (Unsp spec) [Interp] See comment [facility] Comment on above: Absent.Bethany RICHMOND 08/07/24 Spermatozoa detection in debbie en by light microscopy post vasectomyOrdered By: Bob Gan on 08-06-2024 Spermatozoa post vasectomy LM Ql (Debbie) ABSENT [facility] Comment on above: CYTOSPIN PREPARATION USED FOR CONCENTRATIONOF SPECIMEN PRIOR TO STAINING AND EXAMINATION Spermatozoa post vasectomy L M Ql (Debbie)Ordered By: Bob Gan on 08-06-2024 Post Vasectomy Sperm Presence ABSENT [facility] Comment on above: CYTOSPIN PREPARATION USED FOR CONCENTRATIONOF SPECIMEN PRIOR TO STAINING AND EXAMINATION Spermatozoa [Presence] in Se men by Light microscopy --post vasectomyOrdered By: oBb Gan on 07-29-2024 Spermatozoa post vasectomy LM Ql (Debbie) SEE PATHOLOGY REPORT [facility] Comment on above: Specimen submitted t o [...] SEE PATHOLOGY REPORT Edited by: MARIO on 08/06/24:1040The amended diagnosis was called to [...] revealing rare degenerated spermatozoa.Ritu Cespedes MD 08/05/2024 Spermatozoa post vasectomy L M Ql (Debbie)Ordered By: Bob Gan on 07-29-2024 Vasectomy Semen SEE PATHOLOGY REPORT [facility] Comment on above: Specimen submitted t [...] SEE PATHOLOGY REPORT Edited by: MARIO on 08/06/24:1040The amended diagnosis was called to [...] 08/05/2024 L350.1150on 07-26-2024 CYTOLOGY,SEMEN SEE PATHOLOGY REPORT [facility] Comment on above: Order Comment: Reaso n for Exam: sterilization Result Comment: Spec imen submitted to Anatomical Pathology Department for testing. Slide has been reviewed by Dr. Cespedes. No spermatozoa identified. Ritu Cespedes MD 07/26/2024 AMENDED REPORT 07/26/24 1459 CYTOLOGY,SEMEN previously reported as: SEE PATHOLOGY REPORT Specimen submitted to Anatomical Pathology Department for testing. Performed By: #### L 350.1150 ####[facility] [address] [place], [address] Spermatozoa [Presence] in Se men by Light microscopy --post vasectomyOrdered By: Bob Gan on 07-26-2024 Spermatozoa post vasectomy LM Ql (Debbie) SEE PATHOLOGY REPORT [facility] Comment on above: Specimen submitted t o Anatomical Pathology Department for testing. Slide has been reviewed by Dr. Cespedes.No spermatozoa identified.Ritu Cespedes MD 07/26/2024Previous reported result: SEE PATHOLOGY REPORT Edited by: MARIO on 07/26/24:1459 AMENDED REPORT 07/26/24 1459 CYTOLOGY,SEMEN previously reported as: SEE PATHOLOGY REPORT Specimen submitted to Anatomical Pathology Department for testing. Spermatozoa post vasectomy L M Ql (Debbie)Ordered By: Bob Gan on 07-26-2024 Vasectomy Semen SEE PATHOLOGY REPORT [facility] Comment on above: Specimen submitted t o Anatomical Pathology Department for testing. Slide has been reviewed by Dr. Cespedes.No spermatozoa identified.Ritu Cespedes MD 07/26/2024Previous reported result: SEE PATHOLOGY REPORT Edited by: MARIO on 07/26/24:1459 AMENDED REPORT 07/26/24 1459 CYTOLOGY,SEMEN previously reported as: SEE PATHOLOGY REPORT Specimen submitted to Anatomical Pathology Department for testing. Surgery Visit Reporton 06-27 Surgery Visit Report [facility] [address] [place] [address] OFFICE VISIT Date of Service: 06/27/24 MR#: [id number] Acct: [id number] Name: JAZIEL MARKS Rep #: [id number] : 1980 Provider: Dr. Bob zimmerman MD Age/Sex: 44/M Location: [facility] Status: Signed Intake Vital Signs 06/18/24 10:53 [...] S/P umbilical hernia repair, follow-up exam Z09 [facility] Medical History (Updated 06/27/24 @ 14:27 by [...] 4 current occupational status: employed current occupation: [employer] pets and animals: Yes pets and animals: [...] to full activity in 2 weeks. Bob Gan MD Pager: [facility] [address] [place] [address], [address] [place] [address] Office: 06/27/24 5293 Date Bob Stevens Signature: Date (if applicable) CC: Normal [facility] 12 Lead EKGon 06-18-2024 12 Lead EKG [facility] [address] [place] [address] 12 Lead EKG 06/18/24 1102 MR#: [id number] Acct: [id number] Name: JAZIEL MARKS Rep #: [id number] : 1980 44 From: Octavio Santoyo MD Attending Dr: Dr. Bob Gan MD Status: [facility] Ordering Dr: Aime Hoskins MD Date: 06/18/24 Location: [facility] Sex: M C Admitted: Test Reason : [...] was found Confirmed by Octavio Santoyo ([id number]), news assignment editor GILBERT HEBERT ([id number]) on 06/20/2024 9:26:16 AM Referred By: Bob Gan Confirmed By: Octavio Santoyo 06/20/24 0926 Octavio Santoyo MD CC: Dr. Aime Hoskins MD; Dr. Bob Gan MD; Dr. Nando Segovia, DO Signed [facility] Automated blood erythrocyte countOrdered By: Aime Hoskins on 06-18-2024 RBC (Bld) [#/Vol] 5.10 10*6/uL Normal 4.6-6.2 [facility] Comment on above: Performed By: #### L 100.0500 #### [facility] [address] [place], [address] Automated blood hematocrit ( percentage)Ordered By: Aime Hoskins on 06-18-2024 Hematocrit (Bld) [Volume fraction] 43.8 % Normal 40-54 [facility] Comment on above: Performed By: #### L 100.0500 #### [facility] [address] [place], [address] CBC-Complete Blood Cnt No Di ffon 06-18-2024 RDW SD 40.6 fl Normal 35.1-43.9 [facility] Comment on above: Performed By: #### L 100.0500 #### [facility] [address] [place], [address] Discharge Instructionon 05-26 Discharge Instruction [facility] Medical Records Department [address] [place] [address] Instructions for Home/Discharge Instructions 06/18/24 1235 MR#: [id number] Acct: [id number] Name: JAZIEL MARKS Rep #: [id number] : 1980 44 From: Bob Gan MD PCP: Dr. Nando Segovia, DO Status:REG [facility] Discharge Instructions Procedure Hernia Diet Discharge Diet: [...] to schedule 2 week follow up appointment. [phone] Test Results: Test results from this visit will be discussed in further detail at your follow-up appointment, if applicable. Discharge Plan Admission Attending Provider: Bob Gan Primary Care Provider: Nando Segovia Instructions Print Language: Cape Verdean Discharge Orders/Prescriptions Prescriptions: New oxycodone 5 mg [...] can be placed): Home, Self Care 06/18/24 1237 Bob Gan MD CC: Dr. Nando Segovia DO Signed [facility] Erythrocyte distribution wid th (RBC) [Ratio]Ordered By: Aime Hoskins on 06-18-2024 Erythrocyte distribution width (RBC) [Entitic vol] 40.6 fL 35.1-43.9 [facility] Erythrocyte distribution wid th ratioOrdered By: Aime Hoskins on 06-18-2024 Erythrocyte distribution width (RBC) [Ratio] 13.1 % Normal 11.6-14.6 [facility] Comment on above: Performed By: #### L 100.0500 #### [facility] [address] [place], [address] Erythrocyte distribution wid th standard deviationOrdered By: Aime Hoskins on 06-18-2024 Erythrocyte distribution width (RBC) [Ratio] 40.6 fl 35.1-43.9 [facility] Hemoglobin measurementOrdere d By: Aime Hoskins on 06-18-2024 Hemoglobin (Bld) [Mass/Vol] 14.2 g/dL Normal 13.0-16.5 [facility] Comment on above: Performed By: #### L 100.0500 #### [facility] [address] [place], [address] MCV (mean corpuscular volume ) determinationOrdered By: Aime Hoskins on 06-18-2024 MCV (RBC) [Entitic vol] 85.9 fL Normal 80-94 [facility] Comment on above: Performed By: #### L 100.0500 #### [facility] [address] [place], [address] MR/POSTOP.ANEon 06-18-2024 MR/POSTOP.[facility] Medical Records Department [address] [place] [address] Anesthesia Postop Eval I 06/18/24 1233 MR#: [id number] Acct: [id number] Name: JAZIEL MARKS Rep #: [id number] : 1980 44 From: Zahida Pink PCP: Dr. Nando Segovia, DO Status:REG SDC Y Race: C Location: [place] [address] Anesthesia: Postop Eval I Current Vital Signs [...] Zahida Damonigner Signature: Date CC: Signed [facility] MR/NZQPOIVP2ly 06-18-2024 [facility] Medical Records Department [address] [place] [address] Anesthesia Postop Eval II 06/18/24 1854 MR#: [id number] Acct: [id number] Name: JAZIEL MARKS Rep #: [id number] : 1980 44 From: Aime Hoskins MD PCP: Dr. 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 CRIMPING.GDOTT Spontaneous unlabored Yes 06/18/24 12:41 LOADING UNIT OPERATOR CRIMPING.GDOTT respirations Mental status Awake,Calm 06/18/24 12:41 LOADING UNIT OPERATOR CRIMPING.GDOTT nausea No 06/18/24 12:41 LOADING UNIT OPERATOR CRIMPING.GDOTT Vomiting No 06/18/24 12:41 LOADING UNIT OPERATOR CRIMPING.GDOTT Anesthesia Postop Eval I: Fluid Summary Crystalloid volume administer 500 06/18/24 12:41 LOADING UNIT OPERATOR CRIMPING.GDOTT (ml) Colloids volume administered ( ml) Blood Product volume administered (ml) Total IV fluid infused 500 06/18/24 12:41 LOADING UNIT OPERATOR CRIMPING.GDOTT Anesthesia Postop Eval I: Summary Notes Anesthesia Complication No 06/18/24 12:41 LOADING UNIT OPERATOR CRIMPING.GDOTT Anesthesia Complication Comment: Post-operative progress note Anesthesia: Postop Eval II Evaluation Mental status: Awake and Calm Pain Level: 1 nausea: No Vomiting: No Complications Anesthesia Complication: No 06/18/24 1854 Date Aime Stevens Signature: Date CC: Signed [facility] Mean corpuscular hemoglobin (MCH) determinationOrdered By: Aime Hoskins on 06-18-2024 MCH (RBC) [Entitic mass] 27.8 pg Normal 27.0-32.0 [facility] Comment on above: Performed By: #### L 100.0500 #### [facility] [address] [place], [place], [address] Mean corpuscular hemoglobin concentration (MCHC) determinationOrdered By: Aime Hoskins on 06-18-2024 MCHC (RBC) [Mass/Vol] 32.4 g/dL Normal 32-36 [facility] Comment on above: Performed By: #### L 100.0500 #### [facility] [address] [place], [address] Mean platelet volume determi nationOrdered By: Aime Hoskins on 06-18-2024 Platelet mean volume (Bld) [Entitic vol] 9.6 fL Normal 6.2-12.0 [facility] Comment on above: Performed By: #### L 100.0500 #### [facility] [address] [place], [place], [address] Operative Reporton 5 Operative Report [facility] Records Department [address] [facility] [place] [address] Operative Report 06/18/24 1231 MR#: [id number] Acct: [id number] Name: JAZIEL MARKS Rep #: [id number] : 1980 44 From: Bob Gan MD PCP: Dr. Nando Segovia, DO Status:REG [facility] Location: [place] [address] Operative Report (Standard) Operative Information Date of Procedure: 06/18/24 Pre-Operative Diagnosis: 1. Umbilical hernia 2. Request for sterilization via vasectomy Post-Operative Diagnosis: Same Surgery/Procedure Performed: 1. Umbilical hernia repair 2. 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 Nando Segovia DO Signed [facility] Platelet countOrdered By: Leann on 06-18-2024 Platelets (Bld) [#/Vol] 284 10*3/uL Normal 150-450 [facility] Comment on above: Performed By: #### L 100.0500 #### [facility] [address] [place], [address] Surgery Specimen Level IIon 06-18-2024 Surgery Specimen Level II ---- Patient Age/Sex Location Account Attending Physician ---- JAZIEL MARKS 44/M [facility] [id number] Dr. Bob Gan MD ---- Specimen: [id number] Received: 06/18/24 Status: HARISH Calles Num: [id number] Spec Type: VAS Subm Dr: Dr. Bob [...] segment of vas deferens, no pathologic diagnosis. SJ:mr 06/20/2024 MICROSCOPIC DESCRIPTION Slides are reviewed. GROSS [...] and submitted entirely in one cassette. / SJ:mr 06/19/2024 TC:4 CPT: 66612 x2 ---- Patient Age/Sex Location Account Attending Physician ---- JAZIEL MARKS 44/M [facility] [id number] Dr. Bob Gan MD ---- Signed (signature on file) Dr. Sam Salazar MD 06/20/24 1355 ---- Normal [facility] Comment on above: Performed By: #### P JAMES ####[facility] [address] [place], [address] White blood cell (WBC) count Ordered By: Aime Hoskins on 06-18-2024 WBC (Bld) [#/Vol] 6.9 10*3/uL Normal 4.4-11.0 [facility] Comment on above: Performed By: #### L 100.0500 #### [facility] [address] [place], [place], [address] Surgery Visit Reporton 06-10 Surgery Visit Report [facility] [address] [place] [address] OFFICE VISIT Date of Service: 06/10/24 MR#: [id number] Acct: [id number] Name: JAZIEL MARKS Rep #: [id number] : 1980 Provider: Dr. Bob zimmerman MD Age/Sex: 44/M Location: [facility] Status: Signed Intake Vital Signs 05/28/24 16:10 [...] 4 current occupational status: employed current occupation: [employer] pets and animals: Yes pets and animals: [...] I discussed (more content not included)... Normal [facility] Diagnostic total prostate sp ecific antigen (PSA) measurementOrdered By: Nando Segovia on 06-04-2024 Prostate Specific Antigen Total 0.86 ng/mL 0.0-4.0 [facility] Comment on above: This test was perfor med using the TPSA assay method for [employer] chemistry system. Values obtained with differentassay methods cannot be used interchangably.When changing PSA assays in the course of monitoring apatient, additional sequential testing should be carriedout to confirm baseline values. Hemoglobin A1con 06-04-2024 HbA1c (Bld) [Mass fraction] 6.2 % High 3.8-5.6 [facility] Comment on above: Result Comment: Norm al < 5.7 % Prediabetic 5.7 - 6.4 % Diabetic >or= 6.5 % Please note range changes. Performed By: #### L 065.1252, L578.8471 #### [facility] [address] [place], [place], [id number] Hemoglobin A1c percentageOrd ered By: Nando Segovia on 06-04-2024 HbA1c (Bld) [Mass fraction] 6.2 % High 3.8-5.6 [facility] Comment on above: Normal < 5.7 % Predi abetic 5.7 - 6.4 % Diabetic >or= 6.5 % Please note range changes. PSA,Total- Diagnosticon 05-25 PSA, DIAGNOSTIC 0.86 ng/mL Normal 0.0-4.0 [facility] Comment on above: Result Comment: This test was performed using the TPSA assay method for the VGBio chemistry system. Values obtained with different assay methods cannot be used interchangably. When changing PSA assays in the course of monitoring a patient, additional sequential testing should be carried out to confirm baseline values. Performed By: #### L 501.9940, L501.9985 #### [facility] [address] [place], [address] Internal Medicine Office Vis iton 05-28-2024 Internal Medicine Office Visit [facility] [address] [place] [address] [place] [address] OFFICE VISIT Date of Service: 05/28/24 MR#: [id number] Acct: [id number] Name: JAZIEL MARKS Rep #: [id number] : 1980 Provider: Dr. 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 Required: No Accompanied by: Self Is patient [...] for 6 years no pain or issues [facility] Medical History Sleep apnea Asthma Chronic migraine Skin cancer Contact with and (suspected) exposure to other viral communicable diseases Acute pharyngitis, unspecified Surgical History S/P skin biopsy Family History Grandfather Parkinson disease Social History adopted: No household members: spouse and children number of children: 4 current occupational status: employed current occupation: [employer] pets and animals: Yes pets and animals: [...] Inspection: nor (more content not included)... Normal [facility] Emergency Department Summary on 11-04-2023 Emergency Department Summary [facility] Medical Records Department [address] [place] [address] Emergency Department Summary 11/04/23 MR#: [id number] Acct: [id number] Name: JAZIEL MARKS Rep #: [id number] : 1980 43 From: Braeden Mohan MD [...] on the floor secondary to the pain. [facility] Medical History (Updated 11/04/23 @ 13:25 by [...] 4 current occupational status: employed current occupation: [employer] pets and animals: Yes pets and animals: [...] was g (more content not included)... Normal [facility] Testicular with Arterial Rigo won 11-04-2023 Testicular with Arterial Flow [facility] Imaging Services [address] [place], [place] [id number] Testicular with Arterial Flow MR#: [id number] Acct: [id number] Name: JAZIEL MARKS TEZ Rep #: [id number] : 1980 M 43 From: Michael Mendez PCP: Dr. Nando Segovia, DO Status: REG ER Study: Testicular with Arterial Flow Date of Exam: Exam# [id number] Ordering Dr: Braeden Mohan [place] [id number] INDICATION: left testicle/groin pain EXAMINATION: Ultrasound US [...] Braeden Mohan MD; Dr. Nando Segovia DO Special Library Librarian: Signed Normal [facility] Urinalysis, Completeon 11-03 BACTERIA 0 SEEN Normal None Seen [facility] Comment on above: Order Comment: DEBORAH CTOR TO SPECIFY Performed By: #### L 400.0001 #### [facility] [address] [place], [address] EPI,SQUAMOUS 0 SEEN Normal 0-5 [facility] Comment on above: Order Comment: DEBORAH CTOR TO SPECIFY Performed By: #### L 400.0001 #### [facility] [address] [place], [address] Mucus Ql (Urine sed) 0 SEEN Normal [facility] Comment on above: Order Comment: DEBORAH CTOR TO SPECIFY Performed By: #### L 400.0001 #### [facility] [address] [place], [address] RBC 0 SEEN Normal 0-5 [facility] Comment on above: Order Comment: DEBORAH CTOR TO SPECIFY Performed By: #### L 400.0001 #### [facility] [address] [place], [address] WBC 0 SEEN Normal 0-5 [facility] Comment on above: Order Comment: DEBORAH CTOR TO SPECIFY Performed By: #### L 400.0001 #### [facility] [address] [place], [address] Absolute lymphocyte countOrd ered By: Nando Segovia on 05-30-2023 Lymphocytes Auto (Unsp spec) [#/Vol] 3.13 10*3/uL 0.83-4.51 [facility] Automated lymphocyte count a s percentage of total leukocytesOrdered By: Nando Segovia on 05-30-2023 Lymphocytes/100 WBC Auto (Unsp spec) 35.4 % 19-41 [facility] Basophil percentageOrdered B y: Nando Segovia on 05-30-2023 Basophil percentage 0.75 ng/mL 0.0-4.0 [facility] Comment on above: This test was perfor med using the TPSA assay method for theVGBio chemistry system. Values obtained with differentassay methods cannot be used interchangably.When changing PSA assays in the course of monitoring apatient, additional sequential testing should be carriedout to confirm baseline values. Basophils/100 WBC (Bld) 0.6 % 0-1 [facility] Bilirubin [Mass/Vol] 0.70 mg/dL 0.20-1.00 [facility] Comment on above: For patients on eltr ombopag therapy, use of Dimension [place] TBIL is not recommended. Chloride [Moles/Vol] 105 mmol/L 98-107 [facility] Cholesterol [Mass/Vol] 162 mg/dL <200 [facility] Comment on above: <200 mg/dL Desirable 200-240 mg/dL Borderline >240 mg/dL High Risk Eosinophils/100 WBC (Bld) 2.9 % 0-5 [facility] Glucose [Mass/Vol] 96 mg/dL 74-106 [facility] Hemoglobin (Bld) [Mass/Vol] 14.1 g/dL 13.0-16.5 [facility] Monocytes/100 WBC (Bld) 5.5 % 0-10 [facility] Neutrophils (Bld) [#/Vol] 4.9 10*3/uL 2.0-7.7 [facility] Neutrophils/100 WBC (Bld) 55.4 % 47-70 [facility] Potassium [Moles/Vol] 3.9 mmol/L 3.5-5.1 [facility] Protein [Mass/Vol] 7.4 g/dL 6.4-8.2 [facility] Sodium [Moles/Vol] 135 mmol/L 136-145 [facility] Triglyceride [Mass/Vol] 121 mg/dL <199 [facility] Comment on above: The drugs N-Acetylcy steine and Metamizole may falsely depress this assay.Serum Triglycerides Reference Interval Normal <150 mg/dL Borderline high 150 - 199 mg/dL High 200 - 499 mg/dL Very High > or = 500 mg/dL WBC (Bld) [#/Vol] 8.9 10*3/uL 4.4-11.0 [facility] Basophil percentage 0 SEEN /hpf 0-5 [facility] Bilirubin Test strip Ql (U)O rdered By: Nando Segovia on 05-30-2023 Bilirubin Ql (U) Negative Negative [facility] Determination of erythrocyte mean corpuscular volume (MCV)Ordered By: Nando Segovia on 05-30-2023 MCV (RBC) [Entitic vol] 85.2 fL 80-94 [facility] Erythrocyte distribution wid th ratioOrdered By: Nando Segovia on 05-30-2023 Erythrocyte distribution width (RBC) [Ratio] 13.3 % 11.6-14.6 [facility] Erythrocyte distribution wid th standard deviationOrdered By: Nando Segovia on 05-30-2023 Erythrocyte distribution width (RBC) [Entitic vol] 41.3 fL 35.1-43.9 [facility] Hematocrit Auto (Bld) [Volum e fraction]Ordered By: Nando Segovia on 05-30-2023 Hematocrit (Bld) [Volume fraction] 44.5 % 40-54 [facility] Immature granulocytes/100 WB C Auto (Bld)Ordered By: Nando Segovia on 05-30-2023 Immature granulocytes/100 WBC (Bld) 0.200 % 0.0-0.9 [facility] Comment on above: IG% - Immature Granu locytes (promyelocytes, myelocytes and metamyelocytes) > 1% indicates that a LEFT SHIFT is Present. Ketones Test strip Ql (U)Ord ered By: Nando Segovia on 05-30-2023 Ketones Ql (U) Negative Negative [facility] - Chemistry and C hemistry - challengeOrdered By: Nando Segovia on 05-30-2023 Albumin/Globulin [Mass ratio] 1.3 {ratio} 0.9-2.4 [facility] ALP [Catalytic activity/Vol] 75 U/L 45-117 [facility] ALT [Catalytic activity/Vol] 40 U/L 16-61 [facility] Cholesterol in HDL [Mass/Vol] 65 mg/dL >40 [facility] Comment on above: The drugs N-Acetylcy steine and Metamizole may falsely depress this assay. Reference Range HDL <40 mg/dL Low HDL Cholesterol HDL >or= 60 mg/dL High HDL Cholesterol Cholesterol in LDL [Mass/Vol] 73 mg/dL 0-130 [facility] CO2 [Moles/Vol] 29.0 mmol/L 21.0-32.0 [facility] Globulin (S) [Mass/Vol] 3.2 g/dL 2.2-4.2 [facility] Urea nitrogen/Creatinine [Mass ratio] 15.1 mg/mg 10-20 [facility] - Hematology and Cell countsOrdered By: Nando Segovia on 05-30-2023 MCH (RBC) [Entitic mass] 27.0 pg 27.0-32.0 [facility] MCHC (RBC) [Mass/Vol] 31.7 g/dL 32-36 [facility] Nucleated RBC/100 WBC (Bld) [Ratio] 0 % 0-5 [facility] Platelet mean volume (Bld) [Entitic vol] 9.2 fL 6.2-12.0 [facility] Platelets (Bld) [#/Vol] 295 10*3/uL 150-450 [facility] Mucus LM Ql (Urine sed)Order ed By: Nando Segovia on 05-30-2023 Mucus Ql (Urine sed) 0 SEEN /hpf [facility] Nitrite Test strip Ql (U)Ord ered By: Nando Segovia on 05-30-2023 Nitrite Ql (U) Negative Negative [facility] No Panel InformationOrdered By: Nando Segovia on 05-30-2023 Estimated GFR (MDRD) Amer 98 mL/min >60 [facility] Comment on above: GFR Calc Estimated GFR (MDRD) Non-Af Amer 81 mL/min >60 [facility] Comment on above: Non- GFR Calc VLDL Cholesterol 24 mg/dL 5-40 [facility] Urine RBC 0-5 SEEN /hpf 0-5 [facility] Protein Test strip Ql (U)Ord ered By: Nando Segovia on 05-30-2023 Protein Ql (U) Negative Negative [facility] RBC Auto (Bld) [#/Vol]Ordere d By: Nando Segovia on 05-30-2023 RBC (Bld) [#/Vol] 5.22 10*6/uL 4.6-6.2 [facility] Serum or plasma calcium aleena urement (mass/volume)Ordered By: Nando Segovia on 05-30-2023 Calcium [Mass/Vol] 9.4 mg/dL 8.5-10.1 [facility] Serum or plasma creatinine m easurement (mass/volume)Ordered By: Nando Segovia on 05-30-2023 Creatinine [Mass/Vol] 1.06 mg/dL 0.70-1.30 [facility] Comment on above: The validity of the calculated GFR & GFRAA in patients over 70 years has not been determined. Clinical correlation is essential. Serum or plasma urea nitroge n measurement (mass/volume)Ordered By: Nando Segovia on 05-30-2023 Urea nitrogen [Mass/Vol] 16 mg/dL 7-18 [facility] Squamous epithelial cells de tection in urine sediment by light microscopyOrdered By: Nando Segovia on 05-30-2023 Epithelial cells.squamous LM Ql (Urine sed) 0-5 SEEN /hpf 0-5 [facility] Thin prep Papanicolaou smear with manual screeningOrdered By: Nando Segovia on 05-30-2023 Thin prep Papanicolaou smear with manual screening 4.2 g/dL 3.2-5.0 [facility] Thin prep Papanicolaou smear with manual screening 18 U/L 15-37 [facility] Thin prep Papanicolaou smear with manual screening 1 5-15 [facility] Urine blood detectionOrdered By: Nando Segovia on 05-30-2023 RBC Ql (U) 10 /ul Negative [facility] Urine clarityOrdered By: Joon Segovia on 05-30-2023 Clarity (U) Clear Clear [facility] Urine color determinationOrd ered By: Nando Segovia on 05-30-2023 Color (U) Yellow Yellow [facility] Urine glucose detectionOrder ed By: Nando Segovia on 05-30-2023 Glucose Ql (U) Normal mg/dl Normal [facility] Urine leukocyte esterase det ection by dipstickOrdered By: Nando Segovia on 05-30-2023 Leukocyte esterase Test strip Ql (U) Negative Negative [facility] Urine pHOrdered By: Nando Segovia on 05-30-2023 pH (U) 7.0 [pH] 5.0 - 8.0 [facility] Urine sediment bacteria coun t by microscopy (number/high power field)Ordered By: Nando Segovia on 05-30-2023 Bacteria LM.HPF (Urine sed) [#/Area] 0 /[HPF] None Seen [facility] Urine specific gravity measu rementOrdered By: Nando Segovia on 05-30-2023 Specific gravity (U) [Rel density] 1.010 1.002-1.030 [facility] Urine urobilinogen measureme ntOrdered By: Nando Segovia on 05-30-2023 Urobilinogen Ql (U) Normal mg/dl Normal [facility] Whole blood hemoglobin A1c/t otal hemoglobin ratio (mass fraction)Ordered By: Nando Segovia on 05-30-2023 HbA1c (Bld) [Mass fraction] 6.0 % 3.8-5.6 [facility] Comment on above: Normal < 5.7 % Predi abetic 5.7 - 6.4 % Diabetic >or= 6.5 % Please note range changes. CNOVon 02-25-2023 CNOV Office Visit ([facility] ) JAZIEL MARKS ([id number]) 1980 M Date Time Provider Department 02/25/23 9:15 AM THOMAS ARORA [facility] During your visit today, we recorded the following information about you: Temperature Pulse Respiration Blood pressure 99.3 degrees 88/minute 16/minute 132/84 Weight 107.4 kg Thomas Arora APRN.CNP 02/25/2023 9:43 AM Signed This note was created using NoteWriter. Subjective Jaziel Alexandra Marks is a 42 year old male. 42 year old male with PMH GERD presents for illness. Acute onset 4 days ago +sore throat +cough +congestion + headache +stuffy nose +body aches +chills Denies N/V/D Denies fever Has used Mucinex Ibuprofen Denies tobacco usage. The history is provided by the patient. No cold strip roller was used. Cough This is a new [...] on 11/05/2020) mometasone (NASONEX) 50 mcg/Actuation NASAL [place] 2 sprays in each nostril once a [...] Abdominal: Gener (more content not included)... Normal [facility] STREP A MOLECULAR (POC)on Procedural Control Valid [facility] Strep A (POCT) Negative Negative [facility] CNOVon 08-27-2022 CNOV Office Visit ([facility] ) JAZIEL MARKS ([id number]) 1980 M Date Time Provider Department 08/27/22 3:00 PM JEREMIE SANDERS [facility] During your visit today, we recorded the following information about you: Temperature Pulse Respiration Blood pressure 98.4 degrees 90/minute 16/minute 128/82 Weight 110.4 kg LISA Berry 08/27/2022 3:05 PM Signed This note was created using Splashscoreriter. Subjective Jaziel Marks is a 42 year [...] on 11/05/2020) mometasone (NASONEX) 50 mcg/Actuation NASAL [place] 2 sprays in each nostril once a [...] needed - mometasone (NASONEX) 50 mcg/Actuation NASAL [place] 2 sprays in each nostril once a day - Albuterol Sulfate (PROVENTIL HFA) 90 mcg/Actuation INHALATION HFAA 2 puffs every four hours as needed for (more content not included)... Normal [facility] XR ANKLE MINIMUM 3 VIEWS LEF Ton [...] Sign Date: 04/26/2021 4:20:49 PM Ordering Provider: DARA KHAN [facility] [place] XR FOOT MINIMUM 3 VIEWS LEFT on [...] Date: 04/26/2021 4:21:28 PM Ordering Provider: DARA KHAN [facility] XR Foot - left AP and Latera l and obliqueon 11-05-2020 IMPRESSION: Refer to the result. Special Library Librarian: PSCB Transcribe Date/Time: Nov 05 2020 7:13P Dictated by : LAURIE ROPER MD This examination was interpreted and the report reviewed and electronically signed by: LAURIE ROPER MD on Nov 05 2020 7:16PM [facility] DIVISION OF RADIOLOGY * * *Final [...] body is identified. DIVISION OF RADIOLOGY Provider, [facility] - 11/05/2020 * * *Final Report* [...] identified. IMPRESSION IMPRESSION: Refer to the result. Special Library Librarian: PSCB Transcribe Date/Time: Nov 05 2020 7:13P Dictated by : LAURIE ROPER MD This examination was interpreted and the report reviewed and electronically signed by: LAURIE ROPER MD on Nov 05 2020 7:16PM EST [facility] Radiology Study observation (narrative) [facility] XR Foot - left AP and Latera l and obliqueOrdered By: [facility]cf Provider on 11-05-2020 [facility] Vital Signs Date Time Vital Sign Value Performing Clinician Teeteei gregory 06-18-2024 14:48-0500 Body temperature 98.5 [degF] Dr. Nando Segovia DO Work Phone: [facility] 06-18-2024 14:48-0500 Diastolic blood pressure 78 mm[Hg] Dr. Nando Segovia DO Work Phone: [facility] 06-18-2024 14:48-0500 Heart rate 74 /min Dr. Nando Segovia DO Work Phone: [facility] 06-18-2024 14:48-0500 Respiratory rate 16 /min Dr. Nando Segovia DO Work Phone: [facility] 06-18-2024 14:48-0500 SaO2% (BldA) [Mass fraction] 98 % Dr. Nando Segovia DO Work Phone: [facility] 06-18-2024 14:48-0500 Systolic blood pressure 128 mm[Hg] Dr. Nando Segovia DO Work Phone: [facility] 06-18-2024 10:53-0500 Body height 175.[address] Nando Segovia DO Work Phone: [facility] 06-18-2024 10:53-0500 Body mass index (BMI) [Ratio] 35.4 kg/m2 Dr. Nando Segovia DO Work Phone: [facility] 06-18-2024 10:53-0500 Body weight [address] Nando Segovia DO Work Phone: [facility] 06-10-2024 14:16-0500 Body mass index (BMI) [Ratio] 36.6 kg/m2 Dr. Nando Segovia DO Work Phone: [facility] 06-10-2024 14:16-0500 Body temperature 97.2 [degF] Dr. Nando Segovia DO Work Phone: [facility] 06-10-2024 14:16-0500 Body weight 112.[address] Nando Segovia DO Work Phone: [facility] 06-10-2024 14:16-0500 Diastolic blood pressure 90 mm[Hg] Dr. Nando Segovia DO Work Phone: [facility] 06-10-2024 14:16-0500 Heart rate 72 /min Dr. Nando Segovia DO Work Phone: [facility] 06-10-2024 14:16-0500 Respiratory rate 18 /min Dr. Nando Segovia DO Work Phone: [facility] 06-10-2024 14:16-0500 SaO2% (BldA) [Mass fraction] 100 % Dr. Nando Segovia DO Work Phone: [facility] 06-10-2024 14:16-0500 Systolic blood pressure 147 mm[Hg] Dr. Nando Segovia DO Work Phone: [facility] 05-28-2024 16:10-0500 Body mass index (BMI) [Ratio] 36.6 kg/m2 Dr. Nando Segovia DO Work Phone: [facility] 05-28-2024 16:10-0500 Body temperature 96.1 [degF] Dr. Nando Segovia DO Work Phone: [facility] 05-28-2024 16:10-0500 Body weight 112.[address] Nando Segovia DO Work Phone: [facility] 05-28-2024 16:10-0500 Diastolic blood pressure 78 mm[Hg] Dr. Nando Segovia DO Work Phone: [facility] 05-28-2024 16:10-0500 Heart rate 104 /min Dr. Nando Segovia DO Work Phone: [facility] 05-28-2024 16:10-0500 Respiratory rate 18 /min Dr. Nando Segovia DO Work Phone: [facility] 05-28-2024 16:10-0500 SaO2% (BldA) [Mass fraction] 94 % Dr. Nando Segovia DO Work Phone: [facility] 05-28-2024 16:10-0500 Systolic blood pressure 132 mm[Hg] Dr. Nando Segovia DO Work Phone: [facility] 05-30-2023 16:40-0500 Body height 176.[address] Eliana Rivera Work Phone: [facility] 05-30-2023 16:40-0500 Body mass index (BMI) [Ratio] 35 kg/m2 Dr. Eliana Rivera Work Phone: [facility] 05-30-2023 16:40-0500 Body temperature 98.8 [degF] Dr. Eliana Rivera Work Phone: [facility] 05-30-2023 16:40-0500 Body weight 109.[address] Eliana Rivera Work Phone: [facility] 05-30-2023 16:40-0500 Diastolic blood pressure 80 mm[Hg] Dr. Eliana Rivera Work Phone: [facility] 05-30-2023 16:40-0500 Heart rate 78 /min Dr. Eliana Rivera Work Phone: [facility] 05-30-2023 16:40-0500 Respiratory rate 16 /min Dr. Eliana Rivera Work Phone: [facility] 05-30-2023 16:40-0500 SaO2% (BldA) [Mass fraction] 98 % Dr. Eliana Rivera Work Phone: [facility] 05-30-2023 16:40-0500 Systolic blood pressure 120 mm[Hg] Dr. Eliana Rivera Work Phone: [facility] 02-25-2023 09:16-0400 Body temperature 99.3 [degF] Thomas Arora NOUGAT CUTTER MACHINE.PORTFOLIO ASSISTANT Work Phone: [facility] 02-25-2023 09:16-0400 Body weight 107.41 kg Thomas Arora NOUGAT CUTTER MACHINE.PORTFOLIO ASSISTANT Work Phone: [facility] 02-25-2023 09:16-0400 Diastolic blood pressure 84 mm[Hg] Thomas Arora NOUGAT CUTTER MACHINE.PORTFOLIO ASSISTANT Work Phone: [facility] 02-25-2023 09:16-0400 Heart rate 88 /min Thomas Arora NOUGAT CUTTER MACHINE.PORTFOLIO ASSISTANT Work Phone: [facility] 02-25-2023 09:16-0400 Respiratory rate 16 /min Thomas Arora NOUGAT CUTTER MACHINE.PORTFOLIO ASSISTANT Work Phone: [facility] 02-25-2023 09:16-0400 SaO2% (BldA) [Mass fraction] 95 % Thomas Arora NOUGAT CUTTER MACHINE.PORTFOLIO ASSISTANT Work Phone: [facility] 02-25-2023 09:16-0400 Systolic blood pressure 132 mm[Hg] Thomas Arora NOUGAT CUTTER MACHINE.PORTFOLIO ASSISTANT Work Phone: [facility] 08-27-2022 14:54-0400 Body temperature 98.4 [degF] Jeremie GONZALEZ Work Phone: [facility] 08-27-2022 14:54-0400 Body weight 110.41 kg Krislyn Aberegg PA Work Phone: [facility] 08-27-2022 14:54-0400 Diastolic blood pressure 82 mm[Hg] Krislyn Aberegg PA Work Phone: [facility] 08-27-2022 14:54-0400 Heart rate 90 /min Krislyn Aberegg PA Work Phone: [facility] 08-27-2022 14:54-0400 Respiratory rate 16 /min Krislyn Aberegg PA Work Phone: [facility] 08-27-2022 14:54-0400 SaO2% (BldA) [Mass fraction] 96 % Krislyn Aberegg PA Work Phone: [facility] 08-27-2022 14:54-0400 Systolic blood pressure 128 mm[Hg] Krislyn Aberegg PA Work Phone: [facility] Encounters Encounter Date Encounter Type Care Provider Facility Start: 09-27-2024 End: 09-27-[address] Nando Segovia DO Work Phone: [facility] Work Phone: Start: 09-27-2024 End: 09-27-[address] Bob Gan MD -Laboratory Specimen Work Phone: Start: 09-27-2024 End: 09-27-2024 ambulatory Nando Segovia Facility:[facility] Start: 08-06-2024 End: 08-06-[address] Bob Gan MD -Laboratory, Specimen Work Phone: Start: 08-06-2024 End: 08-06-[address] Nando Segovia DO Work Phone: [facility] Work Phone: Start: 07-29-2024 End: 07-29-[address] Nando Segovia DO Work Phone: [facility] Work Phone: Start: 07-29-2024 End: 07-29-[address] Bob Gan MD -Laboratory, Specimen Work Phone: Start: 07-29-2024 End: 07-29-2024 ambulatory Nando Segovia Facility:[facility] Start: 07-27-2024 End: 07-27-[address] Nando Segovia DO Work Phone: [facility] Work Phone: Start: 07-27-2024 End: 07-27-[address] Bob Gan MD -Laboratory, Specimen Work Phone: Start: 07-26-2024 End: 07-27-[address] Nando Segovia DO Work Phone: [facility] Work Phone: Start: 07-26-2024 End: 07-26-[address] Bob Gan MD -Laboratory Work Phone: Start: 07-26-2024 End: 07-26-2024 ambulatory Nando Segovia Facility:[facility] Start: 07-02-2024 Encounter for other preprocedural examination Bob Gan [facility] Start: 06-27-2024 End: 06-27-[address] Bob Gan MD -[facility] Work Phone: Start: 06-27-2024 End: 06-27-2024 ambulatory Nando Segovia Facility:[facility] Start: 06-18-2024 End: 06-18-2024 Non-patient / Non-visit Dr. Octavio Santoyo MD -[facility] Work Phone: Start: 06-18-2024 End: 06-18-2024 Admission to same day surgery center Dr. Bob Gan MD [facility] Start: 06-18-2024 End: 06-18-2024 ambulatory Nando Segovia Facility:[facility] Start: 06-10-2024 End: 06-10-[address] Bob Gan MD -[facility] Work Phone: Start: 06-10-2024 End: 06-10-2024 ambulatory Nando Segovia [facility] Start: 06-04-2024 End: 06-04-[address] Nando Morris DO -Laboratory, [place] Start: 06-04-2024 End: 06-04-2024 ambulatory Nando Segovia Facility:[facility] Start: 05-28-2024 End: 05-28-[address] Nando Morris DO [facility] Work Phone: Start: 05-28-2024 End: 05-28-2024 ambulatory Nando Segovia [facility] Start: 05-01-2024 ambulatory Nando Segovia Facilit y:[facility] Start: 11-04-2023 End: 11-04-2023 Emergency department patient visit Braeden Mohan Facility:[facility] Start: 05-30-2023 End: 05-30-[address] Eliana Rivera Work Phone: [facility] Work Phone: Start: 05-30-2023 End: 05-30-[address] Eliana Rivera Work Phone: [facility] Internal Medicine Work Phone: Start: 05-30-2023 End: 05-30-[address] Eliana Rivera Work Phone: [facility] Start: 03-24-2023 End: 03-24-[address] Eliana Rivera Work Phone: [facility] Work Phone: Start: 02-25-2023 End: 02-25-2023 ambulatory ELIANA RIVERA Facility:[facility] Start: 02-25-2023 End: 02-25-2023 Patient encounter procedure Thomas Arora APRN.PORTFOLIO ASSISTANT Work Phone: [facility] Comment on above: URI, acute (Primary Dx) Start: 08-27-2022 End: 08-27-2022 ambulatory ELIANA RIVERA Facility:[facility] Start: 08-27-2022 End: 08-27-2022 Patient encounter procedure Jeremie GONZALEZ Work Phone: [facility] Comment on above: Sinobronchitis (Prim angelina Dx) Start: 04-26-2021 End: 04-26-[address] DARA KHAN DPM [facility] Start: 11-05-2020 End: 11-05-2020 Subsequent hospital visit by physician Xr [facility] Work Phone: Radiology Comment on above: Foot pain, left [M79 .672] Procedures Date Procedure Procedure Detail Performing Clinician Start: 06-04-2024 Assay of prostate sp ecific antigen total Dr. Nando Segovia DO Work Phone: Comment on above: This test was perfor med using the TPSA assay method for theVGBio chemistry system. Values obtained with differentassay methods cannot be used interchangably.When changing PSA assays in the course of monitoring apatient, additional sequential testing should be carriedout to confirm baseline values. Start: 02-25-2023 STREP A MOLECULAR (POC) Thomas Arora APRN.PORTFOLIO ASSISTANT Work Phone: Start: 11-05-2020 Radex foot complete minimum 3 views Kvng Gutiérrez APRN.PORTFOLIO ASSISTANT Work Phone: H/O: vasectomy S/P vasectomy Dr. Bbo Gan MD Plan of Treatment Date Care Activity Detail Author Start: 06-18-2024 Anesthesia hernia re pair upper abdomen nos ANES HRNA RPR UPR ABD NOS [facility] Start: 06-18-2024 RPR AA HRN 1ST < 3 CM RDC RPR AA HRN 1ST < 3 CM RDC [facility] Start: 06-18-2024 Vasectomy uni/bi spx w/postop semen exams REMOVAL OF SPERM DUCT(S) [facility] Start: [facility]-18-[facility] Start: 05-28-[facility]24 Patient referral [facility] Work Phone: Start: 12-24-2023 Covid-19 Vaccine ( season) Covid-19 Vaccine ( season) [facility] Start: 12-24-2023 Influenza vaccination Influenza Vacc ine (#1) [facility] Start: 12-23-[address] [facility] Start: 04-24-2022 DEPRESSION ASSESSMENT DEPRESSION ASS ESSMENT [facility] Start: 2014 Lipid 1996 panel - S jose miguel or Plasma Lipid Screening [facility] Start: 2014 Lipid panel Lipid Screening [facility] Start: 2014 LIPID SCREEN LIPID SCREEN [facility] Start: 1998 Urine microalbumin profile DTAP,TDAP,TD (1 - Tdap) [facility] Start: 08-27-1997 Urine microalbumin profile DTaP,Tdap,Td Vaccine (2 - Tdap) [facility] Start: 1997 Anxiety Screening Anxiety Screening [facility] Start: 1997 [facility]: 1997 HEPATITIS C SCREENING HEPATITIS C [facility] [place] Start: 1997 Hepatitis C screening Hepatitis C [facility] Start: 1997 HIV SCREENING HIV SCREENING [facility] Start: 1997 HIV screening HIV Screening [facility] Start: 1979 COVID-19 VACCINE (#1) COVID-19 VACCI NE (#1) [facility] Start: 1979 HEPATITIS B (1 of 3 - 3-dose series) HEPATITIS B (1 of 3 - 3-dose series) [facility] Patient referral [facility] Work Phone: [place] [Presenc e] in Semen by Light microscopy --post vasectomy [facility] Immunizations Immunization Date Immunization Notes Care Provider Lisa taylor 02-27-2016 influenza virus vaccine, unspecified formulation Thomas Arora APRN.CNP Work Phone: [facility] 01-24-2009 influenza virus vaccine, unspecified formulation Jeremie Sanders PA Work Phone: [facility] Work Phone: Payers Date Payer Category Payer Self-pay [id number] 2020 Unknown [employer] PPO [id number] 2020-Present [phone] [address] [place] [address] PPO [id number] 2009 Unknown [id number] Unknown [id number] Unknown [id number] Unknown [id number] Unknown [id number] Unknown [id number] Unknown [id number] Unknown [id number] Unknown [id number] Unknown [id number] Unknown [id number] [id number] Unknown [id number] [id number] Unknown [id number] Unknown [id number] [id number] Unknown [id number] Social History Date Type Detail Facility Never smoker [facility] [place] Start: 1979 Sex Assigned At Male A [facility] Start: 08-27-2022 End: 06-13-2024 Tobacco smoking status NHIS Never smoked tobacco [facility] Start: 04-24-2017 End: 08-27-2022 Tobacco use and exposure Smokeless tobacco non-user [facility] Start: 11-05-2020 End: 08-27-2022 Alcohol intake Current non-drinker of alcohol (finding) [facility] Start: 1980 Sex Assigned At Not on file [facility] Start: 11-05-2020 End: 02-25-2023 History of Social function [facility] Start: 11-05-2020 End: 02-25-2023 Tobacco use panel [facility] National Score (1-100), lower number is lower risk Not on file [facility] Start: 05-30-2023 Tobacco smoking stat us NHIS Unknown if ever smoked [facility] Start: 10-06-2020 End: 11-05-2020 Exposure to SARS-CoV-2 (event) Not sure [facility] Start: 07-31-2024 End: 08-08-2024 Sex Male (finding) [facility] Goals Date Patient Goal Desired Activity /State Mental Status Date Assessment Result Facility 06-18-2024 Cognitive function Voice/Name [facility] Work Phone: Clinical Notes 11-05-2020 to 06-18-2024 Note Date & Type Note Facility 06-18-2024 Note [facility] Medical Records Department [address] [place] [address] History Physical Exam 06/18/24 1100 MR#: [id number] Acct: [id number] Name: JAZIEL MARKS Rep #: [id number] : 1980 44 From: Bob Gan MD PCP: Dr. Nando Segovia, DO Status:[facility] Location: [place] [address]- History and Physical Date of Admission: 06/18/24 [...] sexual activity 05/28/24 5 Rx #7 tabs PFSH Medical History (Updated [...] 4 current occupational status: employed current occupation: [employer] pets and animals: Yes pets and animals: [...] General: cooperative Orientation: alert and oriented x3 HENKS Head: normal to inspection Neck Neck: normal [...] is over 1 (more content not included)... [facility] 06-10-2024 Evaluation note Diagnosis Onset Date Resolution Encounter for vasectomy acute June 10, 2:00pm Umbilical hernia resolved June 10, 2024 2:00pm S/P umbilical hernia repair, follow-up exam acute June 2:22pm S/P vasectomy acute June 27, 2024 2:22pm [facility] Work Phone: 1(410) 572-956902-04-2025 Evaluation note* Diagnosis Onset Date Resolution Status Admit Date Erectile dysfunction acute Febr uary 2024 4:06pm History of elevated glucose acute May 28, 2024 4:06pm Urinary frequency acute Februar y 2024 4:06pm Umbilical hernia resolved May 28, 2024 4:06pm Encounter for vasectomy acute F ebruary 2024 2:00pm Umbilical hernia resolved June 10, 2024 2:00pm S/P umbilical hernia repair, follow-up exam acute June 27, 2024 2:22pm S/P vasectomy acute June 27, 2024 2:22pm [facility] Work Phone: 1(540) 514-164211-04-2023 NoteHNO ID: [id number] Author: Thomas Arora APRN.[facility] Service: ? Author Type: Nurse Practitioner Type: [...] history is provided by the patient. No cold strip roller was used. Cough This is a new [...] on 11/05/2020) mometasone (NASONEX) 50 mcg/Actuation NASAL [place] 2 sprays in each nostril once a [...] or signs of inj (more content not included)...[facility]11-04-2023 History of Present illness Narrative* Thomas Arora APRN.[facility] - 02/25/2023 9:25 AM EDT This note was created using NoteWriter. Subjective Jaziel Marks is a 42 year old male. 42 year old male with PMH GERD presents for illness. Acute onset 4 days ago +sore throat +cough +congestion + headache +stuffy nose +body aches +chills Denies N/V/D Denies fever Has used Mucinex Ibuprofen Denies tobacco usage. The history is provided by the patient. No cold strip roller was used. Cough This is a new [...] on 11/05/2020) mometasone (NASONEX) 50 mcg/Actuation NASAL [place] 2 sprays in each nostril once a [...] - STREP A MOLECULAR (POC) Thomas Arora APRN.PORTFOLIO ASSISTANT documented in [facility] encounter[facility]23 NoteHNO ID: [id number] Author: LISA Berry Service: ? Author Type: Physician Director Of Food And Nutrition Services Type: Progress Notes Filed: 08/27/2022 3:05 PM [...] on 11/05/2020) mometasone (NASONEX) 50 mcg/Actuation NASAL [place] 2 sprays in each nostril once a [...] in detail warranting prompt ER evaluation. Jeremie Sanders, [facility]05-06-2023 History of Present illness Narrative* Jeremie Sanders, [place] - 08/27/2022 3:01 PM EDT This note was created using Splashscoreriter. Subjective Jaziel Marks is a 42 year [...] on 11/05/2020) mometasone (NASONEX) 50 mcg/Actuation NASAL [place] 2 sprays in each nostril once a [...] ER evaluation. LISA Berry documented [facility] History of Present illness Narrative* Vega Fenton [...] 05, 2020 6:29 PM documented [facility] note No data available for this section [facility] Evaluation note* Diagnosis Sinobronchitis- Primary Unspecified sinusitis (chronic) documented in this encounter [facility] note* Diagnosis URI, acute- Primary Acute upper respiratory infections of unspecified site documented in this encounter [facility] note* Diagnosis Onset Date Resolution Status 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 History of elevated glucose acute Physical exam acute Flank pain, chronic chronic [facility] Work Phone: Hospital Discharge instructions No data available for this section [facility] Reason for referral (narrative)No reason for referral information availableWUniversity [facility] Work Phone: Summary Purpose Family History No Family History Records Found Relationship Condition Age at Onset Recorded Date/T raisa grandfather Parkinson's disease Unknown Advance Directives No Advanced Directives Records Found Advance Directive Response Recorded Date/ Time Living Will No July 21, 2018 11:25pm Power of Electronic Science Teacher No July 21 11:25pm Advance Directive Response Recorded Date/ Time Living Will Yes June 13 4:12pm Do you have a Healthcare Power of Electronic Science Teacher? 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 EST NEW PT - PPW [...] 2024 4 :06pm Encounter for vasectomy June 10 025 2:00pm Umbilical hernia June 10, 2024 2:00pm S/P umbilical hernia repair, follow-up e xam June 27, 2024 2:22pm S/P vasectomy June 27, 2024 2:22 pm Chief Complaint Admit Date UMBILICAL HERNIA & VASECTOMY June 102024 2:00pm Hernia, Open Umbilical Repair w/ Mesh & vastectomy June 18, 2024 10:31am Hernia, Open Umbilical Repair w/ Mesh & vastectomy June 18, 2024 11:00am PREOP June 18, 2024 11:02am HERNIA / VASECTOMY 06-18June 27, 2024 2:22pm EORDERS July 26, 2024 9:04 am Reason for Visit Admit Date Encounter for vasectomy June 10 2:00pm Umbilical hernia June 10, 2024 2:00pm S/P umbilical hernia repair, follow-up e xam June 27, 2024 2:22pm S/P vasectomy June 27, 2024 2:22 pm Additional Source Comments (unrecognized sect ion and content) No Status Records FoundNo Status Records FoundNo Status Records Found INFORMATION SOURCE (unrecogn ized section and content) DATE CREATED AUTHOR 04/27/2021 [facility] ([place]) DATE CREATED AUTHOR AUTHOR'S ORGANIZ ATION 02/26/2023 [facility] DATE CREATED AUTHOR AUTHOR'S ORGANIZ ATION 10/06/2024 [facility] Source Comments (unrecognize d section and content) In the event this informatio n is protected by the Federal Confidentiality of Alcohol and Drug Abuse Patient Records regulations: The Federal rules restrict any use of the information to criminally investigate or prosecute any alcohol or drug abuse patient.[facility] the event this information is protected by the Federal Confidentiality of Alcohol and Drug Abuse Patient Records regulations: The Federal rules restrict any use of the information to criminally investigate or prosecute any alcohol or drug abuse patient.[facility] the event this information is protected by the Federal Confidentiality of Alcohol and Drug Abuse Patient Records regulations: The Federal rules restrict any use of the information to criminally investigate or prosecute any alcohol or drug abuse patient.[facility] Reason for Visit (unrecogniz ed section and content) Reason Comments Cough Cough and congestion x 3 weeks Reason Comments Cough Cough, congestion, H A and stuffy nose x 4 days Specialty Diagnoses / Procedures Referred By Contac t Referred To Contact Radiology / [facility] Diagnoses Foot pain, left Foot pain, left [M79.672] ROOM 10 Procedures X-RAY FOOT MINIMUM 3 VIEWS XR GENERAL 7 Kvng Gutiérrez APRN.PORTFOLIO ASSISTANT [address] [place] [address] [facility] [address] [place] [address] Referral ID Status Reason Start Date Expiration Date Visits Re quested Visits Authorized [id number] Closed 11/05/2020 11/05/2021 99 99 Care Teams (unrecognized sec tion and content) Party Coordinator Relationship Specialty Start Date End Date Eliana Rivera DO PCP - General Family Medicine 07/14/16 Party Coordinator Relationship Specialty Start Date End Date Eliana [...] Dates Dr. Nando Segovia DO Primary Care Pr ovider, Attending Provider, Referring Provider Active Party Coordinator Relationship Specialty Start Date End Date Eliana Rivera PCP - General Family Medicine 07/14/16 Team [...] 27, 2024 End: June 27, 2024 Dr. Nando Segovia DO Referring Provider [...] August 06, 2024 End: August 06, 2024 Team Status: Inactive Member Role Status Dates Dr. Nando Segovia DO Primary Care Provider Active Start: September 27, 2024 End: September 27, 2024 Dr. Bob Gan MD Attending Provider Active Start: September 27, 2024 End: September 27, 2024 Dr. Bob Gan MD Referring Provider Active Start: September 27, 2024 End: September 27, 2024 Goals (unrecognized section and content) Goals [...] BE BASED ON THE PRIMARY CLINICAL RECORDS. [employer] provides no warranty or guarantee of the accuracy or completeness of information in this document.
--- NOTE | 2024-12-21 10:32 | EDS_ITS ---
HPI History of Present Illness Chief Complaint: Flank Pain Narrative Narrative: 44-year-old male who denies significant past medical history presents with sudden onset of right flank pain that he has had since 830 this morning approximately 2 hours ago. He states the pain waxes and wanes, and radiates towards the front. It is in his right flank. He denies any fevers or chills. He is nauseated but has not vomited. No recent dark urine or hematuria. No problems with bowel movements. No exacerbating or alleviating factors. He states there was a period where it went away for about 15 minutes but came back and now is more unrelenting. Denies previous history of kidney stones. [facility] Medical History Encounter for sterilization Wears glasses Migraine headache Gastric reflux CPAP (continuous positive airway pressure) dependence Encounter for vasectomy Asthma Skin cancer Contact with and (suspected) exposure to other viral communicable diseases Acute pharyngitis, unspecified Home Medications ?Medication ?Instructions ?Recorded ?Last Taken ?Type omeprazole 20 mg capsule,delayed 20 mg PO DAILY 06/17/24 History release CPAP and supplies #1 ea 05/28/24 Unknown Rx sildenafil 50 mg tablet (Viagra) 50 mg PO QDAY PRN sex ual activity 05/28/24 06/16/24 Rx #7 tabs ketorolac 10 mg tablet 10 mg PO TID PRN pain 5 days #15 12/21/24 Unknown Rx tabs oxycodone-acetaminophen 5 mg-325 1 tab PO Q6H PRN pain 3 days #12 12/21/24 Unknown Rx mg tablet (Percocet) tabs tamsulosin 0.4 mg capsule (Flomax) 0.4 mg PO QHS #10 c aps 12/21/24 Unknown Rx Allergy/AdvReac Type Severity Reaction Status Date / Time No Known Allergies Allergy Verified 12/21/24 10:09 Family History Grandfather Parkinson disease Surgical History S/P vasectomy S/P umbilical hernia repair, follow-up exam Hx of oral surgery S/P skin biopsy Social History adopted: No household members: spouse and children number of children: 4 current occupational status: employed current occupation: [employer] pets and animals: Yes pets and animals: dog(s) Smoking Status: Never smoker alcohol intake: never substance use type: does not use caffeine: Yes (1) Type: coffee frequency: does not exercise seatbelt use: always do you feel safe at home: Yes ROS ROS ED ROS Narrative Review of systems positive for right flank pain, positive nausea, no vomiting. No fevers or chills. No dysuria or hematuria. No exacerbating or alleviating factors. Denies previous abdominal surgeries except for hernia. EXAM Physical Exam Narrative Exam Narrative: Afebrile. Vital signs noted. Nontoxic-appearing. Appears uncomfortable and cannot get into a comfortable position. Cardiovascular examination reveals regular rate and rhythm. Lungs are clear to auscultation bilaterally. Abdomen is soft and nontender without guarding or rebound. Negative Rovsing sign. No pain over McBurney's point. No CVA tenderness to percussion. Neurological examination nonfocal, nonlateralizing. Moves all extremities. Able to sit up on cot. Const Vital Signs: 12/21/24 10:09 12/21/24 12:09 Temperature 98.5 F Temperature Source Oral Pulse Rate 74 65 Respiratory Rate 20 H 16 Blood Pressure 146/87 H 128/88 H Blood Pressure Mean 106 101 Pulse Ox 100 100 Oxygen Delivery Method Room Air Room Air MDM MDM MDM Narrative Medical decision making narrative: The dfferential diagnosis includes but not limited to ureteral colic versus ureterolithiasis versus diverticulitis versus obstruction/partial small bowel obstruction. History and physical does not support the latter 2 diagnoses. Patient was administered morphine, and [place]y and Toradol for analgesia. IV fluids run at 250 mL/h. I do feel CT imaging is indicated to look for ureteral stone and urinary obstruction. Additionally I have low suspicion for testicular torsion based on the history and physical. I reviewed his laboratory work and he has normal white count of 8.5 with hemoglobin normal at 13.6, hematocrit 41.6, platelet count normal at 283. BMP is remarkable for glucose of 172 but normal anion gap of 12, BUN and creatinine are normal. Electrolytes are otherwise grossly unremarkable. Urinalysis shows 2+ Faas amorphus sediment with 0 bacteria and 0-5 white cells but 50-100 RBCs. I do not feel antibiotics are indicated. I reviewed the radiology report of the CT of the abdomen and pelvis which shows a 2 mm in the left renal pole but no obstruction, however on the right there is a 4 mm stone causing hydronephrosis of the right ureteropelvic junction. Upon repeat examination, he states he feels improved. He initially told the RN that he needed more pain medication, but upon my repeat examination, he stated he felt improved. He will be given the additional dose of morphine and Toradol, and discharged with prescriptions for Percocet, Flomax, and Toradol. He will follow-up with urology within the next week. Return instructions to the emergency department were reviewed with the patient and his . Disposition is discharged home in stable condition. History & Record Review Discussion w/independent historian: Patient and Family () Lab Data Attestation: I reviewed the patient's lab results. Labs: Laboratory Results - last 24 hr 12/21/24 12/21/24 10:44 11:40 WBC 8.5 RBC 4.93 Hgb 13.8 Hct 41.6 MCV 84.4 MCH 28.0 MCHC 33.2 RDW Std Deviation 40.9 RDW Coeff of Anne 13.2 Plt Count 283 MPV 9.4 Immature Gran % (Auto) 0.200 Neut % (Auto) 49.5 Lymph % (Auto) 39.8 [place] % (Auto) 6.9 Eos % (Auto) 2.8 Baso % (Auto) 0.8 Absolute Neuts (auto) 4.2 Absolute Lymphs (auto) 3.40 Nucleated RBC % 0 Sodium 137 Potassium 4.3 Chloride 101 Carbon Dioxide 24.2 Anion Gap 12 BUN 18 Creatinine 1.07 Estim Creat Clear Calc 105.38 Est GFR (MDRD) Non-Af 87 BUN/Creatinine Ratio 16.8 Glucose 172 H Calcium 9.7 Urine Color Yellow Urine Clarity Turbid Urine pH 8.0 Ur Specific [place] 1.010 Urine Protein 30 H Urine Glucose (UA) Normal Urine Ketones Negative Urine Occult Blood 250 H Urine Nitrite Negative Urine Bilirubin Negative Urine Urobilinogen Normal Ur Leukocyte Esterase Negative Urine RBC 50-100 SEEN Urine WBC 0-5 SEEN Ur Squamous Epith Cells 0 SEEN Amorphous Sediment 2+ PHOS Urine Bacteria 0 SEEN Urine Mucus 0 SEEN Radiography Diagnostic Testing: Clinical Impression(s) from Imaging Studies Abdomen/Pelvis CT 12/21/24 11:00 IMPRESSION: A 2 mm stone at the lower pole of the left kidney. No left hydronephrosis. A 4 mm obstructing stone at the right ureteropelvic junction causing moderate right hydronephrosis. Reading Location: [facility] Discharge Plan Triage Chief Complaint: Flank Pain ED Provider: Braeden Mohan Dx/Rx/DC Orders Clinical Impression: Ureterolithiasis, Right flank pain Instructions: ED Kidney Stone with Pain Prescriptions: New oxycodone-acetaminophen [Percocet] 5-325 mg tablet 1 tab PO Q6H PRN (Reason: pain) 3 Days Qty: 12 0RF tamsulosin [Flomax] 0.4 mg capsule 0.4 mg PO QHS Qty: 10 0RF ketorolac 10 mg tablet 10 mg PO TID PRN (Reason: pain) 5 Days Qty: 15 0RF No Action (DME) CPAP and supplies See Rx Instructions .Route .MEDSUPPLY Qty: 1 0RF Rx Instructions: As directed for Sleep apnea sildenafil [Viagra] 50 mg tablet 50 mg PO QDAY PRN (Reason: sexual activity) Qty: 7 3RF Rx Instructions: administer 30 minutes to 4 hours before activity omeprazole 20 MG capsule,delayed release(DR/EC) 20 mg PO DAILY Patient Comments: Primary Care Provider: Nando Segovia Referrals: Nando Segovia, [Primary Care Provider] - Chas Hernandez MD [Med Staff - Active Staff] - 1 Week Activity Restrictions/Additional Instructions: Medication as directed for pain. Strain all urine. Return to the emergency department with fever, intractable pain, inability to take medications, new or worsening symptoms. Follow-up with urology within the next week. Light duty at work. Flomax may make you lightheaded. Narcotic pain medication can cause nausea, vomiting, constipation, lightheadedness and dizziness, and addiction. Print Language: Thai Disposition Disposition: Home, Self Care
[2024-12-21] MEDS: 0.9% Normal Saline (1000mL) 1,000 ML 250 ML IV (10:47)
[2024-12-21 10:52] VITALS: BMI 35.1
[2024-12-21 10:52] LABS: Hematocrit 41.6 % (40-54); Hemoglobin 13.8 g/dL (13.0-16.5); Immature Granulocytes Count 0.020 X10^3/uL (0.0-0.0); Mean Corp Hgb Conc 33.2 g/dL (32-36); Mean Corpuscular Volume 84.4 fL (80-94); Mean Platelet Vol. 9.4 fl (6.2-12.0); NRBC Flagged by Analyzer 0 % (0-5); Platelet Count 283 K/mm3 (150-450); RBC Distribution Width CV 13.2 % (11.6-14.6); RBC Distribution Width SD 40.9 fl (35.1-43.9); Red Blood Count 4.93 M/mm3 (4.6-6.2); White Blood Count 8.5 K/mm3 (4.4-11.0)
--- NOTE | 2024-12-21 11:00 | CT_ITS ---
PROCEDURE: ABDOMEN/PELVIS WITHOUT CONT 12/21/2024 REASON FOR EXAM: KIDNEY STONE TECHNIQUE: Procedure Code: CTABDPEL Modality: CT Procedure: ABDOMEN/PELVIS WITHOUT CONT Noncontrast technique limits evaluation of the abdominal and pelvic viscera. Coronal and Sagittal reconstruction series were provided. One or more dose reduction techniques were used (e.g., Automated exposure control, adjustment of the mA and/or kV according to patient size, use of iterative reconstruction technique). RADIATION DOSE SUMMARY: CTDlvol: 6.76 mGy DLP: 1341.02 mGycm COMPARISON: None. FINDINGS: Lung bases: Clear. Liver: Unremarkable. Gallbladder: Unremarkable. No biliary dilation. Spleen: Unremarkable. Pancreas: Unremarkable. Adrenals: A 2.3 cm right adrenal adenoma. The left adrenal gland is unremarkable. Kidneys: A 2 mm stone at the lower pole of the left kidney. No left hydronephrosis. A 4 mm obstructing stone at the right ureteropelvic junction causing moderate right hydronephrosis. Bladder: The bladder is unremarkable. Reproductive Organs: Unremarkable. Bowel: No bowel obstruction. No bowel wall thickening. Appendix: Unremarkable. Lymph nodes: No lymphadenopathy. Vasculature: No aneurysm. Peritoneum / Retroperitoneum: No free air or free fluid. Bones: No acute bony abnormalities. CT/Abdomen/Pelvis without Cont IMPRESSION: A 2 mm stone at the lower pole of the left kidney. No left hydronephrosis. A 4 mm obstructing stone at the right ureteropelvic junction causing moderate r ight hydronephrosis. Reading Location: [id number]
[2024-12-21 11:11] LABS: Anion Gap 12 (5-15); BUN 18 mg/dL (4-19); BUN/Creat Ratio 16.8 RATIO (10-20); Calcium,Total 9.7 mg/dL (7.6-11.0); Carbon Dioxide 24.2 mmol/L (21.0-32.0); Chloride 101 mmol/L (98-108); Estimated Creatinine Clearance 105.38 ml/min (50-250); Glucose 172 mg/dL (70-99); Potassium 4.3 mmol/L (3.3-5.1)
[2024-12-21 11:41] LABS: Mucous, Urine 0 SEEN /hpf (<or=2+); Squamous Epithelial Cells - UA 0 SEEN /hpf (0-5)
[2024-12-21 11:49] LABS: Color, Urine Yellow (Yellow); Glucose, Dipstick Normal (Normal); Ketone-Dipstick Negative (Negative); Leukocyte Esterase-Dipstick Negative /ul (Negative); Nitrite-Dipstick Negative (Negative); Occult Blood-Urine 250 /ul (Negative); Protein-Dipstick 30 mg/dl (Negative); Specific Gravity, Urine 1.010 (1.002-1.030); Urine Bilirubin Dipstick Negative (Negative)
[2024-12-21 11:57] LABS: Red Blood Cells-Urine 50-100 SEEN /hpf (0-5)
--- NOTE | 2024-12-21 12:01 | CM.ED ---
Social Work Date of referral: 12/21/2024 Reason for referral: Advanced Care Directives (ACD's) not on file. Referred by: Social Work Identification Patient was sleeping. Carpet Repairer requested patient's to bring in copy of ACD's which she was agreeable to. Viviana Gambino, [employer]LECT[employer]IES ASSEMBLER, IT PROGRAM MANAGER
[2024-12-21 12:09] VITALS: BP 128/88; PULSE 65; RESP 16; O2SAT 100
[2024-12-21 13:33] VITALS: BP 153/94; PULSE 68; RESP 16; TEMP 36.9; O2SAT 100
== END 2024-12-21 13:41 | disposition home or self-care (01) ==
PROVIDERS: Emergency Provider Emergency Medicine; PCP Family Medicine; Visit Provider Emergency Medicine
DX: N13.2 Hydronephrosis with renal and ureteral calculous obstruction (principal); Z85.828 Personal history of other malignant neoplasm of skin; K21.9 Gastro-esophageal reflux disease without esophagitis; Z79.899 Other long term (current) drug therapy; R10.9 Unspecified abdominal pain
CPT/HCPCS: 74176; 80048; 81001; 85025; 96361; 96374; 96375; 96376; 99283; A4216; J2405

== ENCOUNTER 2024-12-22 17:34 | Emergency (ER) | payer OTHER, SELFPAY ==
[2024-12-22 17:35] VITALS: BP 153/91; PULSE 87; RESP 16; TEMP 37; O2SAT 97; BMI 34.9
[2024-12-22 17:37] VITALS: BP 153/91; PULSE 87; RESP 16; TEMP 37; O2SAT 97
--- NOTE | 2024-12-22 18:01 | ED.VIS.GI ---
HPI HPI - GI History of Present Illness Chief Complaint: Nausea/Vomiting Informant: patient Nausea/Vomiting/Emesis GI Symptom: Positive for Nausea and Vomiting Onset: Today Severity: Moderate Diarrhea/Melena/Hematochezia GI Symptom: Negative for Diarrhea, Melena or Hematochezia Associated Symptoms Associated Symptoms: Negative for Dysuria, Frequency, Hematuria or Urgency Narrative Narrative: 44-year-old male no CeeNU past medical history except yesterday was diagnosed with a right UVJ kidney stone of 4 mm. He was discharged home on narcotic pain medication, Toradol and Flomax. He said the pain Zaxine are controlled but he has had a lot of nausea and vomiting and has Gabrielle take medication. So he came in. Denies any fever. Able to urinate. Prior similar symptoms: No Recent Illness/Hospitalization: No PFSH PFSH Medical History Encounter for sterilization Wears glasses Migraine headache Gastric reflux CPAP (continuous positive airway pressure) dependence Encounter for vasectomy Asthma Skin cancer Contact with and (suspected) exposure to other viral communicable diseases Acute pharyngitis, unspecified Home Medications ?Medication ?Instructions ?Recorded ?Last Taken ?Type omeprazole 20 mg capsule,delayed 20 mg PO DAILY 11/07/15 06/17/24 History release CPAP and supplies #1 ea 05/28/24 Unknown Rx sildenafil 50 mg tablet (Viagra) 50 mg PO QDAY PRN sexual activity 05/28/24 06/16/24 Rx #7 tabs ketorolac 10 mg tablet 10 mg PO TID PRN pain 5 days #15 12/21/24 Unknown Rx tabs oxycodone-acetaminophen 5 mg-325 1 tab PO Q6H PRN pain 3 days #12 12/21/24 Unknown Rx mg tablet (Percocet) tabs tamsulosin 0.4 mg capsule (Flomax) 0.4 mg PO QHS #10 caps 12/21/24 Unknown Rx clobetasol 0.05 % topical cream topical 12/22/24 Unknown History ondansetron 4 mg disintegrating 4 mg PO Q6H PRN nausea and 12/22/24 Unknown Rx tablet vomiting #10 tabs Allergy/AdvReac Type Severity Reaction Status Date / Time No Known Allergies Allergy Verified 12/21/24 10:09 Family History Grandfather Parkinson disease Surgical History S/P vasectomy S/P umbilical hernia repair, follow-up exam Hx of oral surgery S/P skin biopsy Social History adopted: No household members: spouse and children number of children: 4 current occupational status: employed current occupation: [employer] pets and animals: Yes pets and animals: dog(s) Smoking Status: Never smoker alcohol intake: never substance use type: does not use caffeine: Yes (1) Type: coffee frequency: does not exercise seatbelt use: always do you feel safe at home: Yes ROS ROS ED ROS Narrative Nausea and vomiting. Constitutional Constitutional ED: Denies chills or fever(s) ENT ENT ED: Denies ear pain Cardiovascular Cardiovascular: Denies chest pain Respiratory/Chest Respiratory/Chest: Denies cough or dyspnea Gastrointestinal Gastrointestinal: Reports nausea Genitourinary Genitourinary ED: Denies dysuria or hematuria Musculoskeletal Musculoskeletal: Denies arthralgias Integumentary Denies abscess Neurologic Neurologic: Denies headache(s) Psychiatric Psychiatric: Denies anxiety Endocrine Endocrinology: Denies polydipsia Hematologic/Lymphatic Hematologic/Lymphatic: Denies easy bleeding Allergic/Immunologic Allergic/Immunologic ED: Denies mouth swelling, tongue swelling or urticaria EXAM Physical Exam Narrative Exam Narrative: Well-appearing 44-year-old male vital signs stable afebrile does not look septic toxic no acute distress. Family member at bedside. H EENT exam pupils Ramming Actilite. Active motions are intact. Mild dry mucous membranes. Neck nontender no JVD. Lungs clear to auscultation bilaterally. Heart regular rhythm rate about 85 no murmur. Chest wall ribs nontender. Abdomen soft, nontender, nondistended, normal bowel sounds without peritoneal signs. No hernia or mass. No distention or obstruction. Moving all 4 extremities. Nontender no edema. Normal strength. Back nontender. Neurologically he is awake alert. Answering questions following commands. Benign exam. Abdomen nontender. Const Vital Signs: 12/22/24 17:35 12/22/24 17:37 Temperature 98.6 F 98.6 F Temperature Source Temporal Oral Pulse Rate 87 87 Respiratory Rate 16 16 Blood Pressure 153/91 H 153/91 H Blood Pressure Mean 111 111 Pulse Ox 97 97 Oxygen Delivery Method Room Air Room Air Positive well nourished and well developed; Negative for cachectic, contractures or unkempt General Appearance ED: well developed and NAD; Negative for unkempt, cachectic, contractures or pallor Nutritional Appearance: Negative for cachectic HEENT Reports dry mucous membranes normocephalic and atraumatic Mouth ED: Yes dry mucous membranes Mouth: dry mucous membranes Eyes PERRL and EOMs intact bilaterally Neck no lymphadenopathy, supple and no JVD Resp normal respiratory effort and clear to auscultation bilaterally Cardio regular rate, regular rhythm, S1 normal heart sound, S2 normal heart sound and no murmurs GI non-tender, non-distended and no masses Inspection: Negative for abdominal distention Auscultation: normoactive bowel sounds Palpation: soft; Negative for tender, guarding, mass, pulsatile mass or rebound tenderness present Back/Spine no CVA tenderness Extremity full ROM General Extremety ED: Negative for edema or tenderness General Extremity: Negative for edema Neuro CN's II-XII intact bilaterally and moves all extremities Sensorium / Orientation: alert, oriented to person, oriented to place and oriented to time Motor Exam: strength 5/5 throughout Psych mental status grossly normal and thought process normal Appearance: Negative for unkempt Skin no wounds General Skin Exam: Negative for jaundice or pallor Lesions: no lesions Rashes: no rashes MDM MDM MDM Narrative Medical decision making narrative: 44-year-old male no CeeNU past medical history other than diagnosed with his first kidney stone yesterday it was 4 mm. Discharged to home on narcotic pain meds, Toradol and Flomax today has had a lot of nausea and vomiting and has been ill take his meds. He is having no abdominal pain. I do not think he needs reimaged I will give him IV fluids, Zofran and some morphine. And recheck a chemistry panel. His labs and workup from yesterday were unremarkable other than stone. Repeat exam patient is doing well at 6:53 PM. Says his nausea is well-controlled currently his pain is well-controlled. He is comfortable being discharged to home. He is drinking p.o. fluids. He will be given a prescription for p.o. Zofran which we filled here to hospital for home. He is already on appropriate pain medications and Flomax for his kidney stone. History & Record Review Discussion w/independent historian: Patient Additional record(s) reviewed:: Prior inpatient record, Prior outpatient record, Prior ED visit and Prior labs Lab Data Attestation: I reviewed the patient's lab results. Lab results narrative: Electrolytes unremarkable gap 11. BUN of 20 creatinine 1.59. Which is slightly elevated from his prior. Labs: Laboratory Results - last 24 hr 12/22/24 17:50 Sodium 139 Potassium 4.1 Chloride 103 Carbon Dioxide 25.2 Anion Gap 11 BUN 20 H Creatinine 1.59 H Estim Creat Clear Calc 70.86 Est GFR (MDRD) Non-Af 54 L BUN/Creatinine Ratio 12.5 Glucose 173 H Calcium 9.1 Discharge Plan Triage Chief Complaint: Nausea/Vomiting ED Provider: Favio Cazares Dx/Rx/DC Orders Clinical Impression: Nausea & vomiting, History of renal calculi Instructions: ED Vomiting (Adult) Prescriptions: New ondansetron 4 mg tablet,disintegrating 4 mg PO Q6H PRN (Reason: nausea and vomiting) Qty: 10 0RF No Action (DME) CPAP and supplies See Rx Instructions .Route .MEDSUPPLY Qty: 1 0RF Rx Instructions: As directed for Sleep apnea sildenafil [Viagra] 50 mg tablet 50 mg PO QDAY PRN (Reason: sexual activity) Qty: 7 3RF Rx Instructions: administer 30 minutes to 4 hours before activity omeprazole 20 MG capsule,delayed release(DR/EC) 20 mg PO DAILY Patient Comments: oxycodone-acetaminophen [Percocet] 5-325 mg tablet 1 tab PO Q6H PRN (Reason: pain) 3 Days Qty: 12 0RF tamsulosin [Flomax] 0.4 mg capsule 0.4 mg PO QHS Qty: 10 0RF ketorolac 10 mg tablet 10 mg PO TID PRN (Reason: pain) 5 Days Qty: 15 0RF clobetasol 0.05 % cream topical Primary Care Provider: Nando Segovia Referrals: Nando Segovia DO [Primary Care Provider] - Chas Hernandez MD [Med Staff - Active Staff] - 3-5 Days if not improving Activity Restrictions/Additional Instructions: Plenty fluids and rest. Follow-up with the urologist if you are not improving. Typically a 4 mm stone will pass without problem. The medications that the physician is already wrote you for for pain are fine. Zofran as needed for nausea which you may swallow or let dissolve under your tongue. If you are not nauseated you do not need to take that at all. Return if you are feeling worse, develop a fever, intractable pain or unable to keep fluids down. Print Language: Macanese Disposition Disposition: Home, Self Care
--- OUTSIDE RECORDS SUMMARY | 2024-12-22 18:08 | XMS RPT_ITS | CCD ---
Author Organization [facility] Care Team Providers Care Dental Equipment Mechanic Name Role Phone DR ELIANA RIVERA DO Primary Care Physician [phone] Eliana Rivera DO Primary Care Provider ELIANA RIVERA Primary Care Unavailable ELIANA RIVERA Primary Care Unavailable Dr. Eliana Rivera Primary Care Provider [phone] Dr. Eliana Rivera Referring Provider LSIA Chavez Attending Provider Dr. Nando Segovia Primary Care Provider [phone] Dr. Nando Segovia Attending Provider [phone] Eliana Rivera DO Primary Care Provider [phone] Dr. Nando Segovia DO Primary Care Provider [phone] Dr. Nando Segovia DO Attending Provider [phone] Dr. Nando Segovia DO Referring Provider [phone] Dr. Bob Gan MD Attending Provider Dr. Bob Gan MD Referring Provider Elvia RICHMOND, Dr. Rojas Other Provider [phone] Dr. Octavio Santoyo MD Attending Provider Aidee RICHMOND, Dr. Salomon Referring Provider Dr. Nando Segovia DO Primary Care Provider Dr. Nando Segovia DO Attending Provider [phone] Dr. Nando Segovia DO Referring Provider Braeden Mohan Attending Unavailable Nando Segovia Primary Care Unavailable Brown, Nando R Primary Care Unavailable Calabretta, Bob Referring Unavailable Calabretta, Bob Attending Unavailable Brown, Nando R Primary Care Unavailable Calabretta, Bbo Attending Unavailable Calabretta, Bob Referring Unavailable Brown, Nando R Primary Care Unavailable Calabretta, Bob Attending Unavailable Calabretta, Bob Referring Unavailable Brown, Nando R Primary Care Unavailable Brown, Nando R Referring Unavailable Calabretta, Bob Attending Unavailable Brown, Nando R Primary Care Unavailable Brown, Nando R Referring Unavailable Brown, Nando R Attending Unavailable Brown, Nando R Primary Care Unavailable Natanael, Octavio Attending Unavailable Georgecherpablo, Aime Referring Unavailable Brown, Nando R Primary Care [...] Bob Attending Unavailable Calabretta, Bob Referring Unavailable Brown DO, Dr. Nando Morris Primary Care Provider [phone] Dr. Bob Gan MD Attending Provider Dr. Bob Gan MD Referring Provider Braeden Mohan MD Emergency Provider [phone] Allergies Allergy Classification Reported Allergen(s) Allergy Type Date of Onset Reaction(s) Facility (3 sources) environmental [Other] Propensity to adverse reactions 6 [facility] (1 source) OTHER; Translations: [OTHER] Propensity to adverse reactions (disorder) 6 [facility] Repository Medications Current Medications Medication Drug Class(es) Dates Sig (Normalized) Sig (Original) acetaminophen 325 mg / oxyCODONE hydrochloride 5 mg oral tablet (1 source) Opioid Agonist Start: 12-21-2024 take 1 tablet by mouth every six hours as needed for pain Oxycodone-Acetamin ophen (Percocet) 5-325 mg tablet Active 1 {tbl} PO EVERY 6 HOURS as needed for pain 12 3 0 December 21, 2024 Calculus of ureter Right flank pain Calculus of ureter Unspecified abdominal pain Start: 12-21-2024 take 1 tablet by bogdan th every six hours as needed for pain Oxycodone-Acetaminophen (Percocet) 5-325 mg tablet Active 1 {tbl} PO EVERY 6 HOURS as needed for pain 12 3 0 December 21, 2024 Calculus of ureter Right flank pain Calculus of ureter Unspecified abdominal pain [id number] actuat albuterol 0.09 mg/actuat metered dose [...] Comment on above: 2 puffs every four hours as needed for c ough, wheezing , chest tightness or shortness of [...] sources) alpha-Adrenergic Agonist, Histamine-1 Receptor Antagonist Start: 09-22-19 07 take 1 tablet by mouth twice daily as needed cetirizine-pseudoeph edrine (ZYRTEC-D) 5-120 mg ORAL Tb12 Indications: Allergic rhinitis, cause unspecified one tablet twice a day as needed 60 11 09/21/2006 Active Comment on above: one tablet twice a d ay as needed clotrimazole 10 mg/ml topical cream (3 sources) Azole Antifungal Start: 09-26-20 15 clotrimazole (ANTIFUNGAL, CLOTRIMAZOLE,) 1 % cream Indications: Tinea cruris Apply 1 application to affected area twice daily. 15 g 0 01/17/2015 Active Comment on above: Apply 1 application to affected area twice daily. CPAP and supplies (6 sources) Start: 05-28-19 CPAP and supplies Active 0 .Route .MEDSUPPLY 1 0 May 28, 2024 1:00am As directed for Sleep apnea Start: 05-28-2024 CPAP and suppl ies Active 0 .Route .MEDSUPPLY 1 May 28, 2024 1:00am As directed for Sleep apnea doxycycline monohydrate 100 mg oral tablet (1 source) Tetracycline-class Drug Start: 08-27-2022 End: 09-01-2022 take 1 tablet by mouth twice daily doxycycline monohydrate 100 mg tablet Take 1 tablet by mouth twice daily for 5 days. 10 tablet 0 08/27/2022 09/01/2022 Active Comment on above: Take 1 tablet by bogdan twice daily for 5 days. ketorolac tromethamine 10 mg oral tablet (1 source) Nonsteroidal Anti-inflammatory Drug, Cyclooxygenase Inhibitor Start: 12-21-2024 take 1 tablet by mouth three times daily as needed for pain Ketorolac 10 mg tablet Active 10 mg PO THREE TIMES A DAY as needed for pain 15 5 0 December 21, 2024 12:00am mometasone furoate 0.05 mg/actuat metered dose nasal spray (3 sources) Corticosteroid Start: 09-21-2006 take 2 spray(s) nasal route once daily mometasone (NASONEX) 50 mcg/Actuation NASAL [place] Indications: Allergic rhinitis, cause unspecified 2 sprays in each nostril once a day 1 11 09/21/2006 Active Comment on above: 2 sprays in each nos tril once a day omeprazole 20 mg delayed release oral capsule (11 sources) Proton Pump Inhibitor Start: 11-07-2015 take 1 capsule by mouth once daily Omeprazole 20 MG capsule,delayed release(DR/EC) Active 20 mg PO DAILY November 07, 2015 12:00am OMEPRAZOLE (PRIL OSEC ORAL) Take by mouth. Active OMEPRAZOLE (PRIL OSEC ORAL) Take by mouth. 0 Active Comment on above: Take by mouth. sildenafil 50 mg oral tablet (6 sources) Phosphodiesterase 5 Inhibitor Start: 05-28-19 Sildenafil (Viagra) 50 mg tablet Active 50 mg PO daily as needed for sexual activity 7 3 May 28, 2024 1:00am administer 30 minutes to 4 hours before activity tamsulosin hydrochloride 0.4 mg oral capsule (1 source) alpha-Adrenergic Spencer Start: 12-22-19 take 1 capsule by mouth at bedtime Tamsulosin (Flomax) 0.4 mg capsule Active 0.4 mg PO AT BEDTIME 10 0 December 21, 2024 12:00am Completed/Discontinued Medications Medication Drug Class(es) Dates Sig (Normalized) Sig (Original) acetaminophen 325 mg / HYDROcodone bitartrate 5 mg oral tablet (6 sources) Opioid Agonist Start: 4 End: 5 Hydrocodone-Acetamino phen 5-325 mg tablet Discontinued 1 {tbl} PO EVERY 6 HOURS NEEDED as needed for Pain 12 3 November 04, 2023 May 28, 2024 5:15pm Pain in left testicle Left testicular pain methylPREDNISolone 4 mg oral tablet (7 sources) Corticosteroid Start: 2 End: 4 take 1 tablet by mouth once Methylprednisolone (Medrol (Tony)) 4 mg tablets,dose pack Discontinued 0 PO per package directions April 07, 2022 1:00am May 30, 2023 5:35pm PO PER PKG DIR montelukast 10 mg oral tablet (7 sources) Leukotriene Receptor Antagonist Start: 9 End: 4 take 1 tablet by mouth once daily Montelukast 10 MG tablet Discontinued 10 mg PO DAILY July 22, 2018 12:00am May 30, 2023 5:37pm oxyCODONE hydrochloride 5 mg oral tablet (6 sources) Opioid Agonist Start: 5 End: 5 take 5-10 mg by mouth every four hours as needed for pain Oxycodone 5 mg Tablet Discontinued 5 - 10 mg PO EVERY 4 HOURS NEEDED as needed for Pain Score 4-10 14 5 0 June 18, 2024 June 27, 2024 3:26pm Umbilical hernia Umbilical hernia without obstruction or gangrene Problems Active Problems Problem Classification Problem Date Documented Date Episodic/Chronic Abdominal hernia (16 sources) Umbilical hernia; Translations: [Umbilical hernia without obstruction or gangrene] Onset: 07-02-2024 06-27-2024 Episodic Abdominal pain (9 sources) Flank pain; Translations: [Unspecified abdominal pain] 05-30-2023 Episodic Comment on above: UA and labs ordered to evaluate this. Administrative/social admission (8 sources) Administrative reason for encounter; Translations: [Encounter for other administrative examinations] 03-24-2023 Episodic Calculus of urinary tract (1 source) Ureteric stone; Translations: [Calculus of ureter] 12-21-2024 Episodic Contraceptive and procreative management (19 sources) Patient encounter status; Translations: [Encounter for sterilization] Onset: 08-01-2024 06-27-2024 Episodic Genitourinary symptoms and ill-defined conditions (11 sources) Increased frequency of urination; Translations: [Frequency of micturition] Onset: 06-19-2024 05-28-2024 Episodic Immunizations and screening for infectious disease (7 sources) Contact with and (suspected) exposure to other viral communicable diseases; Translations: [Contact with or suspected exposure to other viral communicable disease] 04-07-2022 Episodic Other aftercare (11 sources) History of repair of umbilical hernia; Translations: [Encounter for follow-up examination after completed treatment for conditions other than malignant neoplasm] 06-27-2024 Episodic Other male genital disorders (10 sources) Male erectile dysfunction, unspecified; Translations: [Erectile dysfunction] 05-28-2024 Chronic Other male genital disorders (6 sources) Pain of left testicle; Translations: [Left testicular pain] 11-12-2023 Episodic Other nutritional; endocrine; and metabolic disorders (11 sources) History of clinical finding in subject; Translations: [Personal history of other endocrine, nutritional and metabolic disease] 05-30-2023 Episodic Other upper respiratory infections (1 source) Chronic sinusitis; Translations: [Chronic sinusitis, unspecified] Chronic Other upper respiratory infections (8 sources) Acute upper respiratory infection; Translations: [Acute [...] Test Name Value Interpretation Reference Range Facility Absolute lymphocyte countOrd ered By: Braeden Mohan on 12-21-2024 Lymphocytes Auto (Unsp spec) [#/Vol] 3.40 10*3/uL 0.83-4.51 [facility] Absolute neutrophil countOrd ered By: Braeden Mohan on 12-21-2024 Neutrophils (Bld) [#/Vol] 4.2 10*3/uL 2.0-7.7 [facility] Amorphous sediment detection in urine sediment by light microscopyOrdered By: Braeden Mohan on 12-21-2024 Amorphous sediment LM Ql (Urine sed) 2+ PHOS [facility] Anion gap in Serum or Plasma Ordered By: Braeden Mohan on 12-21-2024 Anion gap [Moles/Vol] 12 mmol/L 5-15 [facility] Automated lymphocyte count a s percentage of total leukocytesOrdered By: Braeden Mohan on 12-21-2024 Lymphocytes/100 WBC Auto (Unsp spec) 39.8 % 19-41 [facility] BUN/creatinine ratioOrdered By: Braeden Mohan on 12-21-2024 Urea nitrogen/Creatinine [Mass ratio] 16.8 mg/mg 10-20 [facility] Basophil percentageOrdered B y: Braeden Mohan on 12-21-2024 Basophils/100 WBC (Bld) 0.8 % 0-1 [facility] Bilirubin Test strip Ql (U)O rdered By: Braeden Mohan on 12-21-2024 Bilirubin Ql (U) Negative Negative [facility] Carbon dioxide, total [Moles /volume] in Central venous bloodOrdered By: Braeden Mohan on 12-21-2024 CO2 [Moles/Vol] 24.2 mmol/L 21.0-32.0 [facility] Chloride assayOrdered By: Damián Mohan on 12-21-2024 Chloride [Moles/Vol] 101 mmol/L 98-108 [facility] Eosinophil percentageOrdered By: Braeden Mohan on 12-21-2024 Eosinophils/100 WBC (Bld) 2.8 % 0-5 [facility] Erythrocyte distribution wid th ratioOrdered By: Braeden Mohan on 12-21-2024 Erythrocyte distribution width (RBC) [Ratio] 13.2 % 11.6-14.6 [facility] Erythrocyte distribution wid th standard deviationOrdered By: Braeden Mohan on 12-21-2024 Erythrocyte distribution width (RBC) [Ratio] 40.9 fl 35.1-43.9 [facility] Glomerular filtration rate ( GFR) estimation/1.73 sq m using serum, plasma, or whole bOrdered By: Braeden Mohan on 12-21-2024 GFR/1.73 sq M.predicted among non-blacks MDRD (S/P/Bld) [Vol rate/Area] 87 mL/min/{1.73_m2} >60 [facility] Comment on above: mL/min/1.73m2 CKD-EP I Creatinine Equation (2020) Hematocrit Auto (Bld) [Volum e fraction]Ordered By: Braeden Mohan on 12-21-2024 Hematocrit (Bld) [Volume fraction] 41.6 % 40-54 [facility] Hemoglobin measurementOrdere d By: Braeden Mohan on 12-21-2024 Hemoglobin (Bld) [Mass/Vol] 13.8 g/dL 13.0-16.5 [facility] Immature granulocytes/100 WB C Auto (Bld)Ordered By: Breaden Mohan on 12-21-2024 Immature granulocytes/100 WBC (Bld) 0.200 % 0.0-0.9 [facility] Comment on above: IG% - Immature Granu locytes (promyelocytes, myelocytes and metamyelocytes) > 1% indicates that a LEFT SHIFT is Present. Ketones Test strip Ql (U)Ord ered By: Braeden Mohan on 12-21-2024 Ketones Ql (U) Negative Negative [facility] MCV (mean corpuscular volume ) determinationOrdered By: Braeden Mohan on 12-21-2024 MCV (RBC) [Entitic vol] 84.4 fL 80-94 [facility] Mean corpuscular hemoglobin (MCH) determinationOrdered By: Braeden Mohan on 12-21-2024 MCH (RBC) [Entitic mass] 28.0 pg 27.0-32.0 [facility] Mean corpuscular hemoglobin concentration (MCHC) determinationOrdered By: Braeden Mohan on 12-21-2024 MCHC (RBC) [Mass/Vol] 33.2 g/dL 32-36 [facility] Mean platelet volume determi nationOrdered By: Braeden Mohan on 12-21-2024 Platelet mean volume (Bld) [Entitic vol] 9.4 fL 6.2-12.0 [facility] Microscopic analysis of urin e for red blood cells (RBC)Ordered By: Braeden Mohan on 12-21-2024 Microscopic analysis of urine for red blood cells (RBC) 50-100 SEEN /hpf 0-5 [facility] Monocyte percentageOrdered B y: Braeden Mohan on 12-21-2024 Monocytes/100 WBC (Bld) 6.9 % 0-10 [facility] Mucus LM Ql (Urine sed)Order ed By: Braeden Mohan on 12-21-2024 Mucus Ql (Urine sed) 0 SEEN /hpf [facility] Neutrophil percentageOrdered By: Braeden Mohan on 12-21-2024 Neutrophils/100 WBC (Bld) 49.5 % 47-70 [facility] Nitrite Test strip Ql (U)Ord ered By: Braeden Mohan on 12-21-2024 Nitrite Ql (U) Negative Negative [facility] Nucleated red blood cell per centageOrdered By: Braeden Mohan on 12-21-2024 Nucleated RBC/100 WBC (Bld) [Ratio] 0 % 0-5 [facility] Platelet countOrdered By: Damián Mohan on 12-21-2024 Platelets (Bld) [#/Vol] 283 10*3/uL 150-450 [facility] Potassium measurement (mass/ volume)Ordered By: Braeden Mohan on 12-21-2024 Potassium (Unsp spec) [Mass/Vol] 4.3 mmol/L 3.3-5.1 [facility] Protein Test strip Ql (U)Ord ered By: Braeden Mohan on 12-21-2024 Protein Ql (U) 30 mg/dl High Negative [facility] RBC Auto (Bld) [#/Vol]Ordere d By: Braeden Mohan on 12-21-2024 RBC (Bld) [#/Vol] 4.93 10*6/uL 4.6-6.2 [facility] Serum creatinine measurement (mass/volume)Ordered By: Braeden Mohan on 12-21-2024 Creatinine [Mass/Vol] 1.07 mg/dL 0.70-1.20 [facility] Serum glucose measurement (m ass/volume)Ordered By: Braeden Mohan on 12-21-2024 Glucose [Mass/Vol] 172 mg/dL High 70-99 [facility] Serum or plasma calcium aleena urement (mass/volume)Ordered By: Braeden Mohan on 12-21-2024 Calcium [Mass/Vol] 9.7 mg/dL 7.6-11.0 [facility] Serum or plasma urea nitroge n measurement (mass/volume)Ordered By: Braeden Mohan on 12-21-2024 Urea nitrogen [Mass/Vol] 18 mg/dL 4-19 [facility] Sodium levelOrdered By: Braeden Mohan on 12-21-2024 Sodium [Moles/Vol] 137 mmol/L 133-145 [facility] Squamous epithelial cells de tection in urine sediment by light microscopyOrdered By: Braeden Mohan on 12-21-2024 Epithelial cells.squamous LM Ql (Urine sed) 0 SEEN /hpf 0-5 [facility] Urine clarityOrdered By: Luara Mohan on 12-21-2024 Clarity (U) Turbid Clear [facility] Urine color determinationOrd ered By: Braeden Mohan on 12-21-2024 Color (U) Yellow Yellow [facility] Urine glucose detectionOrder ed By: Braeden Mohan on 12-21-2024 Glucose Ql (U) Normal mg/dl Normal [facility] Urine leukocyte esterase det ection by dipstickOrdered By: Braeden Mohan on 12-21-2024 Leukocyte esterase Test strip Ql (U) Negative Negative [facility] Urine pHOrdered By: Braeden kathleen on 12-21-2024 pH (U) 8.0 [pH] 5.0 - 8.0 [facility] Urine sediment bacteria coun t by microscopy (number/high power field)Ordered By: Braeden Mohan on 12-21-2024 Bacteria LM.HPF (Urine sed) [#/Area] 0 /[HPF] None Seen [facility] Urine specific gravity measu rementOrdered By: Braeden Mohan on 12-21-2024 Specific gravity (U) [Rel density] 1.010 1.002-1.030 [facility] Urine urobilinogen measureme ntOrdered By: Braeden Mohan on 12-21-2024 Urobilinogen Ql (U) Normal mg/dl Normal [facility] White blood cell (WBC) count Ordered By: Braeden Mohan on 12-21-2024 WBC (Bld) [#/Vol] 8.5 10*3/uL 4.4-11.0 [facility] White blood cell countOrdere d By: Braeden Mohan on 12-21-2024 White blood cell count 0-5 SEEN /hpf 0-5 [facility] L200.0900on 10-03-2024 PATH REV Reviewed Normal [facility] Comment on above: Result Comment: NO I NTACT SPERMATAZOA OBSERVED. Ritu Cespedes MD 10/03/2024 AMENDED REPORT 10/03/241628 PATH REV previously reported as: Will follow Performed By: #### L 200.0900 #### [facility] Laboratory [facility] [place], [address] Review by pathologistOrdered By: Bob Gan on 09-27-2024 Pathologist review Sheldon (Unsp spec) [Interp] Will follow [facility] Pathologist review Sheldon (Unsp spec) [Interp] Reviewed [facility] Comment on above: Previous reported re sult: Will follow Edited by: MARIO on 10/03/24:1629NO INTACT SPERMATAZOA OBSERVED.Ritu Cespedes MD 10/03/2024 AMENDED REPORT 10/03/24 [id number] PATH REV previously reported as: Will follow Spermatozoa detection in debbie en by light microscopy post vasectomyOrdered By: Bob Gan on 09-27-2024 Spermatozoa post vasectomy LM Ql (Debbie) ABSENT [facility] Comment on above: CYTOSPIN PREPARATION USED FOR CONCENTRATIONOF SPECIMEN PRIOR TO STAINING AND EXAMINATION L200.0900on 08-07-2024 PATH REV Normal [facility] Comment on above: Result Comment: Yonis Sims MD 08/07/24 Performed By: #### L 200.0900 ####[facility] [id number] [facility] [place], [address] SEMEN POST VAS ABSENT Normal [facility] Comment on above: Result Comment: CYTO SPIN PREPARATION USED FOR CONCENTRATION OF SPECIMEN PRIOR TO STAINING AND EXAMINATION Performed By: #### L 200.0900 ####[facility] [id number] [place], [address] L350.1150on 08-06-2024 CYTOLOGY,SEMEN SEE PATHOLOGY REPORT Normal [facility] Comment on above: Result Comment: Spec [...] prepared and examined revealing rare degenerated spermatozoa. iRtu Cespedes MD 08/05/2024 Performed By: #### L 350.1150 #### [facility] Laboratory [address] [facility] [place], [address] Pathologist review Sheldon (Unsp spec) [Interp]Ordered By: Bob Gan on 08-06-2024 Semen Pathologist Review See comment [facility] Comment on above: Absent.Bethany RICHMOND 08/07/24 Review by pathologistOrdered By: Bob Gan on 08-06-2024 Pathologist review Sheldon (Unsp spec) [Interp] See comment [facility] Comment on above: Absent.Bethany RICHMOND 08/07/24 Spermatozoa detection in debbie en by light microscopy post vasectomyOrdered By: Bob Gan on 08-06-2024 Spermatozoa post vasectomy LM Ql (Debbie) ABSENT [facility] Comment on above: CYTOSPIN PREPARATION USED FOR CONCENTRATIONOF SPECIMEN PRIOR TO STAINING AND EXAMINATION Spermatozoa post vasectomy L M Ql (Debbie)Ordered By: Bob Gan on 08-06-2024 Post Vasectomy Sperm Presence ABSENT [facility] Comment on above: CYTOSPIN PREPARATION USED FOR CONCENTRATIONOF SPECIMEN PRIOR TO STAINING AND EXAMINATION Spermatozoa [Presence] in Se men by Light microscopy --post vasectomyOrdered By: Bob Gan on 07-29-2024 Spermatozoa post vasectomy LM Ql (Debbie) SEE PATHOLOGY REPORT [facility] Comment on above: Specimen submitted t [...] 08/05/2024 Spermatozoa post vasectomy L M Ql ([facility])Ordered By: Bob Gan on 07-29-2024 Vasectomy Semen SEE PATHOLOGY REPORT [facility] Comment on above: Specimen submitted t [...] L350.1150on 07-26-2024 CYTOLOGY,SEMEN SEE PATHOLOGY REPORT Normal [facility] Comment on above: Order Comment: Reaso n for Exam: sterilization Result Comment: Spec imen submitted to Anatomical Pathology Department for testing. Slide has been reviewed by Dr. Cespedes. No spermatozoa identified. Ritu Cespedes MD 07/26/2024 AMENDED REPORT 07/26/24 1459 CYTOLOGY,SEMEN previously reported as: SEE PATHOLOGY REPORT Specimen submitted to Anatomical Pathology Department for testing. Performed By: #### L 350.1150 ####[facility] [id number] [place], [place], [id number] Spermatozoa [Presence] in Se men by Light microscopy --post vasectomyOrdered By: Bob Gan on 07-26-2024 Spermatozoa post vasectomy LM Ql (Debbie) SEE PATHOLOGY REPORT [facility] Comment on above: Specimen submitted t [...] on 07-26-2024 Vasectomy Semen SEE PATHOLOGY REPORT [facility] Comment on above: Specimen submitted t o Anatomical Pathology Department for testing. Slide has been reviewed by Dr. Cespedes.No spermatozoa identified.Ritu Cespedes MD 07/26/2024Previous reported result: SEE PATHOLOGY REPORT Edited by: MARIO on 07/26/24:1459 AMENDED REPORT 07/26/24 1459 CYTOLOGY,SEMEN previously reported as: SEE PATHOLOGY REPORT Specimen submitted to Anatomical Pathology Department for testing. Surgery Visit Reporton 06-27 Surgery Visit Report [facility] [address] [place], [place] [address] OFFICE VISIT Date of Service: 06/27/24 MR#: [id number] Acct: [id number] Name: JAZIEL MARKS Rep #: [id number] : 1980 Provider: Dr. Bob zimmerman MD Age/Sex: 44/M Location: [facility] Status: Signed Intake Vital Signs 06/18/24 10:53 [...] S/P umbilical hernia repair, follow-up exam Z09 [facility] Medical History (Updated 06/27/24 @ 14:27 by [...] 4 current occupational status: employed current occupation: [employer] pets and animals: Yes pets and animals: [...] in 2 weeks. Bob Gan MD Pager: [facility] [address] [place] [address] [place] [id number] Office: 06/27/24 1510 Date Bob Gan MD [facility] Signature: Date (if applicable) CC: Normal [facility] 12 Lead EKGon 06-18-2024 12 Lead EKG [facility] [facility] [address] [place] [id number] 12 Lead EKG 06/18/24 1102 MR#: [id number] Acct: [id number] Name: JAZIEL MARKS Rep #: [id number] : 1980 44 From: Octavio Santoyo MD Attending Dr: Dr. Bob Gan MD Status: [facility] Ordering Dr: Aime Hoskins MD Date: 06/18/24 Location: [facility] Sex: M C Admitted: Test Reason : PREOP Blood Pressure : */* mmHG Vent. Rate : 67 BPM Atrial Rate : 67 BPM P-R Int : 178 ms QRS Dur : 94 ms QT Int : 386 ms P-R-T Axes : 16 61 42 degrees QTcB Int : 407 ms Normal sinus rhythm Normal ECG When compared with ECG of 31-Mar-2019 00:27, No significant change was found Confirmed by Octavio Santoyo ([id number]), technical editor GILBERT HEBERT ([id number]) on 06/20/2024 9:26:16 AM Referred By: Bob Gan Confirmed By: Octavio Santoyo 06/20/24 0926 Date Octavio Santoyo MD CC: Dr. Aime Hoskins MD; Dr. Bob Gan MD; Dr. Nando Segovia, DO Signed Normal [facility] Automated blood erythrocyte countOrdered By: Aime Hoskins on 06-18-2024 RBC (Bld) [#/Vol] 5.10 10*6/uL Normal 4.6-6.2 [facility] Comment on above: Performed By: #### L 100.0500 #### [facility] Laboratory [address] [place], [address] Automated blood hematocrit ( percentage)Ordered By: Aime Hoskins on 06-18-2024 Hematocrit (Bld) [Volume fraction] 43.8 % Normal 40-54 [facility] Comment on above: Performed By: #### L 100.0500 #### [facility] [address] [place], [address] CBC-Complete Blood Cnt No Di ffon 06-18-2024 RDW SD 40.6 fl Normal 35.1-43.9 [facility] Comment on above: Performed By: #### L 100.0500 #### [facility] Laboratory [address] [place], [address] Discharge Instructionon 05-26 Discharge Instruction [facility] Medical Records Department [address] [place] [address] Instructions for Home/Discharge Instructions 06/18/24 1235 MR#: [id number] Acct: [id number] Name: JAZIEL MARKS Rep #: [id number] : 1980 44 From: Bob Gan MD PCP: Dr. Nando Segovia, DO Status:REG [facility] Discharge Instructions Procedure Hernia Diet Discharge Diet: [...] to schedule 2 week follow up appointment. [phone] Test Results: Test results from this visit will be discussed in further detail at your follow-up appointment, if applicable. Discharge Plan Admission Attending Provider: Bob Gan Primary Care Provider: Nando Segovia Print Language: Montserratian Discharge Orders/Prescriptions Prescriptions: New oxycodone 5 mg [...] CC: Dr. Nando Segovia DO Signed Normal [facility] Erythrocyte distribution wid th (RBC) [Ratio]Ordered By: Aime Hoskins on 06-18-2024 Erythrocyte distribution width (RBC) [Entitic vol] 40.6 fL 35.1-43.9 [facility] Erythrocyte distribution wid th ratioOrdered By: Aimekimberly Hoskins on 06-18-2024 Erythrocyte distribution width (RBC) [Ratio] 13.1 % Normal 11.6-14.6 [facility] Comment on above: Performed By: #### L 100.0500 #### [facility] Laboratory [address] [facility] [place], [place], [address] Erythrocyte distribution wid th standard deviationOrdered By: Aime Hoskins on 06-18-2024 Erythrocyte distribution width (RBC) [Ratio] 40.6 fl 35.1-43.9 [facility] Hemoglobin measurementOrdere d By: Aime Hoskins on 06-18-2024 Hemoglobin (Bld) [Mass/Vol] 14.2 g/dL Normal 13.0-16.5 [facility] Comment on above: Performed By: #### L 100.0500 #### [facility] Laboratory [address] [place], [address] MCV (mean corpuscular volume ) determinationOrdered By: Aime Hoskins on 06-18-2024 MCV (RBC) [Entitic vol] 85.9 fL Normal 80-94 [facility] Comment on above: Performed By: #### L 100.0500 #### [facility] Laboratory [address] [place], [address] MR/POSTOP.ANEon 06-18-2024 MR/POSTOP.[facility] Medical Records Department [address] [place] [address] Anesthesia Postop Eval I 06/18/24 1233 MR#: [id number] Acct: [id number] Name: JAZIEL MARKS Rep #: [id number] : 1980 44 From: Zahida Pink PCP: Dr. Nando Segovia, DO Status:[facility] Race: C Location: [place] [address] Anesthesia: Postop Eval I Current Vital Signs [...] 1 completed: Yes 06/18/24 1241 Date Zahida Stevens Signature: Date CC: Signed Normal [facility] MR/[id number] 06-18-2024 MR/POSTOPAN2 [facility] Medical Records Department [address] [place] [address] Anesthesia Postop Eval II 06/18/24 1854 MR#: [id number] Acct: [id number] Name: JAZIEL MARKS Rep #: [id number] : 1980 44 From: Aime Hoskins MD PCP: Dr. Nando Segovia, DO Status:[facility] Y Race: C Location: [facility] Anesthesia Postop Eval I Sum Postop Eval Completion status Anesthesia document: Postop Eval 1 completed: Yes Anesthesia Postop Eval I Summary Anesthesia Postop Eval I Summary: Anesthesia Postop Eval I: Assessment Summary Airway patent Yes 06/18/24 12:41 [employer]OR [email or web address] Spontaneous unlabored Yes 06/18/24 12:41 [email or web address].GDOTT respirations Mental status Awake,Calm 06/18/24 12:41 [email or web address].GDOTT nausea No 06/18/24 12:41 [employer] CHECK[employer].GDOTT Vomiting No 06/18/24 12:41 [employer] [email or web address].GDOTT Anesthesia Postop Eval I: Fluid Summary Crystalloid volume administer 500 06/18/24 12:41 [employer]OR [email or web address].GDOTT (ml) Colloids volume administered ( ml) Blood Product volume administered (ml) Total IV fluid infused 500 06/18/24 12:41 [employer] [email or web address].GDOTT Anesthesia Postop Eval I: Summary Notes Anesthesia Complication No 06/18/24 12:41 [employer] [email or web address].GDOTT Anesthesia Complication Comment: Post-operative progress note Anesthesia: Postop Eval II Evaluation Mental status: Awake and Calm Pain Level: 1 nausea: No Vomiting: No Complications Anesthesia Complication: No 06/18/24 185 Date Aime Stevens Signature: Date CC: Signed Normal [facility] Mean corpuscular hemoglobin (MCH) determinationOrdered By: Aime Hoskins on 06-18-2024 MCH (RBC) [Entitic mass] 27.8 pg Normal 27.0-32.0 [facility] Comment on above: Performed By: #### L 100.1106 #### [facility] Laboratory [facility] [place], [address] Mean corpuscular hemoglobin concentration (MCHC) determinationOrdered By: Aime Hoskins on 06-18-2024 MCHC (RBC) [Mass/Vol] 32.4 g/dL Normal 32-36 [facility] Comment on above: Performed By: #### L 100.0500 #### [facility] Laboratory [address] [place], [address] Mean platelet volume determi nationOrdered By: Aime Hoskins on 06-18-2024 Platelet mean volume (Bld) [Entitic vol] 9.6 fL Normal 6.2-12.0 [facility] Comment on above: Performed By: #### L 100.0500 #### [facility] Laboratory [address] [place], [address] Operative Reporton 5 Operative Report [facility] Medical Records Department [address] [place] [address] Operative Report 06/18/24 1231 MR#: [id number] Acct: [id number] Name: JAZIEL MARKS Rep #: [id number] : 1980 44 From: Bob Gan MD PCP: Dr. Nando Segovia, DO Status:[facility] Location: [place] [address] Operative Report (Standard) Operative Information Date of Procedure: 06/18/24 Pre-Operative Diagnosis: 1. Umbilical hernia 2. Request for sterilization via vasectomy Post-Operative Diagnosis: Same Surgery/Procedure Performed: 1. Umbilical hernia repair 2. Bilateral partial vasectomy for sterilization medical aides teacher: Yes Manufacturing Applications Engineer: Sabina Wood Tasks completed by senior assistant manager: Opening closing and Retracting Type of Anesthesia: [...] CC: Dr. Bob Gan MD; Dr. Nando Sgeovia DO Signed Normal [facility] Platelet countOrdered By: Leann on 06-18-2024 Platelets (Bld) [#/Vol] 284 10*3/uL Normal 150-450 [facility] Comment on above: Performed By: #### L 100.0500 #### [facility] Laboratory [address] [place], [address] Surgery Specimen Level IIon 06-18-2024 Surgery Specimen Level II ---- Patient Age/Sex Location Account Attending Physician ---- JAZIEL MARKS 44/M [facility] [id number] Dr. Bob Gan MD ---- Specimen: [id number] Received: 06/18/24 Status: [facility] Calles Num: [id number] Spec Type: VAS Subm Dr: Dr. Bob [...] one cassette. / SJ:mr 06/19/2024 TC:4 CPT: 60064 x2 ---- Patient Age/Sex Location Account Attending Physician ---- JAZIEL MARKS 44/M [facility] [id number] Dr. Bob Gan MD ---- Signed (signature on file) Dr. Sam Salazar MD 06/20/24 1355 ---- Normal [facility] Comment on above: Performed By: #### P SUII ####[facility] [id number] [facility] [place], [place], [address] White blood cell (WBC) count Ordered By: Aime Hoskins on 06-18-2024 WBC (Bld) [#/Vol] 6.9 10*3/uL Normal 4.4-11.0 [facility] Comment on above: Performed By: #### L 100.0500 #### [facility] Laboratory [address] [facility] [place], [place], [address] Surgery Visit Reporton 06-10 Surgery Visit Report [facility] [address] [facility] [place], [place] [address] OFFICE VISIT Date of Service: 06/10/24 MR#: [id number] Acct: [id number] Name: JAZIEL MARKS Rep #: [id number] : 1980 Provider: Dr. Bob zimmerman MD Age/Sex: 44/M Location: [facility] Status: Signed Intake Vital Signs 05/28/24 16:10 [...] 4 current occupational status: employed current occupation: [employer] pets and animals: Yes pets and animals: [...] General: cooperative Orientation: alert and oriented x3 [facility] Head: normal to inspection Neck Neck: normal [...] I discussed (more content not included)... Normal [facility] Diagnostic total prostate sp ecific antigen (PSA) measurementOrdered By: Nando Segovia on 06-04-2024 Prostate Specific Antigen Total 0.86 ng/mL 0.0-4.0 [facility] Comment on above: This test was perfor med using the TPSA assay method for [employer] chemistry system. Values obtained with differentassay methods cannot be used interchangably.When changing PSA assays in the course of monitoring apatient, additional sequential testing should be carriedout to confirm baseline values. Hemoglobin A1con 06-04-2024 HbA1c (Bld) [Mass fraction] 6.2 % High 3.8-5.6 [facility] Comment on above: Result Comment: Norm al < 5.7 % Prediabetic 5.7 - 6.4 % Diabetic >or= 6.5 % Please note range changes. Performed By: #### L 501.9940, L501.9985 #### [facility] Laboratory [address] [place], [address] Hemoglobin A1c percentageOrd ered By: Nando Segovia on 06-04-2024 HbA1c (Bld) [Mass fraction] 6.2 % High 3.8-5.6 [facility] Comment on above: Normal < 5.7 % Predi abetic 5.7 - 6.4 % Diabetic >or= 6.5 % Please note range changes. PSA,Total- Diagnosticon 05-25 PSA, DIAGNOSTIC 0.86 ng/mL Normal 0.0-4.0 [facility] Comment on above: Result Comment: This test was performed using the TPSA assay method for the [employer] chemistry system. Values obtained with different assay methods cannot be used interchangably. When changing PSA assays in the course of monitoring a patient, additional sequential testing should be carried out to confirm baseline values. Performed By: #### L 501.9940, L501.9985 #### [facility] [address] [place], [address] Internal Medicine Office Vis iton 05-28-2024 Internal Medicine Office Visit [facility] [address] [place] [address] [place] [address] OFFICE VISIT Date of Service: 05/28/24 MR#: [id number] Acct: [id number] Name: JAZIEL MARKS Rep #: [id number] : 1980 Provider: Dr. Nando bonilla, DO Age/Sex: 44/M Location: [facility] Status: Signed Intake Vital Signs 11/04/23 10:05 [...] Reasons: 1 Y FU Chief Complaint: yearly Equal Opportunity Counselor Required: No Accompanied by: Self Is patient [...] for 6 years no pain or issues [facility] Medical History Sleep apnea Asthma Chronic migraine Skin cancer Contact with and (suspected) exposure to other viral communicable diseases Acute pharyngitis, unspecified Surgical History S/P skin biopsy Family History Grandfather Parkinson disease Social History adopted: No household members: spouse and children number of children: 4 current occupational status: employed current occupation: [employer] pets and animals: Yes pets and animals: [...] Inspection: nor (more content not included)... Normal [facility] Emergency Department Summary on 11-04-2023 Emergency Department Summary [facility] Medical Records Department [address] [place] [address] Emergency Department Summary 11/04/23 MR#: [id number] Acct: [id number] Name: JAZIEL MARKS Rep #: [id number] : 1980 43 From: Braeden Mohan MD PCP: Dr. Nando Segovia, DO Status:[facility] ER Location: ED HPI History of Present [...] on the floor secondary to the pain. [facility] Medical History (Updated 11/04/23 @ 13:25 [...] 4 current occupational status: employed current occupation: [employer] pets and animals: Yes pets and animals: [...] was g (more content not included)... Normal [facility] Testicular with Arterial Rigo won 11-04-2023 Testicular with Arterial Flow [facility] Imaging Services [address] [place], [place] [id number] Testicular with Arterial Flow MR#: [id number] Acct: [id number] Name: JAZIEL MARKS Rep #: [id number] : 1980 M 43 From: Michael Mendez PCP: Dr. Nando Segovia, DO Status: REG Study: Testicular with Arterial Flow Date of Exam: Exam# [id number] Ordering Dr: Braeden Mohan MD [id number] INDICATION: left testicle/groin pain EXAMINATION: Ultrasound US [...] Braeden Mohan MD; Dr. Nando Segovia DO Director Embalmer: Signed Normal [facility] Urinalysis, Completeon 11-03 BACTERIA 0 SEEN Normal None Seen [facility] Comment on above: Order Comment: DEBORAH CTOR TO SPECIFY Performed By: #### L 400.0001 #### [facility] Laboratory [address] [place], [address] EPI,SQUAMOUS 0 SEEN Normal 0-5 [facility] Comment on above: Order Comment: DEBORAH CTOR TO SPECIFY Performed By: #### L 400.0001 #### [facility] Laboratory [address] [place], [address] Mucus Ql (Urine sed) 0 SEEN Normal [facility] Comment on above: Order Comment: DEBORAH CTOR TO SPECIFY Performed By: #### L 400.0001 #### [facility] Laboratory [address] [place], [address] RBC 0 SEEN Normal 0-5 [facility] Comment on above: Order Comment: DEBORAH CTOR TO SPECIFY Performed By: #### L 400.0001 #### [facility] Laboratory [address] [place], [address] WBC 0 SEEN Normal 0-5 [facility] Comment on above: Order Comment: DEBORAH CTOR TO SPECIFY Performed By: #### L 400.0001 #### [facility] Laboratory [address] [place], [address] Absolute lymphocyte countOrd ered By: Nando Segovia on 05-30-2023 Lymphocytes Auto (Unsp spec) [#/Vol] 3.13 10*3/uL 0.83-4.51 [facility] Automated lymphocyte count a s percentage of total leukocytesOrdered By: Nando Segovia on 05-30-2023 Lymphocytes/100 WBC Auto (Unsp spec) 35.4 % 19-41 [facility] Basophil percentageOrdered B y: Nando Segovia on 05-30-2023 Basophil percentage 0.75 ng/mL 0.0-4.0 [facility] Comment on above: This test was perfor med using the TPSA assay method for theDizzywood chemistry system. Values obtained with differentassay methods cannot be used interchangably.When changing PSA assays in the course of monitoring apatient, additional sequential testing should be carriedout to confirm baseline values. Basophils/100 WBC (Bld) 0.6 % 0-1 [facility] Bilirubin [Mass/Vol] 0.70 mg/dL 0.20-1.00 [facility] Comment on above: For patients on eltr ombopag therapy, use of Dimension [place] TBIL is not recommended. Chloride [Moles/Vol] 105 mmol/L 98-107 [facility] Cholesterol [Mass/Vol] 162 mg/dL <200 [facility] Comment on above: <200 mg/dL Desirable 200-240 mg/dL Borderline >240 mg/dL High Risk Eosinophils/100 WBC (Bld) 2.9 % 0-5 [facility] Glucose [Mass/Vol] 96 mg/dL 74-106 [facility] Hemoglobin (Bld) [Mass/Vol] 14.1 g/dL 13.0-16.5 [facility] Monocytes/100 WBC (Bld) 5.5 % 0-10 [facility] Neutrophils (Bld) [#/Vol] 4.9 10*3/uL 2.0-7.7 [facility] Neutrophils/100 WBC (Bld) 55.4 % 47-70 [facility] Potassium [Moles/Vol] 3.9 mmol/L 3.5-5.1 [facility] Protein [Mass/Vol] 7.4 g/dL 6.4-8.2 [facility] Sodium [Moles/Vol] 135 mmol/L 136-145 [facility] Triglyceride [Mass/Vol] 121 mg/dL <199 [facility] Comment on above: The drugs N-Acetylcy steine and Metamizole may falsely depress this assay.Serum Triglycerides Reference Interval Normal <150 mg/dL Borderline high 150 - 199 mg/dL High 200 - 499 mg/dL Very High > or = 500 mg/dL WBC (Bld) [#/Vol] 8.9 10*3/uL 4.4-11.0 [facility] Basophil percentage 0 SEEN /hpf 0-5 [facility] Bilirubin Test strip Ql (U)O rdered By: Nando Segovia on 05-30-2023 Bilirubin Ql (U) Negative Negative [facility] Determination of erythrocyte mean corpuscular volume (MCV)Ordered By: Nando Segovia on 05-30-2023 MCV (RBC) [Entitic vol] 85.2 fL 80-94 [facility] Erythrocyte distribution wid th ratioOrdered By: Nando Segovia on 05-30-2023 Erythrocyte distribution width (RBC) [Ratio] 13.3 % 11.6-14.6 [facility] Erythrocyte distribution wid th standard deviationOrdered By: Nando Segovia on 05-30-2023 Erythrocyte distribution width (RBC) [Entitic vol] 41.3 fL 35.1-43.9 [facility] Hematocrit Auto (Bld) [Volum e fraction]Ordered By: Nando Segovia on 05-30-2023 Hematocrit (Bld) [Volume fraction] 44.5 % 40-54 [facility] Immature granulocytes/100 WB C Auto (Bld)Ordered By: Nando Segovia on 05-30-2023 Immature granulocytes/100 WBC (Bld) 0.200 % 0.0-0.9 [facility] Comment on above: IG% - Immature Granu locytes (promyelocytes, myelocytes and metamyelocytes) > 1% indicates that a LEFT SHIFT is Present. Ketones Test strip Ql (U)Ord ered By: Nando Segovia on 05-30-2023 Ketones Ql (U) Negative Negative [facility] Laboratory - Chemistry and C hemistry - challengeOrdered By: Nando Segovia on 05-30-2023 Albumin/Globulin [Mass ratio] 1.3 {ratio} 0.9-2.4 [facility] ALP [Catalytic activity/Vol] 75 U/L 45-117 [facility] ALT [Catalytic activity/Vol] 40 U/L 16-61 [facility] Cholesterol in HDL [Mass/Vol] 65 mg/dL >40 [facility] Comment on above: The drugs N-Acetylcy steine and Metamizole may falsely depress this assay. Reference Range HDL <40 mg/dL Low HDL Cholesterol HDL >or= 60 mg/dL High HDL Cholesterol Cholesterol in LDL [Mass/Vol] 73 mg/dL 0-130 [facility] CO2 [Moles/Vol] 29.0 mmol/L 21.0-32.0 [facility] Globulin (S) [Mass/Vol] 3.2 g/dL 2.2-4.2 [facility] Urea nitrogen/Creatinine [Mass ratio] 15.1 mg/mg 10-20 [facility] Laboratory - Hematology and Cell countsOrdered By: Nando Segovia on 05-30-2023 MCH (RBC) [Entitic mass] 27.0 pg 27.0-32.0 [facility] MCHC (RBC) [Mass/Vol] 31.7 g/dL 32-36 [facility] Nucleated RBC/100 WBC (Bld) [Ratio] 0 % 0-5 [facility] Platelet mean volume (Bld) [Entitic vol] 9.2 fL 6.2-12.0 [facility] Platelets (Bld) [#/Vol] 295 10*3/uL 150-450 [facility] Mucus LM Ql (Urine sed)Order ed By: Nando Segovia on 05-30-2023 Mucus Ql (Urine sed) 0 SEEN /hpf [facility] Nitrite Test strip Ql (U)Ord ered By: Nando Segovia on 05-30-2023 Nitrite Ql (U) Negative Negative [facility] No Panel InformationOrdered By: Nando Segovia on 05-30-2023 Estimated GFR (MDRD) Amer 98 mL/min >60 [facility] Comment on above: GFR Calc Estimated GFR (MDRD) Non-Af Amer 81 mL/min >60 [facility] Comment on above: Non- GFR Calc VLDL Cholesterol 24 mg/dL 5-40 [facility] Urine RBC 0-5 SEEN /hpf 0-5 [facility] Protein Test strip Ql (U)Ord ered By: Nando Segovia on 05-30-2023 Protein Ql (U) Negative Negative [facility] RBC Auto (Bld) [#/Vol]Ordere d By: Nando Segovia on 05-30-2023 RBC (Bld) [#/Vol] 5.22 10*6/uL 4.6-6.2 [facility] Serum or plasma calcium aleena urement (mass/volume)Ordered By: Nando Segovia on 05-30-2023 Calcium [Mass/Vol] 9.4 mg/dL 8.5-10.1 [facility] Serum or plasma creatinine m easurement (mass/volume)Ordered By: Nando Segovia on 05-30-2023 Creatinine [Mass/Vol] 1.06 mg/dL 0.70-1.30 [facility] Comment on above: The validity of the calculated GFR & GFRAA in patients over 70 years has not been determined. Clinical correlation is essential. Serum or plasma urea nitroge n measurement (mass/volume)Ordered By: Nando Segovia on 05-30-2023 Urea nitrogen [Mass/Vol] 16 mg/dL 7-18 [facility] Squamous epithelial cells de tection in urine sediment by light microscopyOrdered By: Nando Segovia on 05-30-2023 Epithelial cells.squamous LM Ql (Urine sed) 0-5 SEEN /hpf 0-5 [facility] Thin prep Papanicolaou smear with manual screeningOrdered By: Nando Segovia on 05-30-2023 Thin prep Papanicolaou smear with manual screening 4.2 g/dL 3.2-5.0 [facility] Thin prep Papanicolaou smear with manual screening 18 U/L 15-37 [facility] Thin prep Papanicolaou smear with manual screening 1 5-15 [facility] [facility] Urine blood detectionOrdered By: Nando Segovia on 05-30-2023 RBC Ql (U) 10 /ul Negative [facility] Urine clarityOrdered By: Joon Segovia on 05-30-2023 Clarity (U) Clear Clear [facility] Urine color determinationOrd ered By: Nando Segovia on 05-30-2023 Color (U) Yellow Yellow [facility] Urine glucose detectionOrder ed By: Nando Segovia on 05-30-2023 Glucose Ql (U) Normal mg/dl Normal [facility] Urine leukocyte esterase det ection by dipstickOrdered By: Nando Segovia on 05-30-2023 Leukocyte esterase Test strip Ql (U) Negative Negative [facility] Urine pHOrdered By: Nando Segovia on 05-30-2023 pH (U) 7.0 [pH] 5.0 - 8.0 [facility] Urine sediment bacteria coun t by microscopy (number/high power field)Ordered By: Nando Segovia on 05-30-2023 Bacteria LM.HPF (Urine sed) [#/Area] 0 /[HPF] None Seen [facility] Urine specific gravity measu rementOrdered By: Nando Segovia on 05-30-2023 Specific gravity (U) [Rel density] 1.010 1.002-1.030 [facility] Urine urobilinogen measureme ntOrdered By: Nando Segovia on 05-30-2023 Urobilinogen Ql (U) Normal mg/dl Normal [facility] Whole blood hemoglobin A1c/t otal hemoglobin ratio (mass fraction)Ordered By: Nando Segovia on 05-30-2023 HbA1c (Bld) [Mass fraction] 6.0 % 3.8-5.6 [facility] Comment on above: Normal < 5.7 % Predi abetic 5.7 - 6.4 % Diabetic >or= 6.5 % Please note range changes. Memo 02-25-2023 CNOV Office Visit (UCWSTR ) JAZIEL MARKS ([id number]) 1980 M Date Time Provider Department 02/25/23 9:15 AM MAYRA ARORA [facility] During your visit today, we recorded the following information about you: Temperature Pulse Respiration Blood pressure 99.3 degrees 88/minute 16/minute 132/84 Weight 107.4 kg Mayra Arora APRN.CNP 02/25/2023 9:43 AM Signed This [...] history is provided by the patient. No english language arts teacher was used. Cough This is a new [...] on 11/05/2020) mometasone (NASONEX) 50 mcg/Actuation NASAL [place] 2 sprays in each nostril once a [...] Abdominal: Gener (more content not included)... Normal [facility] STREP A MOLECULAR (POC)on Procedural Control Valid [facility] Strep A (POCT) Negative Negative [facility] CNOVon 08-27-2022 CNOV Office Visit (UCWSTR ) JAZIEL MARKS ([id number]) 1980 M Date Time Provider Department 08/27/22 3:00 PM [place] [facility] During your visit today, we recorded the following information about you: Temperature Pulse Respiration Blood pressure 98.4 degrees 90/minute 16/minute 128/82 Weight 110.4 kg LISA Berry 08/27/2022 3:05 PM Signed This note was created using PATHEOSriter. Subjective Jaziel Marks is a 42 year [...] on 11/05/2020) mometasone (NASONEX) 50 mcg/Actuation NASAL [place] 2 sprays in each nostril once a [...] needed - mometasone (NASONEX) 50 mcg/Actuation NASAL [place] 2 sprays in each nostril once a day - Albuterol Sulfate (PROVENTIL HFA) 90 mcg/Actuation INHALATION HFAA 2 puffs every four hours as needed for (more content not included)... Normal [facility] XR ANKLE MINIMUM 3 VIEWS LEF [...] Sign Date: 04/26/2021 4:20:49 PM Ordering Provider: [facility] [place] FOOT MINIMUM 3 VIEWS LEFT on [...] Sign Date: 04/26/2021 4:21:28 PM Ordering Provider: [facility] [place] Foot - left AP and Latera l and obliqueon 11-05-2020 IMPRESSION: Refer to the result. Director Embalmer[facility] Transcribe Date/Time: Nov 05 2020 7:13P Dictated by : LAURIE ROPER MD This examination was interpreted and the report reviewed and electronically signed by: LAURIE ROPER MD on Nov 05 2020 7:16PM [facility] DIVISION OF RADIOLOGY * * *Final Report* [...] body is identified. DIVISION OF RADIOLOGY Provider, Chay [facility] - 11/05/2020 * * *Final Report* * [...] identified. IMPRESSION IMPRESSION: Refer to the result. Director Embalmer: FARNAZ Transcribe Date/Time: Nov 05 2020 7:13P Dictated by : LAURIE ROPER MD This examination was interpreted and the report reviewed and electronically signed by: LAURIE ROPER MD on Nov 05 2020 7:16PM [facility] Radiology Study [facility]narrative[facility] X[facility] Foot - left AP and Latera l and obliqueOrdered By: [facility]cf Provider on 11-05-2020 [facility] Vital Signs Date Time Vital Sign Value Performing Clinician Yohan jenkins 12-21-2024 13:33-0400 Body temperature 98.5 [degF] Dr. Nando Segovia DO Work Phone: [facility] 12-21-2024 13:33-0400 Diastolic blood pressure 94 mm[Hg] Dr. Nando Segovia DO Work Phone: [facility] 12-21-2024 13:33-0400 Heart rate 68 /min Dr. Nando Segovia DO Work Phone: [facility] 12-21-2024 13:33-0400 Respiratory rate 16 /min Dr. Nando Segovia DO Work Phone: [facility] 12-21-2024 13:33-0400 SaO2% (BldA) [Mass fraction] 100 % Dr. Nando Segovia DO Work Phone: [facility] 12-21-2024 13:33-0400 Systolic blood pressure 153 mm[Hg] Dr. Nando Segovia DO Work Phone: [facility] 12-21-2024 10:52-0400 Body mass index (BMI) [Ratio] 35.1 kg/m2 Dr. Nando Segovia DO Work Phone: [facility] 12-21-2024 10:52-0400 Body weight 107.[address] Nando Segovia DO Work Phone: [facility] 12-21-2024 10:09-0400 Body height 175.[address] Nando Segovia DO Work Phone: [facility] 06-18-2024 14:48-0500 Body temperature 98.5 [degF] Dr. Nando Segovia DO Work Phone: [facility] 06-18-2024 14:48-0500 Diastolic blood pressure 78 mm[Hg] Dr. Nando Segovia DO Work Phone: [facility] 06-18-2024 14:48-0500 Heart rate 74 /min Dr. Nando Segovia DO Work Phone: [facility] 06-18-2024 14:48-0500 Respiratory rate 16 /min Dr. Nando Segovia DO Work Phone: [facility] 06-18-2024 14:48-0500 SaO2% (BldA) [Mass fraction] 98 % Dr. Nando Segovia DO Work Phone: [facility] 06-18-2024 14:48-0500 Systolic blood pressure 128 mm[Hg] Dr. Nando Segovia DO Work Phone: [facility] 06-18-2024 10:53-0500 Body height 175.[address] Nando Segovia DO Work Phone: [facility] 06-18-2024 10:53-0500 Body mass index (BMI) [Ratio] 35.4 kg/m2 Dr. Nando Segovia DO Work Phone: [facility] 06-18-2024 10:53-0500 Body weight [address] Nando Segovia DO Work Phone: [facility] 06-10-2024 14:16-0500 Body mass index (BMI) [Ratio] 36.6 kg/m2 Dr. Nando Segovia DO Work Phone: [facility] 06-10-2024 14:16-0500 Body temperature 97.2 [degF] Dr. Nando Segovia DO Work Phone: [facility] 06-10-2024 14:16-0500 Body weight 112.[address] Nando Segovia DO Work Phone: [facility] 06-10-2024 14:16-0500 Diastolic blood pressure 90 mm[Hg] Dr. Nando Segovia DO Work Phone: [facility] 06-10-2024 14:16-0500 Heart rate 72 /min Dr. Nando Segovia DO Work Phone: [facility] 06-10-2024 14:16-0500 Respiratory rate 18 /min Dr. Nando Segovia DO Work Phone: [facility] 06-10-2024 14:16-0500 SaO2% (BldA) [Mass fraction] 100 % Dr. Nando Segovia DO Work Phone: [facility] 06-10-2024 14:16-0500 Systolic blood pressure 147 mm[Hg] Dr. Nando Segovia DO Work Phone: [facility] 05-28-2024 16:10-0500 Body mass index (BMI) [Ratio] 36.6 kg/m2 Dr. Nando Segovia DO Work Phone: [facility] 05-28-2024 16:10-0500 Body temperature 96.1 [degF] Dr. Nando Segovia DO Work Phone: [facility] 05-28-2024 16:10-0500 Body weight 112.[address] Nando Segovia DO Work Phone: [facility] 05-28-2024 16:10-0500 Diastolic blood pressure 78 mm[Hg] Dr. Nando Segovia DO Work Phone: [facility] 05-28-2024 16:10-0500 Heart rate 104 /min Dr. Nando Segovia DO Work Phone: [facility] 05-28-2024 16:10-0500 Respiratory rate 18 /min Dr. Nando Segovia DO Work Phone: [facility] 05-28-2024 16:10-0500 SaO2% (BldA) [Mass fraction] 94 % Dr. Nando Segovia DO Work Phone: [facility] 05-28-2024 16:10-0500 Systolic blood pressure 132 mm[Hg] Dr. Nando Segovia DO Work Phone: [facility] 05-30-2023 16:40-0500 Body height 176.[address] Eliana Rivera Work Phone: [facility] 05-30-2023 16:40-0500 Body mass index (BMI) [Ratio] 35 kg/m2 Dr. Eliana Rivera Work Phone: [facility] 05-30-2023 16:40-0500 Body temperature 98.8 [degF] Dr. Eliana Rivera Work Phone: [facility] 05-30-2023 16:40-0500 Body weight 109.[address] Eliana Rivera Work Phone: [facility] 05-30-2023 16:40-0500 Diastolic blood pressure 80 mm[Hg] Dr. Eliana Rivera Work Phone: [facility] 05-30-2023 16:40-0500 Heart rate 78 /min Dr. Eliana Rivera Work Phone: [facility] 05-30-2023 16:40-0500 Respiratory rate 16 /min Dr. Eliana Rivera Work Phone: [facility] 05-30-2023 16:40-0500 SaO2% (BldA) [Mass fraction] 98 % Dr. Eliana Rivera Work Phone: [facility] 05-30-2023 16:40-0500 Systolic blood pressure 120 mm[Hg] Dr. Eliana Rivera Work Phone: [facility] 02-25-2023 09:16-0400 Body temperature 99.3 [degF] Mayra Arora MATERIAL ANALYST.MAIL LIST LIBRARIAN Work Phone: [facility] 02-25-2023 09:16-0400 Body weight 107.41 kg Mayra Arora MATERIAL ANALYST.MAIL LIST LIBRARIAN Work Phone: [facility] 02-25-2023 09:16-0400 Diastolic blood pressure 84 mm[Hg] Mayra Arora MATERIAL ANALYST.MAIL LIST LIBRARIAN Work Phone: [facility] 02-25-2023 09:16-0400 Heart rate 88 /min Mayra Arora MATERIAL ANALYST.MAIL LIST LIBRARIAN Work Phone: [facility] 02-25-2023 09:16-0400 Respiratory rate 16 /min Mayra Arora MATERIAL ANALYST.MAIL LIST LIBRARIAN Work Phone: [facility] 02-25-2023 09:16-0400 SaO2% (BldA) [Mass fraction] 95 % Mayra Arora MATERIAL ANALYST.MAIL LIST LIBRARIAN Work Phone: [facility] 02-25-2023 09:16-0400 Systolic blood pressure 132 mm[Hg] Mayra Arora MATERIAL ANALYST.MAIL LIST LIBRARIAN Work Phone: [facility] 08-27-2022 14:54-0400 Body temperature 98.4 [degF] Krislyn Aberegg PA Work Phone: [facility] 08-27-2022 14:54-0400 Body weight 110.41 kg Krislyn Aberegg PA Work Phone: [facility] 08-27-2022 14:54-0400 Diastolic blood pressure 82 mm[Hg] Krislyn Aberegg PA Work Phone: [facility] 08-27-2022 14:54-0400 Heart rate 90 /min Krislyn Aberegg PA Work Phone: [facility] 08-27-2022 14:54-0400 Respiratory rate 16 /min Krislyn Aberegg PA Work Phone: [facility] 08-27-2022 14:54-0400 SaO2% (BldA) [Mass fraction] 96 % Krislyn Aberegg PA Work Phone: [facility] 08-27-2022 14:54-0400 Systolic blood pressure 128 mm[Hg] Krislyn Aberegg PA Work Phone: [facility] Encounters Encounter Date Encounter Type Care Provider Facility Start: 12-21-2024 End: 12-21-2024 Emergency department patient visit Dr. Nando Segovia DO Work Phone: -Emergency Department Work Phone: Start: 09-27-2024 End: 09-27-[address] Nando Segovia DO Work Phone: [facility] Work Phone: Start: 09-27-2024 End: 09-27-[address] Bob Gan MD -Laboratory Specimen Work Phone: Start: 09-27-2024 End: 09-27-2024 ambulatory Nando Segovia Facility:[facility] Start: 08-06-2024 End: 08-06-[address] Bob Gan MD -Laboratory, Specimen Work Phone: Start: 08-06-2024 End: 08-06-[address] Nando Segovia DO Work Phone: [facility] Work Phone: Start: 07-29-2024 End: 07-29-[address] Nando Segovia DO Work Phone: [facility] Work Phone: Start: 07-29-2024 End: 07-29-[address] Bob Gan MD -Laboratory, Specimen Work Phone: Start: 07-29-2024 End: 07-29-2024 ambulatory Nando Segovia Facility:[facility] Start: 07-27-2024 End: 07-27-[address] Nando Segovia DO Work Phone: [facility] Work Phone: Start: 07-27-2024 End: 07-27-[address] Bob Gan MD -Laboratory, Specimen Work Phone: Start: 07-26-2024 End: 07-27-[address] Nando Segovia DO Work Phone: [facility] Work Phone: Start: 07-26-2024 End: 07-26-[address] Bob Gan MD -Laboratory Work Phone: Start: 07-26-2024 End: 07-26-2024 ambulatory Nando Segovia Facility:[facility] Start: 07-02-2024 Encounter for other preprocedural examination Bob Gan [facility] Start: 06-27-2024 End: 06-27-[address] Bob Gan MD -[facility] Work Phone: Start: 06-27-2024 End: 06-27-2024 ambulatory Nando Segovia Facility:[facility] Start: 06-18-2024 End: 06-18-2024 Non-patient / Non-visit Dr. Octavio Santoyo MD -[facility] Work Phone: Start: 06-18-2024 End: 06-18-2024 Admission to same day surgery center Dr. Bob Gan MD -[facility] Start: 06-18-2024 End: 06-18-2024 ambulatory Nando Segovia Facility:[facility] Start: 06-10-2024 End: 06-10-[address] Bob Gan MD -[facility] Work Phone: Start: 06-10-2024 End: 06-10-2024 ambulatory Nando Segovia Facility:[facility] Start: 06-04-2024 End: 06-04-[address] Nando Morris DO -Laboratory, [facility] Start: 06-04-2024 End: 06-04-2024 ambulatory Nando Segovia Facility:[facility] Start: 05-28-2024 End: 05-28-[address] Nando Morris DO -[facility] Work Phone: Start: 05-28-2024 End: 05-28-2024 ambulatory Nando Segovia Facility:[facility] Start: 05-01-2024 ambulatory Nando Segovia Facilit y:[facility] Start: 11-04-2023 End: 11-04-2023 Emergency department patient visit Braeden Saxenaflo Facility:[facility] Start: 05-30-2023 End: 05-30-[address] Eliana Rivera Work Phone: [facility] Work Phone: Start: 05-30-2023 End: 05-30-[address] Eliana Rivera Work Phone: [facility] Work Phone: Start: 05-30-2023 End: 05-30-[address] Eliana Rivera Work Phone: [facility] Start: 03-24-2023 End: 03-24-[address] Eliana Rivera Work Phone: [facility] Work Phone: Start: 02-25-2023 End: 02-25-2023 ambulatory ELIANA RIVERA Facility:[facility] Start: 02-25-2023 End: 02-25-2023 Patient encounter procedure Mayra Arora MATERIAL ANALYST.MAIL LIST LIBRARIAN Work Phone: [facility] Comment on above: URI, acute (Primary Dx) Start: 08-27-2022 End: 08-27-2022 ambulatory ELIANA RIVERA Facility:[facility] Start: 08-27-2022 End: 08-27-2022 Patient encounter procedure New Sanders PA Work Phone: [facility] Comment on above: Sinobronchitis (Prim angelina Dx) Start: 04-26-2021 End: 04-26-[address] DARA KHAN DPM [facility] Start: 11-05-2020 End: 11-05-2020 Subsequent hospital visit by physician X[facility] Work Phone: Radiology Comment on above: Foot pain, left [[id number] .[id number]] Procedures Date Procedure Procedure Detail Performing Clinician Start: 12-21-2024 Urnls dip stick/tabl et reagent auto microscopy Dr. Nando Segovia DO Work Phone: Start: 12-21-2024 CT of abdomen and pe lvis without contrast Dr. Nando Segovia DO Work Phone: Start: 12-21-[address] Nando Segovia DO Work Phone: Start: 06-04-2024 Assay of prostate sp ecific antigen total Dr. Nando Segovia DO Work Phone: Comment on above: This test was perfor med using the TPSA assay method for theDavid [facility] Center[facility] Box chemistry system. Values obtained with differentassay methods cannot be used interchangably.When changing PSA assays in the course of monitoring apatient, additional sequential testing should be carriedout to confirm baseline values. Start: 02-25-2023 STREP A MOLECULAR (POC) Mayra Arora APRN.MAIL LIST LIBRARIAN Work Phone: Start: 11-05-2020 Radex foot complete minimum 3 views Kvng Gutiérrez MATERIAL ANALYST.MAIL LIST LIBRARIAN Work Phone: H/O: vasectomy S/P vasectomy Dr. Bob Gan MD Plan of Treatment Date Care Activity Detail Author Start: 12-21-2024 [facility] Start: 06-18-2024 Anesthesia hernia re pair upper abdomen nos ANES HRNA RPR UPR ABD NOS [facility] Start: 06-18-2024 RPR AA HRN 1ST < 3 CM RDC RPR AA HRN 1ST < 3 CM RDC [facility] Start: 06-18-2024 Vasectomy uni/bi spx w/postop semen exams REMOVAL OF SPERM DUCT(S) [facility] Start: 06-18-2024 Patient discharge [facility] Start: 05-28-2024 Patient referral [facility] Work Phone: Start: 12-24-2023 Covid-19 Vaccine ( season) Covid-19 Vaccine ( season) [facility] Start: 12-24-2023 Influenza vaccination Influenza Vacc ine (#1) [facility] Start: 12-23-2022 Influenza vaccination [facility] Start: 04-24-2022 DEPRESSION ASSESSMENT DEPRESSION ASS ESSMENT [facility] Start: 2014 Lipid 1996 panel - S jose miguel or Plasma Lipid Screening [facility] Start: 2014 Lipid panel Lipid Screening [facility] Start: 2014 LIPID SCREEN LIPID SCREEN [facility] Start: 1998 Urine microalbumin profile DTAP,TDAP,TD (1 - Tdap) [facility] Start: 08-27-1997 Urine microalbumin profile DTaP,Tdap,Td Vaccine (2 - Tdap) [facility] Start: 1997 Anxiety Screening Anxiety Screening [facility] Start: 1997 Depression Screening Depression Scre ening [facility] Start: 1997 HEPATITIS C SCREENING HEPATITIS C [facility] Start: 1997 Hepatitis C screening Hepatitis C [facility] Start: 1997 HIV SCREENING HIV SCREENING [facility] Start: 1997 HIV screening HIV Screening [facility] Start: 1979 COVID-19 VACCINE (#1) COVID-19 VACCI NE (#1) [facility] Start: 1979 HEPATITIS B (1 of 3 - 3-dose series) HEPATITIS B (1 of 3 - 3-dose series) [facility] Patient Education ED Kidney Ston e with Pain [facility] Work Phone: Patient referral [facility] Work Phone: Spermatozoa [Presenc e] in Semen by Light microscopy --post vasectomy [facility] Immunizations Immunization Date Immunization Notes Care Provider Lisa zuleta 02-27-2016 influenza virus vaccine, unspecified formulation Mayra Arora MATERIAL ANALYST.MAIL LIST LIBRARIAN Work Phone: [facility] 01-24-2009 influenza virus vaccine, unspecified formulation New GONZALEZ Work Phone: [facility] Work Phone: Payers Date Payer Category Payer Self-pay [id number] 2020 Unknown [employer] P[employer] [id number] 2020-Present [phone] [address] [place] [address] PPO [id number] 2009 Unknown [id number] Unknown [id number] Unknown [id number] Unknown [id number] Unknown [id number] Unknown [id number] Unknown [id number] Unknown [id number] Unknown [id number] Unknown [id number] Unknown [id number] Unknown [id number] Unknown [id number] Unknown [id number] Unknown [id number] Social History Date Type Detail Facility Never smoker [facility] Start: 1980 Sex Assigned At Male A [facility] Start: 08-27-2022 End: 12-21-2024 Tobacco smoking status NMIS Never smoked tobacco [facility] Start: 04-24-2017 End: 08-27-2022 Tobacco use and exposure Smokeless tobacco non-user [facility] Start: 11-05-2020 End: 08-27-2022 Alcohol intake Current non-drinker of alcohol (finding) [facility] Start: 1980 Sex Assigned At Not on file [facility] Start: 11-05-2020 End: 02-25-2023 History of Social function [facility] Start: 11-05-2020 End: 11-04-2023 Tobacco use panel [facility] National Score (1-100), lower number is lower risk Not on file [facility] Start: 05-30-2023 Tobacco smoking stat us NHIS Unknown if ever smoked [facility] Start: 10-06-2020 End: 11-05-2020 Exposure to SARS-CoV-2 (event) Not sure [facility] Start: 07-31-2024 End: 08-08-2024 Sex Male (finding) [facility] Goals Date Patient Goal Desired Activity /State Mental Status Date Assessment Result Facility 06-18-2024 Cognitive function Voice/Name [facility] Work Phone: Clinical Notes 11-05-2020 to 12-21-2024 Note Date & Type Note Facility 12-21-2024 Discharge summary [facility] 12-21-2024 Radiology Diagnostic study note [facility] Imaging Services [address] [place], [place] [address] Abdomen/Pelvis without Cont MR#: [id number] Acct: [id number] Name: JAZIEL MARKS RAY Rep #: [id number] : 1980 M 44 From: Eusebio Madden MD PCP: Dr. Nando Segovia, DO Status: RE G ER Study:Abdomen/Pelvis without Cont Date of Exa m: 12/21/24 Exam# [id number] Ordering Dr: Braeden Mohan MD PROCEDURE: ABDOMEN/PELVIS WITHOUT CONT 12/21/2024 REASON FOR EXAM: KIDNEY STONE TECHNIQUE: Procedure Code: CTABDPEL Modality: CT Procedure: ABDOMEN/PELVIS WITHOUT CONT Noncontrast technique limits evaluation of the abdominal and pelvic viscera. Coronal and Sagittal reconstruction series were provided. One or more dose reduction techniques were used (e.g., Automated exposure control, adjustment of the mA and/or kV according to patient size, use of iterative reconstruction technique). RADIATION DOSE SUMMARY: CTDlvol: 6.76 mGy DLP: 1341.02 mGycm COMPARISON: None. FINDINGS: Lung bases: Clear. Liver: Unremarkable. Gallbladder: Unremarkable. No biliary dilation. Spleen: Unremarkable. Pancreas: Unremarkable. Adrenals: A 2.3 cm right adrenal adenoma. The left adrenal gland is unremarkable. Kidneys: A 2 mm stone at the lower pole of the left kidney. No left hydronephrosis. A 4 mm obstructing stone at the right ureteropelvic junction causing moderate right hydronephrosis. Bladder: The bladder is unremarkable. Reproductive Organs: Unremarkable. Bowel: No bowel obstruction. No bowel wall thickening. Appendix: Unremarkable. Lymph nodes: No lymphadenopathy. Vasculature: No aneurysm. Peritoneum / Retroperitoneum: No free air or free fluid. Bones: No acute bony abnormalities. CT/Abdomen/Pelvis without Cont IMPRESSION: A 2 mm stone at the lower pole of the left kidney. No left hydronephrosis. A 4 mm obstructing stone at the right ureteropelvic junction causing moderate right hydronephrosis. Reading Location: [facility] CC: Dr. Braeden Mohan MD; Dr. Nando Segovia, DO ~ Director Embalmer: Signed [facility] 06-18-[address] [facility] Medical Records Department [address] [place] [id number] History Physical Exam 06/18/24 1100 MR#: [id number] Acct: [id number] Name: JAZIEL MARKS Rep #: [id number] : 1980 44 From: Bob Gan MD PCP: Dr. Nando Segovia, DO Status:[facility] Location: [place] [address] History and Physical Date of Admission: 06/18/24 [...] 20 mg capsule,delayed 20 mg PO DAILY 07/16/16 02/17/25 History release CPAP and supplies #1 ea 05/28/24 06/10/24 Rx sildenafil 50 mg tablet (Viagra) 50 mg PO QDAY PRN sexual activity 05/28/24 5 Rx [facility] History (Updated 06/10/24 @ 14:[address] Bob Gan MD) Encounter for vasectomy Sleep apnea Asthma Chronic migraine Skin cancer Contact with and (suspected) exposure to other viral communicable diseases Acute pharyngitis, unspecified Surgical History S/P skin biopsy Family History Grandfather Parkinson disease Social History adopted: No household members: spouse and children number of children: 4 current occupational status: employed current occupation: [employer] pets and animals: Yes pets and animals: [...] is over 1 (more content not included)... [facility] 06-10-2024 Evaluation note Diagnosis Onset Date Resolution Encounter for vasectomy acute June 10 2:00pm Umbilical hernia resolved June 10, 2024 2:00pm S/P umbilical hernia repair, follow-up exam acute June 2:22pm S/P vasectomy acute June 27, 2024 2:22pm [facility] Work Phone: 1(422) 191-882502-04-2025 Evaluation note* Diagnosis Onset Date Resolution Status [...] S/P vasectomy acute June 27, 2024 2:22pm [facility] Work Phone: 1(733) 144-588911-04-2023 NoteHNO ID: [id number] Author: Mayra Arora APRN.MAIL LIST LIBRARIAN Service: ? Author Type: Nurse Practitioner Type: [...] history is provided by the patient. No english language arts teacher was used. Cough This is a new [...] on 11/05/2020) mometasone (NASONEX) 50 mcg/Actuation NASAL [place] 2 sprays in each nostril once a [...] or signs of inj (more content not included)...[facility]11-04-2023 History of Present illness Narrative* Mayra Arora APRN.MAIL LIST LIBRARIAN - 02/25/2023 9:25 AM EDT This note was created using PATHEOSriter. Subjective Jaziel Marks is a 42 year old male. 42 year old male with PMH GERD presents for illness. Acute onset 4 days ago +sore throat +cough +congestion + headache +stuffy nose +body aches +chills Denies N/V/D Denies fever Has used Mucinex Ibuprofen Denies tobacco usage. The history is provided by the patient. No english language arts teacher was used. Cough This is a new [...] on 11/05/2020) mometasone (NASONEX) 50 mcg/Actuation NASAL [place] 2 sprays in each nostril once a [...] symptoms - STREP A MOLECULAR (POC) Mayra Arora APRN.MAIL LIST LIBRARIAN documented [facility]23 NoteHNO ID: [id number] Author: LISA Berry Service: ? Author Type: Physician Welder Setter Resistance Machine Type: Progress Notes Filed: 08/27/2022 3:05 PM Note Text: This note was created using [employer]. Subjective Jaziel Marks is a 42 year [...] on 11/05/2020) mometasone (NASONEX) 50 mcg/Actuation NASAL [place] 2 sprays in each nostril once a [...] discussed in detail warranting prompt ER evaluation. [place], [facility]05-06-2023 History of Present illness Narrative* LISA Berry - 08/27/2022 3:01 PM EDT This note was created using PATHEOSriter. Subjective Jaziel Marks is a 42 year [...] on 11/05/2020) mometasone (NASONEX) 50 mcg/Actuation NASAL [place] 2 sprays in each nostril once a [...] ER evaluation. LISA Berry documented in this encounterGood [facility]07-15-[facility]21 History of Present illness Narrative* Vega Fenton [...] 05, 2020 6:29 PM documented in this encounterGood [facility] summary Author Braeden Mohan [facility] Note Date/Time December 21, 2024 1: 12pm [facility] Medical Records Department [address] [place] [address] Emergency Department Summary 12/21/24 MR#: [id number] Acct: [id number] Name: JAZIEL MARKS Rep #:[id number] : 1980 44 From: Braeden Mohan MD PCP: Dr. Nando Segovia, DO Status:RE G ER Location: ED HPI History of Present Illness Chief Complaint: Flank Pain Narrative Narrative: 44-year-old male who denies significant past medical history presents with sudden onset of right flank pain that he has had since 830 this morning approximately 2 hours ago. He states the pain waxes and wanes, and radiates towards the front. It is in his right flank. He denies any fevers or chills. He is nauseated but has not vomited. No recent dark urine or hematuria. No problems with bowel movements. No exacerbating or alleviating factors. He states there was a period where it went away for about 15 minutes but came back and now is more unrelenting. Denies previous history of kidney stones. [facility] Medical History Encounter for sterilization Wears glasses Migraine headache Gastric reflux CPAP (continuous positive airway pressure) dependence Encounter for vasectomy Asthma Skin cancer Contact with and (suspected) exposure to other viral communicable diseases Acute pharyngitis, unspecified Home Medications ?Medication ?Instructions ?Recorded ?Last Taken ?Type omeprazole 20 mg capsule,delayed 20 mg PO DAILY 06/17/24 History release CPAP and supplies #1 ea 05/28/24 Unknown Rx sildenafil 50 mg tablet (Viagra) 50 mg PO QDAY PRN sex ual activity 05/28/24 06/16/24 Rx #7 tabs ketorolac 10 mg tablet 10 mg PO TID PRN pain 5 days #15 12/21/24 Unknown Rx tabs oxycodone-acetaminophen 5 mg-325 1 tab PO Q6H PRN pain 3 days #12 12/21/24 Unknown Rx mg tablet (Percocet) tabs tamsulosin 0.4 mg capsule (Flomax) 0.4 mg PO QHS #10 c aps 12/21/24 Unknown Rx Allergy/AdvReac Type Severity Reaction Status Date / Time No Known Allergies Allergy Verified 12/21/24 10:09 Family History Grandfather Parkinson disease Surgical History S/P vasectomy S/P umbilical hernia repair, follow-up exam Hx of oral surgery S/P skin biopsy Social History adopted: No household members: spouse and children number of children: 4 current occupational status: employed current occupation: [employer] pets and animals: Yes pets and animals: dog(s) Smoking Status: Never smoker alcohol intake: never substance use type: does not use caffeine: Yes (1) Type: coffee frequency: does not exercise seatbelt use: always do you feel safe at home: Yes ROS ROS ED ROS Narrative Review of systems positive for right flank pain, positive nausea, no vomiting. No fevers or chills. No dysuria or hematuria. No exacerbating or alleviating factors. Denies previous abdominal surgeries except for hernia. EXAM Physical Exam Narrative Exam Narrative: Afebrile. Vital signs noted. Nontoxic-appearing. Appears uncomfortable and cannot get into a comfortable position. Cardiovascular examination reveals regular rate and rhythm. Lungs are clear to auscultation bilaterally. Abdomen is soft and nontender without guarding or rebound. Negative Rovsing sign. No pain over McBurney's point. No CVA tenderness to percussion. Neurological examination nonfocal, nonlateralizing. Moves all extremities. Able to sit up on cot. Const Vital Signs: 12/21/24 10:09 12/21/24 12:09 Temperature 98.5 F Temperature Source Oral Pulse Rate 74 65 Respiratory Rate 20 H 16 Blood Pressure 146/87 H 128/88 H Blood Pressure Mean 106 101 Pulse Ox 100 100 Oxygen Delivery Method Room Air Room Air MDM MDM MDM Narrative Medical decision making narrative: The dfferential diagnosis includes but not limited to ureteral colic versus ureterolithiasis versus diverticulitis versus obstruction/partial small bowel obstruction. History and physical does not support the latter 2 diagnoses. Patient was administered morphine, and [place] and Toradol for analgesia. IV fluids run at 250 mL/h. I do feel CT imaging is indicated to look for ureteral stone and urinary obstruction. Additionally I have low suspicion for testiculartorsion based on the history and physical. I reviewed his laboratory work and he has normal white count of 8.5 with hemoglobin normal at 13.6, hematocrit 41.6, platelet count normal at 283. BMP is remarkable for glucose of 172 but normal anion gap of 12, BUN and creatinine are normal. Electrolytes are otherwise grossly unremarkable. Urinalysis shows 2+ Faas amorphus sediment with 0 bacteria and 0-5 white cells but 50-100 RBCs. I do not feel antibiotics are indicated. I reviewed the radiology report of the CT of the abdomen and pelvis which shows a 2 mm in the left renal pole but no obstruction, however on the right there is a 4 mm stone causing hydronephrosis of the right ureteropelvic junction. Upon repeat examination, he states he feels improved. He initially told the RN that he needed more pain medication, but upon my repeat examination, he stated he felt improved. He will be given the additional dose of morphine and Toradol, and discharged with prescriptions for Percocet, Flomax, and Toradol. He will follow-up with urology within the next week. Return instructions to the emergency department were reviewed with the patient and his . Disposition is discharged home in stable condition. History & Record Review Discussion w/independent historian: Patient and Family () Lab Data Attestation: I reviewed the patient's lab results. Labs: Laboratory Results - last 24 hr 12/21/24 12/21/24 10:44 11:40 WBC 8.5 RBC 4.93 Hgb 13.8 Hct 41.6 MCV 84.4 MCH 28.0 MCHC 33.2 RDW Std Deviation 40.9 RDW Coeff of Anne 13.2 Plt Count 283 MPV 9.4 Immature Gran % (Auto) 0.200 Neut % (Auto) 49.5 Lymph % (Auto) 39.8 [place] % (Auto) 6.9 Eos % (Auto) 2.8 Baso % (Auto) 0.8 Absolute Neuts (auto) 4.2 Absolute Lymphs (auto) 3.40 Nucleated RBC % 0 Sodium 137 Potassium 4.3 Chloride 101 Carbon Dioxide 24.2 Anion Gap 12 BUN 18 Creatinine 1.07 Estim Creat Clear Calc 105.38 Est GFR (MDRD) Non-Af 87 BUN/Creatinine Ratio 16.8 Glucose 172 H Calcium 9.7 Urine Color Yellow Urine Clarity Turbid Urine pH 8.0 Ur Specific [place] 1.010 Urine Protein 30 H Urine Glucose (UA) Normal Urine Ketones Negative Urine Occult Blood 250 H Urine Nitrite Negative Urine Bilirubin Negative Urine Urobilinogen Normal Ur Leukocyte Esterase Negative Urine RBC 50-100 SEEN Urine WBC 0-5 SEEN Ur Squamous Epith Cells 0 SEEN Amorphous Sediment 2+ PHOS Urine Bacteria 0 SEEN Urine Mucus 0 SEEN Radiography Diagnostic Testing: Clinical Impression(s) from Imaging Studies Abdomen/Pelvis CT 12/21/24 11:00 IMPRESSION: A 2 mm stone at the lower pole of the left kidney. No left hydronephrosis. A 4 mm obstructing stone at the right ureteropelvic junction causing moderate right hydronephrosis. Reading Location: [facility] Discharge Plan Triage Chief Complaint: Flank Pain ED Provider: Braeden Mohan Dx/Rx/DC Orders Clinical Impression: Ureterolithiasis, Right flank pain Instructions: ED Kidney Stone with Pain Prescriptions: New oxycodone-acetaminophen [Percocet] 5-325 mg tablet 1 tab PO Q6H PRN (Reason: pain) 3 Days Qty: 12 0RF tamsulosin [Flomax] 0.4 mg capsule 0.4 mg PO QHS Qty: 10 0RF ketorolac 10 mg tablet 10 mg PO TID PRN (Reason: pain) 5 Days Qty: 15 0RF No Action (DME) CPAP and supplies See Rx Instructions .Route .MEDSUPPLY Qty: 1 0RF Rx Instructions: As directed for Sleep apnea sildenafil [Viagra] 50 mg tablet 50 mg PO QDAY PRN (Reason: sexual activity) Qty: 7 3RF Rx Instructions: administer 30 minutes to 4 hours before activity omeprazole 20 MG capsule,delayed release(DR/EC) 20 mg PO DAILY Patient Comments: Primary Care Provider: Nando Segovia Referrals: Nando Segovia DO [Primary Care Provider] - Chas Hernandez MD [Med Staff - Active Staff] - 1 Week Activity Restrictions/Additional Instructions: Medication as directed for pain. Strain all urine. Return to the emergency department with fever, intractable pain, inability to take medications, new or worsening symptoms. Follow-up with urology within the next week. Light duty atwork. Flomax may make you lightheaded. Narcotic pain medication can cause nausea, vomiting, constipation, lightheadedness and dizziness, and addiction. Print Language: Montserratian Disposition Disposition: Home, Self Care What to do if you have Problems For any increased pain, shortness of breath, bleeding, nausea or vomiting, chestpain, or any unexpected problems, contact your Primary Care Provider. Call [facility] ([phone]) or report to the closest Emergency Room. Call 911 if necessary. 12/21/24 1312 <Electronically signed by Braeden Mohan MD> Cosigner Signature (if applicable): CC: Dr. 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 Strain all urine. Return to the emergency department with fever, intractable pain, inability to take medications, new or worsening symptoms. Follow-up with urology within the next week. Light duty at work. Flomax may make you lightheaded. Narcotic pain medication can cause nausea, vomiting, constipation, lightheadedness and dizziness, and addiction.[facility] Work Phone: Reason for referral (narrative)No reason for referral information availableWProtestant Hospital Work Phone: Summary Purpose Family History Relationship Condition Age at Onset Recorded Date/T raisa grandfather Parkinson's disease Unknown Advance Directives Advance Directive Response Recorded Date/ Time Living Will No July 21, 2018 11:25pm Power of Data Entry Representative No July 21 11:25pm Advance Directive Response Recorded Date/ Time Living Will Yes June 13 4:12pm Do you have a Healthcare Power of Data Entry Representative? Yes June 13, 2024 4:12pm Name of Medical Power of Data Entry Representative June 13, 2024 4:12pm Advance Directive Response Recorded Date/ Time Do you have a Healthcare Power of Data Entry Representative? Yes December 21, 2024 10:53am Chief Complaint and Reason for Visit Chief [...] June 18, 2024 11:02am HERNIA / VASECTOMY -June 27, 2024 2:22pm EORDERS July 26, 2024 9:04 am Reason for Visit Admit Date Encounter for vasectomy June 10 025 2:00pm Umbilical hernia June 10, 2024 2:00pm S/P umbilical hernia repair, follow-up e xam June 27, 2024 2:22pm S/P vasectomy June 27, 2024 2:22 pm Chief Complaint Admit Date right flank pain December 21, 2024 10 :08am Additional Source Comments (unrecognized sect ion and content) No Status Records FoundNo Status Records FoundNo Status Records Found INFORMATION SOURCE (unrecogn ized section and content) DATE CREATED AUTHOR 04/27/2021 [facility] DATE CREATED AUTHOR AUTHOR'S ORGANIZ ATION 02/26/2023 [facility] DATE CREATED AUTHOR AUTHOR'S ORGANIZ ATION [facility]/06/20[facility] Source Comments (unrecognize d section and content) In the event this informatio n is protected by the Federal Confidentiality of Alcohol and Drug Abuse Patient Records regulations: The Federal rules restrict any use of the information to criminally investigate or prosecute any alcohol or drug abuse patient.[facility] HospitalIn the event this information is protected by the Federal Confidentiality of Alcohol and Drug Abuse Patient Records regulations: The Federal rules restrict any use of the information to criminally investigate or prosecute any alcohol or drug abuse patient.[facility] HospitalIn the event this information is protected by the Federal Confidentiality of Alcohol and Drug Abuse Patient Records regulations: The Federal rules restrict any use of the information to criminally investigate or prosecute any alcohol or drug abuse patient.[facility] Reason for Visit (unrecogniz ed section and content) Reason Comments Cough Cough and congestion x 3 weeks Reason Comments Cough Cough, congestion, H A and stuffy nose x 4 days Specialty Diagnoses / Procedures Referred By Angie cole Referred To Contact Radiology / [facility] Diagnoses Foot pain, left Foot pain, left [M79.672] ROOM 10 Procedures X-RAY FOOT MINIMUM 3 VIEWS XR GENERAL 7 Kvgn Gutiérrez, YESENIA.MAIL LIST LIBRARIAN [address] [place] [address] [facility] [address] [place] [address] Referral ID Status Reason Start Date Expiration Date Visits Re quested Visits Authorized [id number] Closed 11/05/2020 11/05/2021 99 99 Care Teams (unrecognized sec tion and content) Dental Equipment Mechanic Relationship Specialty Start Date End Date Eliana Rivera DO PCP - General Family Medicine 07/14/16 Dental Equipment Mechanic Relationship Specialty Start Date End Date Eliana Rivera DO PCP - [facility] 07/14/16 Team Status: Active Member Role Status [...] Member Role Status Dates Dr. Nando Segovia , DO Primary Care Pr ovider, Attending Provider, Referring Provider Active Dental Equipment Mechanic Relationship Specialty Start Date End Date Eliana Rivera DO PCP - [facility] 07/14/16 Team Status: Active Member Role Status [...] September 27, 2024 End: September 27, 2024 Team Status: Active Member Role/Relationship Status Dates Dr. Nando Segovia DO Primary Care Provider Active Team Status: Inactive Member Role/Relationship Status Dates Dr. Nando Segovia DO Primary Care Provider Active Start: September 27, 2024 End: September 27, 2024 Dr. Bob Gan MD Attending Provider Active Start: September 27, 2024 End: September 27, 2024 Dr. Bob Gan MD Referring Provider Active Start: September 27, 2024 End: September 27, 2024 Team Status: Inactive Member Role/Relationship Status Dates Dr. Nando Segovia DO Primary Care Provider Active Start: December 21, 2024 End: December 21, 2024 Braeden Mohan MD Emergency Provider Active Star t: December 21, 2024 End: December 21, 2024 Goals (unrecognized section and content) Goals [...] BE BASED ON THE PRIMARY CLINICAL RECORDS. [facility] [employer] provides no warranty or guarantee of the accuracy or completeness of information in this document.
[2024-12-22] MEDS: 0.9% Normal Saline (1000mL) 1,000 ML 1000 ML IV (18:25)
[2024-12-22 18:33] LABS: Anion Gap 11 (5-15); BUN 20 mg/dL (4-19); BUN/Creat Ratio 12.5 RATIO (10-20); Calcium,Total 9.1 mg/dL (7.6-11.0); Carbon Dioxide 25.2 mmol/L (21.0-32.0); Chloride 103 mmol/L (98-108); Estimated Creatinine Clearance 70.86 ml/min (50-250); Glucose 173 mg/dL (70-99); Potassium 4.1 mmol/L (3.3-5.1)
[2024-12-22 19:59] VITALS: BP 148/85; PULSE 65; RESP 18; TEMP 36.4; O2SAT 99
== END 2024-12-22 19:02 | disposition home or self-care (01) ==
PROVIDERS: Emergency Provider Emergency Medicine; PCP Family Medicine; Visit Provider Emergency Medicine
DX: R11.2 Nausea with vomiting, unspecified (principal); Z85.828 Personal history of other malignant neoplasm of skin; K21.9 Gastro-esophageal reflux disease without esophagitis; Z79.899 Other long term (current) drug therapy; Z87.442 Personal history of urinary calculi
CPT/HCPCS: 80048; 96361; 96374; 96375; 99282; A4216; J2405

== ENCOUNTER → 2024-12-24 | Outpatient (CLI) | payer OTHER, SELFPAY ==
--- NOTE | 2024-12-24 14:46 | RAD_ITS ---
PROCEDURE: ABDOMEN SINGLE VIEW 12/24/2024 REASON FOR EXAM: CALCULUS OF KIDNEY TECHNIQUE: Procedure Code: RADABD Modality: DX Procedure: ABDOMEN SINGLE VIEW COMPARISON: CT abdomen and pelvis without contrast, 12/21/2024. FINDINGS: There is a nonobstructive bowel gas pattern. The proximal ureteral stone, on the right, seen on the recent CT examination is not definitely seen on the x-ray examination of the abdomen. There are 2 asymmetry seen on the right side of the sacrum either of which, or both, could be a stone. There are no significant bony abnormalities. RAD/Abdomen Single View IMPRESSION: Possible stone or stones in the distal ureter on the right. Reading Location: [id number]
== END | disposition home or self-care (01) ==
LOC: RAD 14:41
PROVIDERS: PCP Family Medicine; Referring Provider Urology; Visit Provider Urology
DX: N20.0 Calculus of kidney (principal)
CPT/HCPCS: 74018

== ENCOUNTER 2024-12-27 12:10 | Day surgery (SDC) | payer OTHER, SELFPAY ==
[2024-12-27] VITALS (9 sets, daily range): BP systolic 129–153; BP diastolic 73–98; PULSE 80–87; RESP 12–20; TEMP 36.9–37.1; O2SAT 88–98; BMI 33.2
[2024-12-27] MEDS: Lactated Ringers 1,000 ML 15 ML IV (12:55)
--- NOTE | 2024-12-27 13:08 | PRE.ANES_ITS ---
ASA Classification* ASA Classification ASA Classification: 2 Assessment & Plan Anesthesia* Anesthesia Assessment Anesthesia Assessment: Discussed sedation and/or anesthesia options, risks, benefits, and alternatives with patient/parents/legal guardian/POA. Questions invited. The patient/parents/legal guardian/POA seems to understand and agrees to proceed with anesthesia plan. Reviewed the physical assessment, medical history, allergy history and patient home medications list prior to surgery/procedure/anesthetic and documented any changes. Performed airway and anesthesia risk assessments. Anesthesia Type Anesthesia Type: General History Source History Obtained from:: Patient and Chart Anesthesia Focused Assessment* Temperature: 98.8 F Pulse Rate: 86 Blood Pressure: 141/98 Respiratory Rate: 12 Pulse Ox: 98 Oxygen Delivery Method: Room Air Airway Assessment Mouth opens: >3 cm Mallampati Score: III Teeth Condition: Caps/Crowns (Patient has several crowns. They are all tight.) Neck Range of motion (ROM): Full ROM Labs Anesthesia Preop lab: CBC WBC 8.5 K/mm3 (4.4-11.0) 12/21/24 10:44 12/21/24 RBC 4.93 M/mm3 (4.6-6.2) 12/21/24 10:44 12/21/24 Hgb 13.8 g/dL (13.0-16.5) 12/21/24 10:44 12/21/24 Hct 41.6 % (40-54) 12/21/24 10:44 12/21/24 Plt Count 283 K/mm3 (150-450) 12/21/24 10:44 12/21/24 CHEMISTRY Potassium 4.1 mmol/L (3.3-5.1) 12/22/24 17:50 12/22/24 Sodium 139 mmol/L (133-145) 12/22/24 17:50 12/22/24 Magnesium 2.2 mg/dL (1.6-2.6) 07/22/18 00:20 07/22/18 BUN 20 mg/dL (4-19) H 12/22/24 17:50 12/22/24 Creatinine 1.59 mg/dL (0.70-1.20) H 12/22/24 17:50 Glucose 173 mg/dL (70-99) H 12/22/24 17:50 12/22/24 TSH 2.75 uIU/mL (0.358-3.74) 07/22/18 00:20 COAG Pre-Assessment Diagnosis/Proposed Procedure Planned Operative Procedure(s): RIGHT URETEROSCOPY LASER STENT Anesthesia History 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 When Was Last Pacemaker Check QUESTION #4 FULL TEXT: You/Your Family Experience fever (hyperthermia) with Anesthesia Last Oral Intake Last Oral intake: Last Oral Intake NPO since 12/27/24 12:44 Meds taken in AM with sips of No 12/27/24 12:44 water? 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 Female No 12/25/24 11:59 HX of Motion Sickness No 12/25/24 11:59 HX of N/V After Surgery No 12/25/24 11:59 Non-Smoker Yes 12/25/24 11:59 Duration of Surgery greater Yes 12/25/24 11:59 than 60 minutes Number of Risk Factors 2 12/25/24 11:59 PONV Score Moderate Risk 12/25/24 11:59 Height & Weight Height & Weight: Anesthesia: Height & Weight Height 5 ft 9 in 12/27/24 12:44 Weight: 102 kg 12/27/24 12:44 Body Mass Index (BMI) 33.2 12/27/24 12:44 Respiratory Assessment Respiratory Assessment - elementary assistant principal: Respiratory Tract Infection Hx - elementary assistant principal Hx Respiratory Tract Infection No 12/25/24 11:59 STOP Sleep Apnea STOP Sleep Apnea - elementary assistant principal: STOP Sleep Apnea - elementary assistant principal Hx Hypertension No 12/25/24 11:59 Hx Sleep Apnea Yes 12/25/24 11:59 CPAP Yes 12/25/24 11:59 BIPAP No 12/25/24 11:59 Do you snore loudly (louder No 12/25/24 11:59 than talking or can be heard Do you often feel tired/ No 12/25/24 11:59 fatigued/ sleepy during daytime? Has anyone observed you stop No 12/25/24 11:59 breathing during sleep? STOP Results Positive 12/25/24 11:59 QUESTION #5 FULL TEXT : Do you snore loudly (louder than talking or can be heard through closed doors)? 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 Specify any problems Hx of Preganancy in last 3 N/A 12/25/24 11:59 Months Nurse Filling Out Transfusion [email or web address] 12/25/24 11:59 & Questions: Date: 12/25/24 12/25/24 11:59 Time: 11:59 12/25/24 11:59 Patient unable to answer at this time (ie. confused, unrespo /Reproduction History /Reproductive History - elementary assistant principal: /Reproductive Hx- elementary assistant principal Hx Now No 12/25/24 11:59 Gestational Age (in weeks): EDC: Hx Hx Para Hx Section SAB No 12/25/24 11:59 Active Medications Active Medications: Current Medications Generic Name Dose Route Start Last Admin Trade Name Freq PRN Reason Stop Dose Admin Cefazolin Sodium 2 gm/ Sodium 110 mls @ 200 mls/hr 12/27/24 14:20 Chloride IV 12/27/24 14:52 INTRAOP ONE Lactated Ringer's 1,000 mls @ 15 mls/hr 12/27/24 12:30 12/27/24 12:55 IV 15 mls/hr .Q48H DELISA Administration PFSH Medical History Non-smoker History of Holter monitoring Wears glasses Gastric reflux CPAP (continuous positive airway pressure) dependence Asthma Skin cancer Home Medications ?Medication ?Instructions ?Recorded ?Last Taken ?Type omeprazole 20 mg capsule,delayed 20 mg PO DAILY 06/17/24 History release CPAP and supplies #1 ea 05/28/24 Unknown Rx sildenafil 50 mg tablet (Viagra) 50 mg PO QDAY PRN sex ual activity 05/28/24 06/16/24 Rx #7 tabs ketorolac 10 mg tablet 10 mg PO TID PRN pain 5 days #15 12/21/24 Unknown Rx tabs oxycodone-acetaminophen 5 mg-325 1 tab PO Q6H PRN pain 3 days #12 12/21/24 12/27/24 Rx mg tablet (Percocet) tabs tamsulosin 0.4 mg capsule (Flomax) 0.4 mg PO QHS #10 c aps 12/21/24 12/23/24 Rx clobetasol 0.05 % topical cream 1 applic topical PRN P RN skin 12/22/24 Unknown History irritation ondansetron 4 mg disintegrating 4 mg PO Q6H PRN nausea and 12/22/24 12/25/24 Rx tablet vomiting #10 tabs Allergy/AdvReac Type Severity Reaction Status Date / Time No Known Allergies Allergy Verified 12/27/24 12:40 Family History Grandfather Parkinson disease Surgical History S/P vasectomy S/P umbilical hernia repair, follow-up exam Hx of oral surgery S/P skin biopsy Social History adopted: No household members: spouse and children number of children: 4 current occupational status: employed current occupation: [employer] pets and animals: Yes pets and animals: dog(s) Smoking Status: Never smoker alcohol intake: never substance use type: does not use caffeine: Yes (1) Type: coffee frequency: does not exercise seatbelt use: always do you feel safe at home: Yes Review of Systems (Anesthesia) ROS Narrative System reviewed and no additional complaints, except as documented.
[2024-12-27] MEDS: Lactated Ringers 1,000 ML 1000 ML IV (16:19)
[2024-12-27] MEDS: Midazolam 2 MG/2 ML Syringe IV (16:19)
--- NOTE | 2024-12-27 16:24 | PCM.DC ---
Discharge Instructions DC O2, CPAP, BIPAP needs Home O2 Discharge instructions: No Dressing / Incision Discharge Activity: Return to Normal Activity and May Not Drive (while taking narcotic pain medications.) Dressing / Incision Call your doctor if you observe: Fever of 101 or Higher Follow Up Care Please Follow Up With: Chas Hernandez MD When: Call [phone] for an appointment Test Results: Test results from this visit will be discussed in further detail at your follow-up appointment, if applicable. Discharge Plan Admission Primary Reason for Your Visit: right kidney stone Attending Provider: Chas Hernandez Primary Care Provider: Nando Segovia Instructions Print Language: Lithuanian Discharge Orders/Prescriptions Prescriptions: New tamsulosin [Flomax] 0.4 mg capsule 0.4 mg PO DAILY Qty: 10 0RF docusate sodium [Colace] 100 mg capsule 100 mg PO BID Qty: 20 0RF phenazopyridine [Pyridium] 100 mg tablet 100 mg PO TID Qty: 15 0RF cephalexin 500 mg capsule 500 mg PO BID Qty: 10 0RF Continued (DME) CPAP and supplies See Rx Instructions .Route .MEDSUPPLY Qty: 1 0RF Rx Instructions: As directed for Sleep apnea sildenafil [Viagra] 50 mg tablet 50 mg PO QDAY PRN (Reason: sexual activity) Qty: 7 3RF Rx Instructions: administer 30 minutes to 4 hours before activity omeprazole 20 MG capsule,delayed release(DR/EC) 20 mg PO DAILY Patient Comments: oxycodone-acetaminophen [Percocet] 5-325 mg tablet 1 tab PO Q6H PRN (Reason: pain) 3 Days Qty: 12 0RF tamsulosin [Flomax] 0.4 mg capsule 0.4 mg PO QHS Qty: 10 0RF ketorolac 10 mg tablet 10 mg PO TID PRN (Reason: pain) 5 Days Qty: 15 0RF clobetasol 0.05 % cream 1 applic topical PRN PRN (Reason: skin irritation) ondansetron 4 mg tablet,disintegrating 4 mg PO Q6H PRN (Reason: nausea and vomiting) Qty: 10 0RF Referrals / Follow Up: Nando Segovia, DO [Primary Care Provider] - Disposition Disposition (needs filled in before D/C Order can be placed): Home, Self Care
[2024-12-27] MEDS: Cefazolin 1 GM/5 ML Vial 2 GM IV (16:25)
[2024-12-27] MEDS: Lidocaine 1% (5 ml sdv) 5 ML Vial IV (16:25)
[2024-12-27] MEDS: fentaNYL 100 MCG/2 ML Ampul IV (16:25)
--- NOTE | 2024-12-27 16:56 | OP.PCM_ITS ---
Operative Report (Standard) Operative Information Date of Procedure: 12/27/24 Pre-Operative Diagnosis: Right ureteral calculi Post-Operative Diagnosis: The same Surgery/Procedure Performed: Cystoscopy, balloon dilation of the right ureter, right ureteroscopy, laser lithotripsy of stone, and right stent placement software quality specialist: No Type of Anesthesia: General RN Documented Start/Stop Times: Operation Date: 12/27/24 14:20 Case Time Into Pre-Op 12/27/24 12:22 Out of Pre-Op 12/27/24 16:17 Procedure Start Time: 16:31 Procedure Stop Time: 16:57 Select all DRAINS/GRAFTS/IMPLANTS that apply: Drains Drain details: 6 Kiswahili by 26 cm stent Estimated Blood Loss: Minimal Specimen collected: No Description of surgery: 44-year-old male who has a stone in the ureter has not been able to pass it spontaneously having lots of pain so organ to proceed with right ureteroscopy laser lithotripsy of stone and removal fragments and stent placement, he is taken back to the operating room after smooth induction of anesthesia he was placed in dorsolithotomy position penis and testicles were prepped and draped in usual fashion went into the bladder with a 21 Kisw[place]ili rigid cystourethroscope, I then cannulated the right ureteral orifice with a Glidewire and a balloon dilator balloon dilated the distal ureter and then over the wire went in with a flexible ureteroscope I was able to get up into the kidney up into the ureter and then in the mid ureter I found a stone that was a 6 mm stone stuck in the mid ureter I then used a 270 ?m laser fiber and lasered the stone into little tiny pieces once I lasered it completely then I worked my way down the ureter and then all the fragments passed in the bladder but a wire up into the kidney then went all the wire up into the kidney inspected the kidney upper pole midpole lower pole no other stone fragments seen worked my way down the ureter and then over the wire in place and the stent on the right side once the stent was in good position the stent: Kidney bladder good position the bladder was drained patient anesthetic reversed is taken back to PACU in good condition. Surgical Findings: Stone in distal ureter lasered completely Complications Complications: No Admit VTE Documentation VTE Present on Admission: No VTE Mechan Device Prophylaxis: SCD's VTE Pharm Prophylaxis ordered?: No
--- NOTE | 2024-12-27 17:05 | PCM.POST.ANE ---
Anesthesia: Postop Eval I Current Vital Signs Temperature: 98.5 F Pulse Rate: 87 Blood Pressure: 129/73 Respiratory Rate: 20 Pulse Ox: 93 Oxygen Delivery Method: Room Air Assessment Airway patent: Yes Spontaneous unlabored respirations: Yes Mental status: Awake nausea: No Vomiting: No Anesthesia Complication: No Fluid Hydration Crystalloid volume administer (ml): 900 Total IV fluid infused: 900 Progress Note Anesthesia document: Postop Eval 1 completed: Yes
--- NOTE | 2024-12-27 21:30 | POSTOPAN2_ITS ---
Anesthesia Postop Eval I Sum Postop Eval Completion status Anesthesia document: Postop Eval 1 completed: Yes Anesthesia Postop Eval I Summary Anesthesia Postop Eval I Summary: Anesthesia Postop Eval I: Assessment Summary Airway patent Yes 12/27/24 17:06 DRUG DISCOVERY INFORMATICS SPECIALIST.[email or web address] Spontaneous unlabored Yes 12/27/24 17:06 DRUG DISCOVERY INFORMATICS SPECIALIST.[email or web address] respirations Mental status Awake 12/27/24 17:06 DRUG DISCOVERY INFORMATICS SPECIALIST.[email or web address] nausea No 12/27/24 17:06 DRUG DISCOVERY INFORMATICS SPECIALIST.[email or web address] Vomiting No 12/27/24 17:06 DRUG DISCOVERY INFORMATICS SPECIALIST.[email or web address] Anesthesia Postop Eval I: Fluid Summary Crystalloid volume administer 900 12/27/24 17:06 DRUG DISCOVERY INFORMATICS SPECIALIST.[email or web address] (ml) Colloids volume administered ( ml) Blood Product volume administered (ml) Total IV fluid infused 900 12/27/24 17:06 DRUG DISCOVERY INFORMATICS SPECIALIST.[email or web address] Anesthesia Postop Eval I: Summary Notes Anesthesia Complication No 12/27/24 17:06 DRUG DISCOVERY INFORMATICS SPECIALIST.[email or web address] Anesthesia Complication Comment: Post-operative progress note Anesthesia: Postop Eval II Evaluation Mental status: Awake and Calm Pain Level: 1 nausea: No Vomiting: No Complications Anesthesia Complication: No
--- NOTE | 2024-12-27 21:30 | PCM.POSTANE2 ---
Anesthesia Postop Eval I Sum Postop Eval Completion status Anesthesia document: Postop Eval 1 completed: Yes Anesthesia Postop Eval I Summary Anesthesia Postop Eval I Summary: Anesthesia Postop Eval I: Assessment Summary Airway patent Yes 12/27/24 17:06 RATE [email or web address] Spontaneous unlabored Yes 12/27/24 17:06 RATE [email or web address] respirations Mental status Awake 12/27/24 17:06 RATE [email or web address] nausea No 12/27/24 17:06 RATE [email or web address] Vomiting No 12/27/24 17:06 RATE [email or web address] Anesthesia Postop Eval I: Fluid Summary Crystalloid volume administer 900 12/27/24 17:06 RATE [email or web address] (ml) Colloids volume administered ( ml) Blood Product volume administered (ml) Total IV fluid infused 900 12/27/24 17:06 RATE [email or web address] Anesthesia Postop Eval I: Summary Notes Anesthesia Complication No 12/27/24 17:06 RATE [email or web address] Anesthesia Complication Comment: Post-operative progress note Anesthesia: Postop Eval II Evaluation Mental status: Awake and Calm Pain Level: 1 nausea: No Vomiting: No Complications Anesthesia Complication: No
== END 2024-12-27 18:25 | disposition home or self-care (01) ==
LOC: SDC 12:15 → AC 12:15
PROVIDERS: PCP Family Medicine; Referring Provider Urology; Visit Provider Urology
PROC: 0TJ98ZZ Inspection of Ureter, Via Natural or Artificial Opening Endoscopic (ICD-10-PCS; CPT 52352; principal; 2024-12-27 14:10)
DX: N20.1 Calculus of ureter (principal); K21.9 Gastro-esophageal reflux disease without esophagitis; J45.909 Unspecified asthma, uncomplicated
CPT/HCPCS: 52356; 00873; C1769; C2617; J2405